=== PATIENT | male | born 1935 | race Caucasian/White ===

== ENCOUNTER → 2016-12-19 | Outpatient (CLI) | payer MEDICARE, BC ==
[2016-12-19 12:02] LABS: INR 1.1 (<1.2); Partial Thromboplastin Time 26.3 sec (22.0-30.0); Prothrombin Time 10.9 sec (9.0-12.0)
== END | disposition home or self-care (01) ==
LOC: LABWHC1 11:05
PROVIDERS: ATTEND Physical Medicine & Rehabilitation
DX: E11.40 Type 2 diabetes mellitus with diabetic neuropathy, unspecified (principal); M51.16 Intervertebral disc disorders with radiculopathy, lumbar region; M47.27 Other spondylosis with radiculopathy, lumbosacral region; M16.11 Unilateral primary osteoarthritis, right hip; Z51.81 Encounter for therapeutic drug level monitoring; Z79.01 Long term (current) use of anticoagulants
CPT/HCPCS: 36415; 85610; 85730

== ENCOUNTER → 2017-01-01 | Outpatient (CLI) | payer MEDICARE, BC ==
--- NOTE | 2017-01-01 16:36 | MR ---
EXAMINATION TYPE: MR lumbar spine wo con DATE OF EXAM: 01/01/2017 COMPARISON: NONE HISTORY: Spondylosis with myelopathy, pain in buttocks CONTRAST: 0 mL intravenous Gadavist. TECHNIQUE: Multiplanar, multisequence images of the lumbar spine were acquired. FINDINGS: Cord terminates at the L1 level L5-S1: Broad-based disc bulge has mild to moderate anterior thecal sac flattening. No AP spinal canal stenosis present. Facet hypertrophy is present greater on the right. Some increased signal is presen t within the disc space on the sagittal T2-weighted images. Small annular tear may be present. There is moderate right foraminal stenosis and minimal left foraminal stenosis. L4-L5: Broad-based disc bulge is present with moderate anterior thecal sac compression. Facet hypertr ophy is present with ligamentum flavum laxity. There is a severe spinal canal stenosis at this level. Severe right foraminal stenosis with disc bulge contacting the exiting nerve root is present. Severe left foraminal stenosis is also present. L3-L4: Subligamentous disc herniation is present with moderate anterior thecal sac compression. No AP spinal canal stenosis is present. Moderate bilateral foraminal narrowing is present. There may be so me contact with the exiting nerve root on the right. L2-L3: Mild disc bulge has anterior thecal sac contact. No AP spinal canal stenosis is present. Neura l foramen are patent. . L1-L2: Disc herniation is present with mild to moderate anterior thecal sac compression. No AP spinal canal stenosis present. No cord contact is evident. There is mild bilateral foraminal narrowing. Fac et hypertrophy is present. T12-L1: No significant disc bulge or disc herniation. No spinal canal stenosis. No foraminal stenos is. . Hemangiomas are noted within the L3 and L4 vertebral levels. IMPRESSION: 1. Severe Spinal canal stenosis L4-5 secondary to disc bulge and ligamentum flavum laxity. 2. Multilevel disc herniations with mild to moderate anterior thecal sac compression including L5-S1, subligamentous disc herniation L3-4, and disc bulging L2-3. 3. Multilevel foraminal narrowing due to facet hypertrophy with some contribution from disc bulging. Correlate for radicular symptoms.
== END | disposition home or self-care (01) ==
LOC: RADMRIMAIN 14:42
PROVIDERS: ATTEND Physical Medicine & Rehabilitation
DX: M48.061 Spinal stenosis, lumbar region without neurogenic claudication (principal); M99.73 Connective tissue and disc stenosis of intervertebral foramina of lumbar region; M51.16 Intervertebral disc disorders with radiculopathy, lumbar region; G95.29 Other cord compression; M53.86 Other specified dorsopathies, lumbar region
CPT/HCPCS: 72148

== ENCOUNTER → 2017-01-18 | Outpatient (CLI) | payer MEDICARE, BC ==
[2017-01-18 12:51] LABS: INR 1.2 (<1.2); Partial Thromboplastin Time 26.1 sec (22.0-30.0); Prothrombin Time 11.6 sec (9.0-12.0)
== END | disposition home or self-care (01) ==
LOC: LABWHC1 12:09
PROVIDERS: ATTEND Physical Medicine & Rehabilitation
DX: M16.11 Unilateral primary osteoarthritis, right hip (principal); M47.27 Other spondylosis with radiculopathy, lumbosacral region; M48.062 Spinal stenosis, lumbar region with neurogenic claudication; M51.17 Intervertebral disc disorders with radiculopathy, lumbosacral region; E11.40 Type 2 diabetes mellitus with diabetic neuropathy, unspecified; Z79.01 Long term (current) use of anticoagulants
CPT/HCPCS: 36415; 85610; 85730

== ENCOUNTER → 2017-02-27 | Outpatient (CLI) | payer MEDICARE, BC ==
[2017-02-27 15:08] LABS: INR 1.1 (<1.2); Partial Thromboplastin Time 24.7 sec (22.0-30.0); Prothrombin Time 10.8 sec (9.0-12.0)
== END | disposition home or self-care (01) ==
LOC: LABWHC1 14:26
PROVIDERS: ATTEND Physical Medicine & Rehabilitation
DX: M47.817 Spondylosis without myelopathy or radiculopathy, lumbosacral region (principal); M16.11 Unilateral primary osteoarthritis, right hip; M51.26 Other intervertebral disc displacement, lumbar region; M48.062 Spinal stenosis, lumbar region with neurogenic claudication; M51.17 Intervertebral disc disorders with radiculopathy, lumbosacral region; E11.40 Type 2 diabetes mellitus with diabetic neuropathy, unspecified; Z79.01 Long term (current) use of anticoagulants
CPT/HCPCS: 36415; 85610; 85730

== ENCOUNTER 2017-10-19 18:29 | Inpatient (IN) | payer MEDICARE, BC ==
[2017-10-19] MEDS ORDERED: SODIUM CHLORIDE 0.9% 1,000 ML IV STA (18:41)
[2017-10-19] MEDS ORDERED: SODIUM CHLORIDE 0.9% 500 ML IV STA (18:41)
--- NOTE | 2017-10-19 18:46 | ED ---
General Adult HPI - General Chief complaint: Neuro Symptoms/Deficit Stated complaint: altered mental status Time Seen by Provider: 10/19/17 18:40 Source: patient, RN notes reviewed, old records reviewed Mode of arrival: ambulatory Limitations: no limitations - History of Present Illness Initial comments: 81-year-old male presenting with chief complaint of confusion. Patient is accompanied by a friend who was with the patient throughout the day today. They took a nap at approximately 1 to 2 PM, patient woke at 4 PM, with confusion. This did not resolve over the next 12 hours and 45 minutes. Patient was brought to the emergency department at 1840. Patient denies headache. Denies focal numbness or weakness. He is confused, alert and oriented 1-2. Denies chest pain. Denies abdominal pain. Denies nausea vomiting. No history of fever. - Related Data Home Medications Medication Instructions Recorded Confirmed Losartan Potassium [Cozaar] 50 mg PO HS 10/07/14 10/19/17 Metoprolol Tartrate [Lopressor] 25 mg PO BID 10/07/14 10/19/17 Warfarin Sodium [Coumadin] 4 mg PO HS 10/07/14 10/19/17 Baclofen [Lioresal] 10 mg PO HS 10/19/17 10/19/17 Digoxin [Digitek] 125 mcg PO HS 10/19/17 10/19/17 Furosemide [Lasix] 20 mg PO DAILY 10/19/17 10/19/17 Furosemide [Lasix] 20 mg PO HS 10/19/17 10/19/17 Gabapentin [Neurontin] 300 mg PO HS 10/19/17 10/19/17 Insulin Detemir [Levemir Flextouch] 44 unit SQ HS 10/19/17 10/19/17 metFORMIN HCL 1,000 mg PO BID 10/19/17 10/19/17 Allergies Allergy/AdvReac Type Severity Reaction Status Date / Time No Known Allergies Allergy Verified 10/19/17 20:08 Review of Systems ROS Statement: Those systems with pertinent positive or pertinent negative responses have been documented in the HPI. ROS Other: All systems not noted in ROS Statement are negative. Past Medical History Past Medical History: Atrial Fibrillation, Diabetes Mellitus, Hypertension Additional Past Medical History / Comment(s): NEUROPATHY History of Any Multi-Drug Resistant Organisms: None Reported Past Surgical History: Hernia Repair, Orthopedic Surgery Additional Past Surgical History / Comment(s): teeth pulled, SARY HIP REPLACED, TURP, bilateral cataract removal and lens implants Past Anesthesia/Blood Transfusion Reactions: No Reported Reaction Past Psychological History: No Psychological Hx Reported Smoking Status: Never smoker Past Alcohol Use History: None Reported Past Drug Use History: None Reported - Past Family History Mother History Unknown: Yes Additional Family Medical History / Comment(s): Mother at age 70 from unknown cause. Father Family Medical History: Asthma Additional Family Medical History / Comment(s): Father from unknown cause but did have asthma. Sister(s) Additional Family Medical History / Comment(s): He has one sister that from an aneurysm. Patient has no brothers. He has sons with no major medical problems. General Exam Limitations: no limitations General appearance: alert, in no apparent distress Head exam: Present: atraumatic, normocephalic Eye exam: Present: normal appearance, PERRL, EOMI ENT exam: Present: mucous membranes dry Neck exam: Present: normal inspection. Absent: tenderness, meningismus Respiratory exam: Present: normal lung sounds bilaterally. Absent: respiratory distress, wheezes Cardiovascular Exam: Present: regular rate, normal rhythm GI/Abdominal exam: Present: soft. Absent: distended, tenderness Extremities exam: Present: normal inspection, normal capillary refill. Absent: pedal edema Neurological exam: Present: alert, CN II-XII intact, other (NIH is 0). Absent: oriented X3, motor sensory deficit Skin exam: Present: warm, dry, intact. Absent: cyanosis, diaphoretic Course Vital Signs 10/19/17 10/19/17 10/19/17 18:35 19:24 20:57 Temperature 98.5 F Pulse Rate 59 L 63 52 L Respiratory 18 16 17 Rate Blood Pressure 193/108 179/104 190/88 O2 Sat by Pulse 95 96 98 Oximetry 10/19/17 10/19/17 21:52 22:10 Temperature Pulse Rate 65 64 Respiratory 18 18 Rate Blood Pressure 245/105 180/64 O2 Sat by Pulse 99 96 Oximetry EKG Findings - EKG Comments: EKG Findings:: EKG: Atrial fibrillation, right bundle branch block, rate of 67, QRS duration 142, QTC 456 Medical Decision Making - Medical Decision Making 81-year-old male sitting with an episode of confusion and altered mental status. Patient has a nonfocal neurologic exam. He is confused which is new for this patient. Symptoms began approximately 5 hours prior to arrival. Significantly elevated blood pressure on initial evaluation 210/100. Otherwise well-appearing. Denies any specific complaints. Head CT is obtained is negative for intracranial hemorrhage or mass effect. CT angiography is obtained , does show a small right vertebral artery with no acute vascular pathology. CBC and CMP are unremarkable. Urinalysis is clear. INR is therapeutic. Patient will be admitted to the hospital for neurology evaluation. This episode of altered mental status is concerning for TIA versus CVA. - Lab Data Result diagrams: 10/19/17 19:00 10/19/17 19:00 Lab Results 10/19/17 10/19/17 10/19/17 Range/Units 19:00 19:00 19:00 WBC 8.5 (3.8-10.6) k/uL RBC 5.45 (4.30-5.90) m/uL Hgb 16.5 (13.0-17.5) gm/dL Hct 48.9 (39.0-53.0) % MCV 89.7 (80.0-100.0) fL MCH 30.3 (25.0-35.0) pg MCHC 33.8 (31.0-37.0) g/dL RDW 14.1 (11.5-15.5) % Plt Count 187 (150-450) k/uL Neutrophils % 65 % Lymphocytes % 22 % Monocytes % 5 % Eosinophils % 4 % Basophils % 1 % Neutrophils # 5.6 (1.3-7.7) k/uL Lymphocytes # 1.9 (1.0-4.8) k/uL Monocytes # 0.5 (0-1.0) k/uL Eosinophils # 0.3 (0-0.7) k/uL Basophils # 0.1 (0-0.2) k/uL PT (9.0-12.0) sec INR (<1.2) APTT (22.0-30.0) sec Sodium 140 (137-145) mmol/L Potassium 4.6 (3.5-5.1) mmol/L Chloride 105 (98-107) mmol/L Carbon Dioxide 26 (22-30) mmol/L Anion Gap 9 mmol/L BUN 17 (9-20) mg/dL Creatinine 0.86 (0.66-1.25) mg/dL Est GFR (CKD-EPI)AfAm >90 (>60 ml/min/1.73 sqM) Est GFR (CKD-EPI)NonAf 81 (>60 ml/min/1.73 sqM) Glucose 203 H (74-99) mg/dL Calcium 9.3 (8.4-10.2) mg/dL Total Bilirubin 0.8 (0.2-1.3) mg/dL AST 29 (17-59) U/L ALT 38 (21-72) U/L Alkaline Phosphatase 73 (38-126) U/L Total Creatine Kinase 49 L (55-170) U/L CK-MB (CK-2) 1.7 (0.0-2.4) ng/mL CK-MB (CK-2) Rel Index 3.5 Troponin I 0.012 (0.000-0.034) ng/mL Total Protein 7.3 (6.3-8.2) g/dL Albumin 4.5 (3.5-5.0) g/dL Urine Color Urine Appearance (Clear) Urine pH (5.0-8.0) Ur Specific [place] (1.001-1.035) Urine Protein (Negative) Urine Glucose (UA) (Negative) Urine Ketones (Negative) Urine Blood (Negative) Urine Nitrite (Negative) Urine Bilirubin (Negative) Urine Urobilinogen (<2.0) mg/dL Ur Leukocyte Esterase (Negative) 10/19/17 10/19/17 Range/Units 19:00 21:40 WBC (3.8-10.6) k/uL RBC (4.30-5.90) m/uL Hgb (13.0-17.5) gm/dL Hct (39.0-53.0) % MCV (80.0-100.0) fL MCH (25.0-35.0) pg MCHC (31.0-37.0) g/dL RDW (11.5-15.5) % Plt Count (150-450) k/uL Neutrophils % % Lymphocytes % % Monocytes % % Eosinophils % % Basophils % % Neutrophils # (1.3-7.7) k/uL Lymphocytes # (1.0-4.8) k/uL Monocytes # (0-1.0) k/uL Eosinophils # (0-0.7) k/uL Basophils # (0-0.2) k/uL PT 25.9 H (9.0-12.0) sec INR 2.9 H (<1.2) APTT 33.7 H (22.0-30.0) sec Sodium (137-145) mmol/L Potassium (3.5-5.1) mmol/L Chloride (98-107) mmol/L Carbon Dioxide (22-30) mmol/L Anion Gap mmol/L BUN (9-20) mg/dL Creatinine (0.66-1.25) mg/dL Est GFR (CKD-EPI)AfAm (>60 ml/min/1.73 sqM) Est GFR (CKD-EPI)NonAf (>60 ml/min/1.73 sqM) Glucose (74-99) mg/dL Calcium (8.4-10.2) mg/dL Total Bilirubin (0.2-1.3) mg/dL AST (17-59) U/L ALT (21-72) U/L Alkaline Phosphatase (38-126) U/L Total Creatine Kinase (55-170) U/L CK-MB (CK-2) (0.0-2.4) ng/mL CK-MB (CK-2) Rel Index Troponin I (0.000-0.034) ng/mL Total Protein (6.3-8.2) g/dL Albumin (3.5-5.0) g/dL Urine Color Yellow Urine Appearance Clear (Clear) Urine pH 7.0 (5.0-8.0) Ur Specific [place] 1.037 H (1.001-1.035) Urine Protein Trace H (Negative) Urine Glucose (UA) 3+ H (Negative) Urine Ketones Negative (Negative) Urine Blood Negative (Negative) Urine Nitrite Negative (Negative) Urine Bilirubin Negative (Negative) Urine Urobilinogen <2.0 (<2.0) mg/dL Ur Leukocyte Esterase Negative (Negative) Disposition Clinical Impression: Transient cerebral ischemia, Cerebrovascular accident Disposition: ADMITTED IP TO THIS [facility] Condition: Stable Is patient prescribed a controlled substance at d/c from ED?: No Referrals: Dominick Damian MD [Primary Care Provider] - 1-2 days Decision to Admit Reason: Admit from EC Decision Date: 10/19/17 Decision Time: 22:45
[2017-10-19 19:08] LABS: Basophils # (A) 0.1 k/uL (0-0.2); Basophils % (A) 1 %; Eosinophils # (A) 0.3 k/uL (0-0.7); Eosinophils % (A) 4 %; HCT 48.9 % (39.0-53.0); HGB 16.5 gm/dL (13.0-17.5); Lymphocytes # (A) 1.9 k/uL (1.0-4.8); Lymphocytes % (A) 22 %; MCH 30.3 pg (25.0-35.0); MCHC 33.8 g/dL (31.0-37.0); MCV 89.7 fL (80.0-100.0); Mean Platelet Volume 8.4; Monocytes # (A) 0.5 k/uL (0-1.0); Monocytes % (A) 5 %; Neutrophils # (A) 5.6 k/uL (1.3-7.7); Neutrophils % (A) 65 %; Platelet Count 187 k/uL (150-450); RBC 5.45 m/uL (4.30-5.90); RDW 14.1 % (11.5-15.5); WBC 8.5 k/uL (3.8-10.6)
[2017-10-19 19:18] LABS: ALT 38 U/L (21-72); AST 29 U/L (17-59); Albumin 4.5 g/dL (3.5-5.0); Alkaline Phosphatase 73 U/L (38-126); Anion Gap 9 mmol/L; Blood Urea Nitrogen 17 mg/dL (9-20); Calcium 9.3 mg/dL (8.4-10.2); Carbon Dioxide 26 mmol/L (22-30); Chloride 105 mmol/L (98-107); Glucose 203 mg/dL (74-99); Potassium 4.6 mmol/L (3.5-5.1); Sodium 140 mmol/L (137-145); Total Bilirubin 0.8 mg/dL (0.2-1.3); Total Protein 7.3 g/dL (6.3-8.2)
--- NOTE | 2017-10-19 19:21 | CT ---
EXAMINATION TYPE: CT brain wo con DATE OF EXAM: 10/19/2017 COMPARISON: 12/26/2014 HISTORY: Sudden onset confusion CT DLP: 1098.8 mGycm Automated exposure control for dose reduction was used. FINDINGS: There is cerebral cortical atrophy. There is enlargement of the ventricles. There is no mass effect n or midline shift. There is no sign of intracranial hemorrhage. Calvarium is intact. There is some muc osal thickening in the ethmoid air cells. IMPRESSION: CEREBRAL ATROPHY. NO ACUTE INTRACRANIAL ABNORMALITY. NO CHANGE.
--- NOTE | 2017-10-19 19:25 | XR ---
EXAMINATION TYPE: XR chest 2V DATE OF EXAM: 10/19/2017 COMPARISON: 12/26/2014 HISTORY: Weakness TECHNIQUE: Frontal and lateral views of the chest are obtained. FINDINGS: There is no heart failure nor confluent pneumonic infiltrate. There is some linear density at the right posterior lung base. There are chest leads. Bony thorax is intact. IMPRESSION: There is probably some atelectasis at the right posterior lung base that is new compared to old exam.
[2017-10-19 19:37] LABS: INR 2.9 (<1.2); Partial Thromboplastin Time 33.7 sec (22.0-30.0); Prothrombin Time 25.9 sec (9.0-12.0)
[2017-10-19 19:45] LABS: Creatine Kinase MB 1.7 ng/mL (0.0-2.4); Troponin I 0.012 ng/mL (0.000-0.034)
--- NOTE | 2017-10-19 21:13 | CT ---
EXAMINATION TYPE: CT angio head neck DATE OF EXAM: 10/19/2017 HISTORY: sudden onset confusion/neuro deficits COMPARISON: None CT DLP: 583.70 mGycm. Automated Exposure Control for Dose Reduction was Utilized. TECHNIQUE: CTA scan of the neck is performed with IV Contrast, patient injected with 65 mL of Isovue 370, axial images are obtained, coronal and sagittal reformatted images are reviewed. Three-D recons tructed images are created on an independent workstation and reviewed. FINDINGS: There is normal branching pattern of the great vessels on the aortic arch. There is arterial flow in both vertebral arteries. There is a very small right vertebral artery. There is arterial flow in the common internal and external carotid arteries bilaterally. The carotid artery bifurcations are widely patent. There is no evidence of carotid artery aneurysm or dissection. There is arterial flow in both internal carotid arteries at the skull base. There is arterial flow i n the anterior middle and posterior cerebral arteries. There is normal appearance of the vertebrobasi lar artery system. I see no evidence of aneurysm or neovascularity. There is no mass effect. There is no evidence of intracranial arterial stenosis. There is normal contrast opacification of the venous sinuses. IMPRESSION: There is a diminutive right vertebral artery. Otherwise negative CT angiogram of the head and neck.
[2017-10-19] MEDS ORDERED: SODIUM CHLORIDE 0.9% 1,000 ML IV SCH (21:45)
[2017-10-19] MEDS ORDERED: hydrALAZINE HCL 20 MG/ML 1 ML VIAL IVP STA ×2 (21:47→23:26)
[2017-10-19 21:56] LABS: Appearance,Urine Clear (Clear); Bilirubin,Urine Negative (Negative); Blood,Urine Negative (Negative); Color,Urine Yellow; Glucose,Urine (UA) 3+ (Negative); Ketones,Urine Negative (Negative); Leukocyte Esterase,Urine Negative (Negative); Nitrite,Urine Negative (Negative); Protein,Urine Trace (Negative); Specific Gravity,Urine 1.037 (1.001-1.035); Urobilinogen,Urine <2.0 mg/dL (<2.0)
[2017-10-19] MEDS ORDERED: ASPIRIN 325 MG TAB PO STA (22:34)
[2017-10-19] MEDS ORDERED: NALOXONE 0.4 MG/ML 1 ML VIAL IV PRN (23:02)
[2017-10-20 00:17] VITALS: RESP 18; BMI 31.1
[2017-10-20 05:52] LABS: Glucose,Whole Blood 199 mg/dL (75-99)
[2017-10-20] MEDS: INSULIN ASPART 100 UNIT/ML 1 ML 10 ML VIAL SQ SCH ×2 (06:46→12:41)
[2017-10-20 07:42] VITALS: BP 178/85; PULSE 71; TEMP 97.3
[2017-10-20] MEDS ORDERED: METOPROLOL TARTRATE 25 MG TAB PO SCH (09:00)
[2017-10-20] MEDS ORDERED: FUROSEMIDE 20 MG TAB PO SCH ×2 (09:00→21:00)
[2017-10-20] MEDS ORDERED: metFORMIN 500 MG TAB PO SCH (09:00)
--- NOTE | 2017-10-20 10:17 | P.HPIM ---
History of Present Illness H&P Date: 10/20/17 Chief Complaint: Altered mental status This is 81 years old male who was found to be confused at home and brought to the emergency department by his friend who lives with him in the same house. Patient stated that he had similar episode 6 month ago that was for short amount of time but resolved on its own. Patient stated that he's compliment with his medication and very organized taking his medication on daily basis and follows up with his primary care physician on regular basis as well. Patient currently is alert and oriented 3 without any confusion denying chest pain, shortness breath, nausea, vomiting, dumping, dizziness, lightheadedness, blurry vision, dysuria or recent upper respiratory symptoms. Patient denied any weight loss night sweats or low-grade fever. Patient was found to be confused after waking up from his nap yesterday by his friend who brought him to the emergency department that his symptoms resolved during the hospital stay and patient continued to be at baseline mental status for the last 12 hours according to the nursing staff and his physical examination revealed normal finding neurology was at bedside at the time when I examined the patient Review of Systems All 14 systems reviewed and negative except as above Past Medical History Past Medical History: Atrial Fibrillation, Diabetes Mellitus, Hypertension Additional Past Medical History / Comment(s): NEUROPATHY History of Any Multi-Drug Resistant Organisms: None Reported Past Surgical History: Hernia Repair, Orthopedic Surgery Additional Past Surgical History / Comment(s): teeth pulled, SARY HIP REPLACED, TURP, bilateral cataract removal and lens implants Past Anesthesia/Blood Transfusion Reactions: No Reported Reaction Past Psychological History: No Psychological Hx Reported Smoking Status: Never smoker Past Alcohol Use History: None Reported Additional Past Alcohol Use History / Comment(s): Patient is a lifelong nonsmoker. He denies any alcohol use. Past Drug Use History: None Reported - Past Family History Mother History Unknown: Yes Additional Family Medical History / Comment(s): Mother at age 70 from unknown cause. Father Family Medical History: Asthma Additional Family Medical History / Comment(s): Father from unknown cause but did have asthma. Sister(s) Additional Family Medical History / Comment(s): He has one sister that from an aneurysm. Patient has no brothers. He has sons with no major medical problems. Medications and Allergies Home Medications Medication Instructions Recorded Confirmed Type Losartan Potassium [Cozaar] 50 mg PO HS 10/07/14 10/19/17 History Metoprolol Tartrate [Lopressor] 25 mg PO BID 10/07/14 10/19/17 History Warfarin Sodium [Coumadin] 4 mg PO 10/07/14 10/19/17 History Baclofen [Lioresal] 10 mg PO HS 10/19/17 10/19/17 History Digoxin [Digitek] 125 mcg PO HS 10/19/17 10/19/17 History Furosemide [Lasix] 20 mg PO DAILY 10/19/17 10/19/17 History Furosemide [Lasix] 20 mg PO HS 10/19/17 10/19/17 History Gabapentin [Neurontin] 300 mg PO HS 10/19/17 10/19/17 History Insulin Detemir [Levemir Flextouch] 44 unit SQ 10/19/17 10/19/17 History metFORMIN HCL 1,000 mg PO BID 10/19/17 10/19/17 History Allergies Allergy/AdvReac Type Severity Reaction Status Date / Time No Known Allergies Allergy Verified 10/19/17 20:08 Physical Exam Vitals: Vital Signs Temp Pulse Pulse Resp BP BP Pulse Ox 10/20/17 07:41 97.3 F L 71 18 178/85 94 L 10/20/17 04:00 97.6 F 78 18 164/79 95 10/20/17 00:09 97.7 F 99 18 186/78 97 10/20/17 00:00 99 18 10/19/17 23:34 97.6 F 95 17 184/86 98 10/19/17 23:24 74 18 204/91 98 10/19/17 22:10 64 18 180/64 96 10/19/17 21:52 65 18 245/105 99 10/19/17 20:57 52 L 17 190/88 98 10/19/17 19:24 63 16 179/104 96 10/19/17 18:35 98.5 F 59 L 18 193/108 95 Intake and Output 10/19/17 10/20/17 10/20/17 22:59 06:59 14:59 Intake Total 10 Output Total 500 Balance -490 Intake: IV 10 0.9 10 Output: Urine 500 Other: Voiding Method Urinal Weight 104.326 kg 100.7 kg Gen.: in stated age, no acute distress Heart: Normal S1-S2 Lungs: Clear to auscultation bilaterally Abdomen: Soft, no tenderness, positive bowel sounds in all 4 quadrant no guarding or rebound Skin: No new rash Psych: Alert and oriented 3 Neuro: No focal deficit, alert and oriented 3 in no acute distress, strength of intact and equal in all 4 extremities, patient has flat affect Results CBC & Chem 7: 10/19/17 19:00 10/19/17 19:00 Labs: Abnormal Lab Results - Last 24 Hours (Table) 10/19/17 10/19/17 10/19/17 Range/Units 19:00 19:00 19:00 PT 25.9 H (9.0-12.0) sec INR 2.9 H (<1.2) APTT 33.7 H (22.0-30.0) sec Glucose 203 H (74-99) mg/dL POC Glucose (mg/dL) (75-99) mg/dL Total Creatine Kinase 49 L (55-170) U/L Ur Specific [place] (1.001-1.035) Urine Protein (Negative) Urine Glucose (UA) (Negative) 10/19/17 10/20/17 Range/Units 21:40 05:50 PT (9.0-12.0) sec INR (<1.2) APTT (22.0-30.0) sec Glucose (74-99) mg/dL POC Glucose (mg/dL) 199 H (75-99) mg/dL Total Creatine Kinase (55-170) U/L Ur Specific [place] 1.037 H (1.001-1.035) Urine Protein Trace H (Negative) Urine Glucose (UA) 3+ H (Negative) Thrombosis Risk Factor Assmnt - Choose All That Apply Any of the Below Risk Factors Present?: No Other Risk Factors: Yes Each Risk Factor Represents 3 Points: Age 75 years or older Other congenital or acquired thrombophilia - If yes, enter type in comment: No Thrombosis Risk Factor Assessment Total Risk Factor Score: 3 Thrombosis Risk Factor Assessment Level: Moderate Risk Assessment and Plan Assessment: 1. Altered mental status. 2. Diabetes mellitus with peripheral neuropathy. 3. Hypertension. 4. Atrial fibrillation. 5. Chronic back pain. 6. Osteoarthritis Etiology for his altered mental status is still living clear the patient currently alert and oriented 4 in no acute distress back at baseline without any change in his condition since admission I have discussed the case with neurology at the bedside and differential diagnoses includes but not limited to early dementia, global amnesia versus TIA. All the imaging and the blood work during this hospital stay turned to be part negative patient is back at baseline without any focal deficit his INR is therapeutic and felt stable from the medical standpoint for discharge and neurology would like patient to follow- up with him outpatient for further evaluation plan discussed with the patient was agreeable to the above and we will follow-up closely
--- NOTE | 2017-10-20 10:19 | P.DS ---
Providers Date of admission: 10/19/17 23:08 Attending physician: Parris Alvarez MD Consults: 10/19/17 23:03 Consult Physician Routine Consulting Provider: Maritza Shepard Consult Reason/Comments: Altered mental status, concern for CVA Do you want consulting provider notified?: Yes Primary care physician: [facility] Course: This is 81 years old male who presented to the hospital with altered mental status when he was found by his friend slightly confused after waking up from nap symptoms resolved during the hospital stay and all appropriate imaging and testing turned to be negative patient felt stable from the medical standpoint and after discussion with neurology patient can be discharged home safely to follow-up with his primary care physician within 7 days and with neurologist and 15 days for completion of the workup and possible need for MRI in the future patient was discharged in stable condition Patient Condition at Discharge: Stable Plan - Discharge Summary Discharge Rx Participant: No New Discharge Prescriptions: No Action Warfarin Sodium [Coumadin] 4 mg PO HS Metoprolol Tartrate [Lopressor] 25 mg PO BID Losartan Potassium [Cozaar] 50 mg PO HS metFORMIN HCL 1,000 mg PO BID Gabapentin [Neurontin] 300 mg PO HS Furosemide [Lasix] 20 mg PO DAILY Digoxin [Digitek] 125 mcg PO HS Insulin Detemir [Levemir Flextouch] 44 unit SQ HS Furosemide [Lasix] 20 mg PO HS Baclofen [Lioresal] 10 mg PO HS Discharge Medication List Losartan Potassium [Cozaar] 50 mg PO HS 10/07/14 [History] Metoprolol Tartrate [Lopressor] 25 mg PO BID 10/07/14 [History] Warfarin Sodium [Coumadin] 4 mg PO HS 10/07/14 [History] Baclofen [Lioresal] 10 mg PO HS 10/19/17 [History] Digoxin [Digitek] 125 mcg PO HS 10/19/17 [History] Furosemide [Lasix] 20 mg PO DAILY 10/19/17 [History] Furosemide [Lasix] 20 mg PO HS 10/19/17 [History] Gabapentin [Neurontin] 300 mg PO HS 10/19/17 [History] Insulin Detemir [Levemir Flextouch] 44 unit SQ HS 10/19/17 [History] metFORMIN HCL 1,000 mg PO BID 10/19/17 [History] Follow up Appointment(s)/Referral(s): Dominick Damian MD [Primary Care Provider] - 1-2 days
--- NOTE | 2017-10-20 10:21 | P.CNNES ---
History of Present Illness Consult date: 10/20/17 Reason for Consult: Patient admitted with TIA and acute confusion. History of Present Illness: This patient is a 81-year-old right-handed white male who was brought into the emergency room at [facility] yesterday evening for evaluation of acute alteration of mental status. Patient apparently had taken a nap yesterday afternoon at about 2 PM. When he had awakened he was found to have increased confusion and disorientation. Her episode lasted over 5 hours in duration. A friend was with him at the time and apparently noted the change in his mentation. He denied any headache or focal weakness. He was brought by EMS to the emergency room where he was further evaluated in the ER by Dr. Martinez. He was sent for a computed tomography scan of the brain which revealed cerebral atrophy with no acute intracranial abnormality. He was subsequent admitted to hospital with possible TIA and stroke like symptoms. The patient apparently showed significant improvement in his mental status soon after admission. His major concern has been long-standing history of chronic atrial fibrillation. He has been taking Coumadin on a regular basis for treatment. His INR on admission was therapeutic at 2.9. He also has history of underlying diabetes mellitus and apparently his blood sugars have been under fairly good control. Patient states he is now back to baseline. He is still not aware of what had occurred with his initial symptoms. He was sent for a CT angiogram of the head and neck which revealed a diminutive right vertebral artery. Otherwise a CT angiogram of the head and neck was reported negative. The patient is now resting comfortably at bedside. He denies any further recurrence of confusion or disorientation. His neurological examination at this time is nonfocal. Neurology is now been consulted for further evaluation and recommendations. Review of Systems Constitutional: Denies chills, Denies fever Eyes: denies blurred vision, denies pain Ears, nose, mouth and throat: Denies headache, Denies sore throat Cardiovascular: Denies chest pain, Denies shortness of breath Respiratory: Denies cough Gastrointestinal: Denies abdominal pain, Denies diarrhea, Denies nausea, Denies vomiting Musculoskeletal: Denies myalgias Integumentary: Denies pruritus, Denies rash Neurological: Reports change in mentation, Reports confusion, Denies numbness, Denies weakness Psychiatric: Denies anxiety, Denies depression Endocrine: Denies fatigue, Denies weight change Past Medical History Past Medical History: Atrial Fibrillation, Diabetes Mellitus, Hypertension Additional Past Medical History / Comment(s): NEUROPATHY History of Any Multi-Drug Resistant Organisms: None Reported Past Surgical History: Hernia Repair, Orthopedic Surgery Additional Past Surgical History / Comment(s): teeth pulled, SARY HIP REPLACED, TURP, bilateral cataract removal and lens implants Past Anesthesia/Blood Transfusion Reactions: No Reported Reaction Past Psychological History: No Psychological Hx Reported Smoking Status: Never smoker Past Alcohol Use History: None Reported Additional Past Alcohol Use History / Comment(s): Patient is a lifelong nonsmoker. He denies any alcohol use. Past Drug Use History: None Reported - Past Family History Mother History Unknown: Yes Additional Family Medical History / Comment(s): Mother at age 70 from unknown cause. Father Family Medical History: Asthma Additional Family Medical History / Comment(s): Father from unknown cause but did have asthma. Sister(s) Additional Family Medical History / Comment(s): He has one sister that from an aneurysm. Patient has no brothers. He has sons with no major medical problems. Medications and Allergies Home Medications Medication Instructions Recorded Confirmed Type Losartan Potassium [Cozaar] 50 mg PO HS 10/07/14 10/19/17 History Metoprolol Tartrate [Lopressor] 25 mg PO BID 10/07/14 10/19/17 History Warfarin Sodium [Coumadin] 4 mg PO HS 10/07/14 10/19/17 History Baclofen [Lioresal] 10 mg PO HS 10/19/17 10/19/17 History Digoxin [Digitek] 125 mcg PO HS 10/19/17 10/19/17 History Furosemide [Lasix] 20 mg PO DAILY 10/19/17 10/19/17 History Furosemide [Lasix] 20 mg PO HS 10/19/17 10/19/17 History Gabapentin [Neurontin] 300 mg PO HS 10/19/17 10/19/17 History Insulin Detemir [Levemir Flextouch] 44 unit SQ HS 10/19/17 10/19/17 History metFORMIN HCL 1,000 mg PO BID 10/19/17 10/19/17 History Allergies Allergy/AdvReac Type Severity Reaction Status Date / Time No Known Allergies Allergy Verified 10/19/17 20:08 Physical Examination - Vital Signs Vital Signs: Vital Signs Temp Pulse Pulse Resp BP BP Pulse Ox 08/11/18 07:41 97.3 F L 71 18 178/85 94 L 10/20/17 04:00 97.6 F 78 18 164/79 95 10/20/17 00:09 97.7 F 99 18 186/78 97 10/20/17 00:00 99 18 10/19/17 23:34 97.6 F 95 17 184/86 98 10/19/17 23:24 74 18 204/91 98 10/19/17 22:10 64 18 180/64 96 10/19/17 21:52 65 18 245/105 99 10/19/17 20:57 52 L 17 190/88 98 10/19/17 19:24 63 16 179/104 96 10/19/17 18:35 98.5 F 59 L 18 193/108 95 Intake and Output 10/19/17 10/20/17 10/20/17 22:59 06:59 14:59 Intake Total 10 Output Total 500 Balance -490 Intake: IV 10 0.9 10 Output: Urine 500 Other: Voiding Method Urinal Weight 104.326 kg 100.7 kg - Constitutional General appearance: average body habitus, cooperative - EENT EENT: PERRL, mucous membranes moist - Respiratory Respiratory: lungs clear, normal breath sounds - Cardiovascular Cardiovascular: regular rate, normal S1, normal S2 Extremities: no peripheral edema bilaterally - Gastrointestinal Gastrointestinal: normoactive bowel sounds - Integumentary Integumentary: normal - Neurologic Cranial nerve examination: PERRL, EOMI, VFF, V1/V2/V3 grossly intact, face symmetric, intact gag reflex, intact corneal reflex, normal palatal elevation Speech examination: intact Sensorimotor examination: intact Motor examination - right side: 4/5: biceps, triceps, wrist flexion, wrist extension, cupola operator, hip flexors, knee extensors, dorsiflexion, toe extension (EHL) , plantarflexion Motor examination - left side: 4/5: biceps, triceps, wrist flexion, wrist extension, cupola operator, hip flexors, knee extensors, dorsiflexion, toe extension (EHL) , plantarflexion Detailed sensory examination: intact Reflex and gait examination: intact Reflexes: 1+: ankle, bicep, knee, tricep - Musculoskeletal Musculoskeletal: no pain - Psychiatric Psychiatric: mood/affect appropriate, cooperative Results - Laboratory Findings CBC and BMP: 10/19/17 19:00 10/19/17 19:00 Abnormal Lab Findings: Abnormal Labs 10/19/17 10/19/17 10/19/17 19:00 19:00 19:00 PT 25.9 H INR 2.9 H APTT 33.7 H Glucose 203 H POC Glucose (mg/dL) Total Creatine Kinase 49 L Ur Specific [place] Urine Protein Urine Glucose (UA) 10/19/17 10/20/17 21:40 05:50 PT INR APTT Glucose POC Glucose (mg/dL) 199 H Total Creatine Kinase Ur Specific [place] 1.037 H Urine Protein Trace H Urine Glucose (UA) 3+ H Assessment and Plan (1) Chronic atrial fibrillation Current Visit: Yes Status: Acute Code(s): I48.2 - CHRONIC ATRIAL FIBRILLATION SNOMED Code(s): 755638139 (2) Acute metabolic encephalopathy Current Visit: Yes Status: Acute Code(s): G93.41 - METABOLIC ENCEPHALOPATHY SNOMED Code(s): 82751698 (3) Diabetes mellitus Current Visit: Yes Status: Acute Code(s): E11.9 - TYPE 2 DIABETES MELLITUS WITHOUT COMPLICATIONS SNOMED Code(s): 65038132 (4) Transient cerebral ischemia Current Visit: Yes Status: Acute Code(s): G45.9 - TRANSIENT CEREBRAL ISCHEMIC ATTACK, UNSPECIFIED SNOMED Code(s): 276119707 Plan: This patient is a 81-year-old right-handed white male who was brought into the emergency room late last night with episode of acute confusion. Patient apparently had taken a nap at 2 PM and suddenly awoke at about 4 PM with onset of confusion and disorientation. He was brought to the emergency room at [facility] for further evaluation. He was seen in the ER by Dr. Martinez. He underwent a computed tomography scan of the brain and CT angiogram of the head and neck. Results are as noted above. CAT scan of the brain failed to reveal any evidence of acute stroke. He does have history of underlying chronic atrial fibrillation and is been taking Coumadin at home. His INR in the ER was therapeutic at 2.9. He was admitted to hospital for further evaluation. His neurological examination today is nonfocal. Clinical history is suggesting possibility of acute TIA. We recommend that he be maintained on his Coumadin and to continue weekly monitoring and to keep his INR between 2-3 at all times. Case was discussed today with Dr. Mejia who is he admitting physician. Plans are to discharge him home and he may follow-up in the outpatient neurology clinic in 3-4 weeks. Patient's neurological exam findings at this time are nonfocal. Recommend tight control of his diabetes and his blood pressure as risk factors for recurrent TIA. His overall prognosis at this time remains guarded. Time with Patient: Greater than 30
[2017-10-20 12:42] LABS: Hemoglobin A1C 7.4 % (4.0-6.0)
[2017-10-20] MEDS ORDERED: WARFARIN 2 MG TAB PO SCH (18:00)
[2017-10-20] MEDS ORDERED: LOSARTAN 50 MG TAB PO SCH (21:00)
[2017-10-20] MEDS ORDERED: DIGOXIN 125 MCG TAB PO SCH (21:00)
[2017-10-20] MEDS ORDERED: GABAPENTIN 300 MG CAP PO SCH (21:00)
[2017-10-20] MEDS ORDERED: BACLOFEN 10 MG TAB PO SCH (21:00)
[2017-10-20] MEDS ORDERED: INSULIN DETEMIR 100 UNIT/ML 10 ML VIAL SQ SCH (21:00)
== END 2017-10-20 13:17 | disposition home or self-care (01) | DRG 69 ==
LOC: EC 18:29 → 6SEL 23:08
PROVIDERS: ADMIT Internal Medicine; ATTEND Internal Medicine
DX: G45.9 Transient cerebral ischemic attack, unspecified (principal); E11.42 Type 2 diabetes mellitus with diabetic polyneuropathy; G89.29 Other chronic pain; M54.9 Dorsalgia, unspecified; I48.2 Chronic atrial fibrillation; I10 Essential (primary) hypertension; M19.90 Unspecified osteoarthritis, unspecified site; R29.700 NIHSS score 0; Z96.1 Presence of intraocular lens; Z96.643 Presence of artificial hip joint, bilateral; Z79.01 Long term (current) use of anticoagulants; Z79.899 Other long term (current) drug therapy; Z79.4 Long term (current) use of insulin; Z82.5 Family history of asthma and other chronic lower respiratory diseases; Z98.42 Cataract extraction status, left eye; Z98.41 Cataract extraction status, right eye
CPT/HCPCS: 36415; 70450; 70496; 70498; 71046; 80053; 81003; 82550; 82553; 83036; 84484; 85025; 85610; 85730; 93005; 96361; 96374; 96376; 99285

== ENCOUNTER → 2018-09-10 | Outpatient (CLI) | payer MEDICARE, BC | END | disposition home or self-care (01) | LOC: LABWHC1 10:11 | PROVIDERS: ATTEND Nurse Practitioner Adult Health | DX: E78.2 Mixed hyperlipidemia (principal) | CPT/HCPCS: 36415; 80061; 82550; 84450; 84460 ==

== ENCOUNTER 2020-07-27 15:59 | Inpatient (IN) | payer MEDICARE, BC ==
--- NOTE | 2020-07-27 17:03 | ED ---
General Adult HPI - General Chief complaint: Abdominal Pain Stated complaint: stomach problems Time Seen by Provider: 07/27/20 16:00 Source: patient, RN notes reviewed, old records reviewed Mode of arrival: wheelchair Limitations: no limitations - History of Present Illness Initial comments: This is an 84-year-old male who presents to the emergency department complaining that his urine is dark and he can barely go. Patient states he eats and drinks a lot but over the last few days but feeling is always not urinating enough. Patient also believes over the last 6 months he may have lost some weight even though he is eating very well. Patient denies any fever chills. Patient states he feels quite right. Patient states he has no pain anywhere. Patient denies any vomiting or diarrhea. Patient denies any injury or trauma. Patient denies any back pain. - Related Data Home Medications Medication Instructions Recorded Confirmed Acetaminophen Tab [Tylenol Tab] 1,000 mg PO Q6HR PRN 07/27/20 07/27/20 Allergies Allergy/AdvReac Type Severity Reaction Status Date / Time No Known Allergies Allergy Verified 07/27/20 16:53 Review of Systems ROS Statement: Those systems with pertinent positive or pertinent negative responses have been documented in the HPI. ROS Other: All systems not noted in ROS Statement are negative. Past Medical History Past Medical History: Atrial Fibrillation, Diabetes Mellitus, Hypertension Additional Past Medical History / Comment(s): NEUROPATHY History of Any Multi-Drug Resistant Organisms: None Reported Past Surgical History: Hernia Repair, Orthopedic Surgery Additional Past Surgical History / Comment(s): teeth pulled, SARY HIP REPLACED, TURP, bilateral cataract removal and lens implants Past Anesthesia/Blood Transfusion Reactions: No Reported Reaction Past Psychological History: No Psychological Hx Reported Smoking Status: Never smoker Past Alcohol Use History: None Reported Past Drug Use History: None Reported - Past Family History Mother History Unknown: Yes Additional Family Medical History / Comment(s): Mother at age 70 from unknown cause. Father Family Medical History: Asthma Additional Family Medical History / Comment(s): Father from unknown cause but did have asthma. Sister(s) Additional Family Medical History / Comment(s): He has one sister that from an aneurysm. Patient has no brothers. He has sons with no major medical problems. General Exam - General Exam Comments Initial Comments: GENERAL: Patient is well-developed and well-nourished. Patient is nontoxic and well- hydrated and is in no acute distress. ENT: Neck is soft and supple. No significant lymphadenopathy is noted. Oropharynx is clear. Moist mucous membranes. Neck has full range of motion without eliciting any pain. EYES: The sclera were anicteric and conjunctiva were pink and moist. Extraocular movements were intact and pupils were equal round and reactive to light. Eyelids were unremarkable. PULMONARY: Unlabored respirations. Good breath sounds bilaterally. No audible rales rhonchi or wheezing was noted. CARDIOVASCULAR: There is a regular rate and rhythm without any murmurs gallops or rubs. ABDOMEN: Soft and nontender with normal bowel sounds. SKIN: Skin is clear with no lesions or rashes and otherwise unremarkable. NEUROLOGIC: Patient is alert and oriented x3. Cranial nerves II through XII are grossly intact. Motor and sensory are also intact. Normal speech, volume and content. Symmetrical smile. MUSCULOSKELETAL: Normal extremities with adequate strength and full range of motion. No lower extremity swelling or edema. No calf tenderness. LYMPHATICS: No significant lymphadenopathy is noted PSYCHIATRIC: Normal psychiatric evaluation. Limitations: no limitations Course Vital Signs 07/27/20 07/27/20 16:00 19:37 Temperature 98.0 F Pulse Rate 93 88 Respiratory 20 18 Rate Blood Pressure 185/90 184/97 O2 Sat by Pulse 96 98 Oximetry Medical Decision Making - Medical Decision Making Patient is not taking any of his medications and so sugars up over 400 and his blood pressures elevated. I gave the patient he will likely emergency department I also gave the patient hydralazine for blood pressure. I spoke with Dr. Damian he wants patient admitted so he can [place] with medications. Patient will be admitted and placed on a sliding scale. - Lab Data Result diagrams: 07/27/20 17:14 07/27/20 17:14 Lab Results 07/27/20 07/27/20 07/27/20 Range/Units 17:14 17:14 17:14 WBC 8.7 (3.8-10.6) k/uL RBC 4.91 (4.30-5.90) m/uL Hgb 15.4 (13.0-17.5) gm/dL Hct 45.3 (39.0-53.0) % MCV 92.2 (80.0-100.0) fL MCH 31.4 (25.0-35.0) pg MCHC 34.1 (31.0-37.0) g/dL RDW 13.2 (11.5-15.5) % Plt Count 129 L (150-450) k/uL MPV 9.4 Neutrophils % 75 % Lymphocytes % 14 % Monocytes % 5 % Eosinophils % 5 % Basophils % 1 % Neutrophils # 6.5 (1.3-7.7) k/uL Lymphocytes # 1.2 (1.0-4.8) k/uL Monocytes # 0.4 (0-1.0) k/uL Eosinophils # 0.4 (0-0.7) k/uL Basophils # 0.0 (0-0.2) k/uL Sodium 135 L (137-145) mmol/L Potassium 4.4 (3.5-5.1) mmol/L Chloride 103 (98-107) mmol/L Carbon Dioxide 24 (22-30) mmol/L Anion Gap 8 mmol/L BUN 15 (9-20) mg/dL Creatinine 0.64 L (0.66-1.25) mg/dL Est GFR (CKD-EPI)AfAm >90 (>60 ml/min/1.73 sqM) Est GFR (CKD-EPI)NonAf 89 (>60 ml/min/1.73 sqM) Glucose 407 H (74-99) mg/dL Calcium 9.1 (8.4-10.2) mg/dL Total Bilirubin 0.7 (0.2-1.3) mg/dL AST 17 (17-59) U/L ALT 13 (4-49) U/L Alkaline Phosphatase 90 (38-126) U/L Total Protein 6.6 (6.3-8.2) g/dL Albumin 3.9 (3.5-5.0) g/dL Urine Color Light Yellow Urine Appearance Clear (Clear) Urine pH 5.5 (5.0-8.0) Ur Specific [place] 1.030 (1.001-1.035) Urine Protein Negative (Negative) Urine Glucose (UA) 4+ H (Negative) Urine Ketones Negative (Negative) Urine Blood Negative (Negative) Urine Nitrite Negative (Negative) Urine Bilirubin Negative (Negative) Urine Urobilinogen <2.0 (<2.0) mg/dL Ur Leukocyte Esterase Negative (Negative) Disposition Clinical Impression: Hypertensive urgency, Hyperglycemia Disposition: ADMITTED IP TO THIS HOSP Referrals: Paul Damian MD [Primary Care Provider] - 1-2 days Time of Disposition: 20:03
[2020-07-27 17:23] LABS: Basophils % (A) 1 %; Eosinophils # (A) 0.4 k/uL (0-0.7); Eosinophils % (A) 5 %; HCT 45.3 % (39.0-53.0); HGB 15.4 gm/dL (13.0-17.5); Lymphocytes # (A) 1.2 k/uL (1.0-4.8); Lymphocytes % (A) 14 %; MCH 31.4 pg (25.0-35.0); MCHC 34.1 g/dL (31.0-37.0); MCV 92.2 fL (80.0-100.0); Mean Platelet Volume 9.4; Monocytes # (A) 0.4 k/uL (0-1.0); Monocytes % (A) 5 %; Neutrophils # (A) 6.5 k/uL (1.3-7.7); Neutrophils % (A) 75 %; Platelet Count 129 k/uL (150-450); RBC 4.91 m/uL (4.30-5.90); RDW 13.2 % (11.5-15.5); WBC 8.7 k/uL (3.8-10.6)
[2020-07-27 17:37] LABS: ALT 13 U/L (4-49); AST 17 U/L (17-59); African American GFR (CKD) >90 (>60 ml/min/1.73 sqM); Albumin 3.9 g/dL (3.5-5.0); Alkaline Phosphatase 90 U/L (38-126); Anion Gap 8 mmol/L; Blood Urea Nitrogen 15 mg/dL (9-20); Calcium 9.1 mg/dL (8.4-10.2); Carbon Dioxide 24 mmol/L (22-30); Chloride 103 mmol/L (98-107); Glucose 407 mg/dL (74-99); Non-African American GFR(CKD) 89 (>60 ml/min/1.73 sqM); Potassium 4.4 mmol/L (3.5-5.1); Sodium 135 mmol/L (137-145); Total Bilirubin 0.7 mg/dL (0.2-1.3); Total Protein 6.6 g/dL (6.3-8.2)
[2020-07-27 18:40] LABS: Appearance,Urine Clear (Clear); Bilirubin,Urine Negative (Negative); Blood,Urine Negative (Negative); Color,Urine Light Yellow; Glucose,Urine (UA) 4+ (Negative); Ketones,Urine Negative (Negative); Leukocyte Esterase,Urine Negative (Negative); Nitrite,Urine Negative (Negative); PH, Urine 5.5 (5.0-8.0); Protein,Urine Negative (Negative); Urobilinogen,Urine <2.0 mg/dL (<2.0)
[2020-07-27] MEDS ORDERED: hydrALAZINE HCL 20 MG/ML 1 ML VIAL IVP STA (19:50)
[2020-07-27] MEDS ORDERED: INSULIN ASPART (NovoLOG) 100 UNIT/ML VIAL SQ ONE (20:01)
[2020-07-27] MEDS ORDERED: SODIUM CHLORIDE 0.9% 1,000 ML IV ONE (20:06)
[2020-07-27] MEDS ORDERED: METOPROLOL TARTRATE 25 MG TAB PO STA (20:15)
[2020-07-27 21:43] LABS: Glucose,Whole Blood 264 mg/dL (75-99)
[2020-07-27] MEDS: INSULIN ASPART (NovoLOG) 100 UNIT/ML VIAL SQ SCH (21:49)
[2020-07-28] MEDS: lisinopriL 10 MG TAB PO SCH ×2 (02:51→21:50)
[2020-07-28] MEDS: metFORMIN 500 MG TAB PO SCH ×3 (02:51→18:23)
--- NOTE | 2020-07-28 03:08 | HP ---
HISTORY AND PHYSICAL HISTORY OF PRESENT ILLNESS: 84-year-old white male he says his urine is dark. He can barely go. He said he drinks a lot over the last few days. He is not urinating enough. He lost some weight. He is not eating well. He stopped all his medicines at home including blood pressure, diabetes mellitus. No fever or chills MEDICATIONS: Home medicines: Tylenol. ALLERGIES: Negative. REVIEW OF SYSTEMS: Fourteen-point review of systems otherwise negative except for memory loss. PAST MEDICAL HISTORY: Atrial fibrillation, diabetes mellitus, hypertension, neuropathy, hernia repair, orthopedic surgery, teeth pulled, hip replaced, TURP, cataract removals. SOCIAL HISTORY: Does not smoke, no alcohol. No drugs. FAMILY HISTORY: Mother at age 70, unknown causes. Father asthma. Sister aneurysm. PHYSICAL EXAMINATION: Vital signs stable. Afebrile. He is nontoxic, appears a little bit dry. Dry mucous membranes. HEENT within normal limits. Pupils equal, round, reactive. LUNGS: Clear. CARDIOVASCULAR: S1, S2. ABDOMEN: Soft. SKIN: Warm, dry, and intact. Neurologic: Cranial nerves are intact. Psych: Fair mood and affect. ASSESSMENT: 1. Uncontrolled diabetes mellitus, noncompliance. 2. Hypertension acceleration. We will place on sliding scale. Start metformin. Blood pressure medications. Prognosis guarded. Follow up next 24 to 48 hours. We will make sure he does not have a UTI. MMODL / IJN: [id number] /
[2020-07-28 06:14] LABS: Glucose,Whole Blood 143 mg/dL (75-99)
[2020-07-28 07:31] LABS: Glucose,Whole Blood 148 mg/dL (75-99)
[2020-07-28] MEDS: METOPROLOL TARTRATE 25 MG TAB PO SCH ×2 (09:12→21:02)
[2020-07-28] MEDS: INSULIN ASPART (NovoLOG) 100 UNIT/ML VIAL SQ SCH ×4 (09:13→21:02)
[2020-07-28 10:19] LABS: Chol/HDL Ratio 4.03; LDL Cholesterol,Calculated 93.4 mg/dL (0.0-131.0); VLDL Calculation 15.6 mg/dL (5.00-40.00)
[2020-07-28 10:28] LABS: PSA Annual Screen 0.7 ng/mL (0.0-4.0)
[2020-07-28 11:30] LABS: Glucose,Whole Blood 299 mg/dL (75-99)
[2020-07-28 17:16] LABS: Glucose,Whole Blood 179 mg/dL (75-99)
[2020-07-28 20:19] LABS: Glucose,Whole Blood 195 mg/dL (75-99)
--- NOTE | 2020-07-28 20:42 | XR ---
EXAMINATION TYPE: XR chest 1V portable DATE OF EXAM: 07/28/2020 COMPARISON: 10/19/2017. HISTORY: Shortness of breath. TECHNIQUE: Single frontal view of the chest is obtained. FINDINGS: There is no focal air space opacity, pleural effusion, or pneumothorax seen. The cardiac silhouette size is enlarged. The osseous structures are intact. IMPRESSION: No acute process.
--- NOTE | 2020-07-29 00:18 | PN ---
PROGRESS NOTE 84-year-old white male admitted with uncontrolled diabetes mellitus. Feels like his stomach is going to have ground dirt in it or something to that nature. His sugars A1c is 11.0. Sugars in 100s. He has been on metformin over the last 24-48 hours, appears to be improving. His blood pressure is better on his lisinopril. Possibly discharge him home tomorrow as he is greatly improved. We are going to do an EKG, chest x-ray. Cardiovascular S1, S2. Lungs clear. He looks weak and fatigued. GI soft. Hematology: Negative Homans. Chest x-ray is normal. EKG pending. PROGNOSIS: Guarded. Possible discharge home tomorrow. MMODL / IJN: [id number] /
[2020-07-29 05:11] LABS: ALT 10 U/L (4-49); AST 17 U/L (17-59); African American GFR (CKD) >90 (>60 ml/min/1.73 sqM); Albumin 3.5 g/dL (3.5-5.0); Alkaline Phosphatase 81 U/L (38-126); Anion Gap 5 mmol/L; Blood Urea Nitrogen 14 mg/dL (9-20); Calcium 9.1 mg/dL (8.4-10.2); Carbon Dioxide 29 mmol/L (22-30); Chloride 102 mmol/L (98-107); Glucose 126 mg/dL (74-99); Non-African American GFR(CKD) 82 (>60 ml/min/1.73 sqM); Potassium 3.9 mmol/L (3.5-5.1); Sodium 136 mmol/L (137-145); Total Bilirubin 1.1 mg/dL (0.2-1.3); Total Protein 6.1 g/dL (6.3-8.2)
[2020-07-29 07:11] LABS: Glucose,Whole Blood 141 mg/dL (75-99)
[2020-07-29] MEDS: METOPROLOL TARTRATE 25 MG TAB PO SCH ×2 (07:38→21:09)
[2020-07-29] MEDS: metFORMIN 500 MG TAB PO SCH ×2 (07:38→18:06)
[2020-07-29] MEDS: INSULIN ASPART (NovoLOG) 100 UNIT/ML VIAL SQ SCH ×4 (07:38→21:09)
[2020-07-29 11:25] LABS: Glucose,Whole Blood 191 mg/dL (75-99)
[2020-07-29 14:03] VITALS: BMI 21.7
--- NOTE | 2020-07-29 14:25 | CDI ---
Documentation Clarification Form Date: 07/29/2020 02:02:07 PM From: Patrizia Charles RN, CCDS Admit Date: 07/29/2020 10:39:00 AM Patient Name: Brandt Balderas Visit Number: [id number] Discharge Date: ATTENTION: The Clinical Documentation Specialists (CDI) and [facility] Coding Staff appreciate your assistance in clarifying documentation. Please respond to the clarification below the line at the bottom and electronically sign. The CDI & [facility] Coding staff will review the response and follow-up if needed. Please note: Queries are made part of the Legal Health Record. If you have any questions, please contact the author of this message via ITS. Dr. Paul Damian Uncontrolled Diabetes mellitus is documented in the H/P on 07/27/20 Additional specificity regarding the diabetes diagnosis is requested. History/Risk Factors: Atrial Fibrillation, Diabetes Mellitus Hypertension Clinical Indicators: 84-year-old male present to ED on 07/27 with complaints of abdominal pain, urine dark and barely going. His initial blood sugar was 407 with Hemoglobin A1c (07/28) 12.0 07/27 Vital signs in ED 185/90 93 20 98.0 07/27 Labs RBS 407 Treatment: Novolog Insulin SQ ACHS ALIZA Glucophage 500 MG PO BID W/Meals Monitor blood sugars ACHS Please clarify Uncontrolled Diabetes if known: [ ] Diabetes Type 2 with Hyperglycemia [ ] Other, please specify [ ] Unable to Determine (Template Last Revised: May 2020) MTDD
[2020-07-29 17:45] LABS: Glucose,Whole Blood 197 mg/dL (75-99)
[2020-07-29 20:26] LABS: Glucose,Whole Blood 249 mg/dL (75-99)
[2020-07-29] MEDS: lisinopriL 10 MG TAB PO SCH (21:09)
--- NOTE | 2020-07-30 03:58 | PN ---
PROGRESS NOTE An 84-year-old white male who appears to be extremely weak, unable ambulate. Sugars are now under control in the mid 100 to 200s. Cardiovascular S1-S2. Lungs clear. GI soft. Extremities very poor strength, unable to ambulate without a walker and minimal walking. We will get PT/OT involved. Continue to monitor him for generalized weakness and control his diabetes mellitus and hypertension, which appears to be improved. Echo is pending for his atrial fibrillation. Cardiology consult. PROGNOSIS: Guarded. MMODL / IJN: [id number] /
[2020-07-30 07:06] LABS: Glucose,Whole Blood 132 mg/dL (75-99)
[2020-07-30] MEDS: METOPROLOL TARTRATE 25 MG TAB PO SCH ×2 (07:53→21:57)
[2020-07-30] MEDS: INSULIN ASPART (NovoLOG) 100 UNIT/ML VIAL SQ SCH ×4 (07:53→21:57)
[2020-07-30] MEDS: metFORMIN 500 MG TAB PO SCH ×2 (07:53→17:16)
[2020-07-30 11:23] LABS: Glucose,Whole Blood 128 mg/dL (75-99)
--- NOTE | 2020-07-30 12:26 | P.CRDCN ---
History of Present Illness History of present illness: HISTORY OF PRESENTING ILLNESS This is a pleasant 84-year-old male past medical history significant for chronic persistent atrial fibrillation, hypertension, type 2 diabetes, dyslipidemia. Patient is a poor historian. He follows in the office with Dr. Mejia, last seen in 04/2019. We have been asked to see in consultation for atrial fibrillation. Patient presents to the hospital with complaints of dark urine, urinary retention, weakness, unable to ambulate. Patient states that he lives with a girlfriend. He has not been taking any of his medications at home. Per nursing, patient has been having many falls at home, unsteady, difficult to ambulate him with 2 assist. On admission, patient hyperglycemic Blood sugars 400s. From chart review and office records from 04/2019, patient was previously Coumadin for his atrial fibrillation, however at that time patient does not cla im to get his INRs checked. Unsure when this medication was stopped. However, patient has had increased falls at home. Patient is seen and examined at bedside, no acute distress. Alert, oriented x 2. Patient denies chest pain, palpitations, shortness of breath. He denies lightheaded or dizziness, however, patient is not ambulating in his room. EKG reveals atrial fibrillation, right bundle branch block, HR 87. Prior EKGs are similar. Patient not on telemetry, but per vital signs and exam patient appears rate controlled. Chest xray no acute cardiopulmonary process. Laboratory reviewed, sodium 136, K 3.9, sCr 0.79, BUN 14, blood sugar 126. Current home daily cardiac medications include lisino pril 10mg daily, metoprolol tartrate 25mg BID. REVIEW OF SYSTEMS At the time of my exam: CONSTITUTIONAL: Denies fever or chills. CARDIOVASCULAR: Denies chest pain, shortness of breath, orthopnea, PND or palpitations. RESPIRATORY: Denies cough. GASTROINTESTINAL: Denies abdominal pain, diarrhea, constipation, nausea or vomiting. MUSCULOSKELETAL: Denies myalgias. NEUROLOGIC: +weakness, Denies numbness, tingling, headacbe ENDOCRINE: +fatigue Denies weight change, polydipsia or polyurina. GENITOURINARY: Denies burning, hematuria or urgency with micturation. HEMATOLOGIC: Denies history of anemia or bleeding. PHYSICAL EXAMINATION BP 162/77 HR 82 afebrile, maintaining oxygen saturations 96% on room air. CONSTITUTIONAL: No apparent distress. HEENT: Head is normocephalic. Pupils are equal, round. Sclerae anicteric. Mucous membranes of the mouth are moist. No JVD. No carotid bruit. CHEST EXAMINATION: Lungs are clear to auscultation. No chest wall tenderness is noted on palpation or with deep breathing. HEART EXAMINATION: Regular rate and rhythm. S1, S2 heard. No murmurs, gallops or rub. ABDOMEN: Soft, nontender. Positive bowel sounds. EXTREMITIES: 2+ peripheral pulses, no lower extremity edema and no calf tenderness. NEUROLOGIC EXAMINATION: Patient is awake, alert and oriented x2. ASSESSMENT Chronic persistent atrial fibrillation -[id number] score 4. Not on anticoagulation at this time due to frequent falls at home. Hypertension Type 2 Diabetes Dyslipidemia PLAN 2D echocardiogram ordered, will follow up on the results. Patient was previously on coumadin, however, was not getting his INR checks. Unsure when this medication was stopped. Patient also with increased falls and unsteadiness at home, coumadin could have been stopped due to this. PT/OT to evaluate patient. Patient may be going to Rehab instead of home, however, he may refuse. If patient is going to rehab would benefit from anticoagulation. However, if patient refuses and returns home, anticoagulation most likely not indicated due to patient's recurrent falls. Case management consulted for Eliquis coverage. Eliquis is $450/month, however, patient could get a free month on discharge. Continue home metoprolol tartrate 25mg BID Will increase lisinopril to 20mg daily Further recommendations based on clinical course Nurse Practitioner note has been reviewed, I agree with a documented findings and plan of care. Patient was seen and examined. Past Medical History Past Medical History: Atrial Fibrillation, Diabetes Mellitus, Hypertension, Osteoarthritis (OA), Syncope Additional Past Medical History / Comment(s): IDDM type II, neuropathy bilateral feet, arthritis multiple joints. History of Any Multi-Drug Resistant Organisms: None Reported Past Surgical History: Hernia Repair, Orthopedic Surgery Additional Past Surgical History / Comment(s): Bilateral total hip arthroplasty, TURP, umbilical and R inguinal hernia repairs, bilateral cataract removals/lens implants, teeth extraction. Past Anesthesia/Blood Transfusion Reactions: No Reported Reaction Smoking Status: Never smoker - Past Family History Mother History Unknown: Yes Additional Family Medical History / Comment(s): Mother at age 70 from unknown cause. Father Family Medical History: Asthma Additional Family Medical History / Comment(s): Father from unknown cause but did have asthma. Sister(s) Family Medical History: Vascular Disorder Additional Family Medical History / Comment(s): He has one sister that from an aneurysm. Medications and Allergies Home Medications Medication Instructions Recorded Confirmed Type Acetaminophen Tab [Tylenol Tab] 1,000 mg PO Q6HR PRN 07/27/20 07/27/20 History Metoprolol Tartrate [Lopressor] 25 mg PO BID 30 Days #60 tab 07/29/20 Rx lisinopriL [Zestril] 10 mg PO DAILY@2100 30 Days #30 tab 07/29/20 Rx metFORMIN HCL [Glucophage] 500 mg PO BID-W/MEALS 30 Days #60 07/29/20 Rx tab Allergies Allergy/AdvReac Type Severity Reaction Status Date / Time No Known Allergies Allergy Verified 07/27/20 16:53 Physical Exam Vitals: Vital Signs Temp Pulse Pulse Resp BP Pulse Ox 07/30/20 05:00 97.6 F 82 16 162/77 96 07/29/20 20:08 98.1 F 93 16 151/95 94 L 07/29/20 11:45 97.7 F 72 16 113/71 95 Intake and Output 07/29/20 07/30/20 07/30/20 22:59 06:59 14:59 Intake Total 250 Output Total 875 Balance 250 -875 Intake: Oral 250 Output: Urine 875 Other: Voiding Method Diaper Diaper Incontinent Incontinent # Voids 1 4 # Bowel Movements 1 Results 07/27/20 17:14 07/29/20 04:37 Current Medications Generic Name Dose Route Start Last Admin Trade Name Freq PRN Reason Stop Dose Admin Insulin Aspart 0 unit 07/27/20 21:00 07/30/20 07:53 Insulin Aspart (Novolog) 100 Unit/Ml Vial SQ 1 unit ACHS ALIZA Administration Protocol Lisinopril 10 mg 07/27/20 23:45 07/29/20 21:09 Lisinopril 10 Mg Tab PO 10 mg DAILY@2100 ALIZA Administration Metformin HCl 500 mg 07/27/20 23:45 07/30/20 07:53 Metformin 500 Mg Tab PO 500 mg BID-W/MEALS ALIZA Administration Metoprolol Tartrate 25 mg 07/28/20 09:00 07/30/20 07:53 Metoprolol Tartrate 25 Mg Tab PO 25 mg BID ALIZA Administration Intake and Output 07/29/20 07/30/20 07/30/20 22:59 06:59 14:59 Intake Total 250 Output Total 875 Balance 250 -875 Intake: Oral 250 Output: Urine 875 Other: Voiding Method Diaper Diaper Incontinent Incontinent # Voids 1 4 # Bowel Movements 1 07/27/20 17:14 07/29/20 04:37
[2020-07-30 16:39] LABS: Glucose,Whole Blood 173 mg/dL (75-99)
[2020-07-30 21:44] LABS: Glucose,Whole Blood 191 mg/dL (75-99)
[2020-07-30] MEDS: lisinopriL 20 MG TAB PO SCH (21:57)
[2020-07-31 07:09] LABS: Glucose,Whole Blood 139 mg/dL (75-99)
[2020-07-31] MEDS: INSULIN ASPART (NovoLOG) 100 UNIT/ML VIAL SQ SCH ×4 (07:20→20:50)
[2020-07-31] MEDS: metFORMIN 500 MG TAB PO SCH ×2 (07:22→17:38)
[2020-07-31] MEDS: METOPROLOL TARTRATE 25 MG TAB PO SCH ×2 (07:22→20:50)
[2020-07-31 11:56] LABS: Glucose,Whole Blood 163 mg/dL (75-99)
--- NOTE | 2020-07-31 12:41 | PN ---
PROGRESS NOTE DATE OF SERVICE: 07/30/2020 84-year-old white male who is extremely weak and unable to get out of bed to move. His legs are weak. He is dizzy, lightheaded, going to get physical therapy working with him. He wants to go to [facility] on the [place] for further rehab. CARDIOVASCULAR: S1, S2. Lungs clear. GI soft. Hematology: Negative Homans. Psych: Fair mood and affect. ASSESSMENT: 1. Generalized weakness. 2. Uncontrolled diabetes mellitus. 3. Osteoarthritis. 4. Degenerative disc disease. 5. 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 PROGNOSIS: Guarded. Get physical therapy and to try to get him into rehab center at this time. Cardiology has seen him for atrial fibrillation and recommend some blood thinners if he goes to a custodial. Otherwise, stay on aspirin once a day. Prognosis guarded. MMROSEL / SUNDAYN: [id number] /
--- NOTE | 2020-07-31 14:21 | P.PN ---
Subjective Progress Note Date: 07/31/20 This is a pleasant 84-year-old gentleman with a past medical history significant for chronic persistent atrial fibrillation, hypertension, diabetes mellitus type 2, dyslipidemia. He is a poor historian. He follows in the office infrequently with Dr. Puckett. We were asked to see the patient in c onsultation for atrial fibrillation. He had presented with complaints of dark urine, urinary retention, weakness and inability to ambulate. He apparently been living with his girlfriend. He been having frequent falls at home. He was previously on Coumadin however has not been taking it and were unsure how long he has been off the Coumadin. Then decided that due to frequent falls if the patient does go home he is not a good candidate for anticoagulation. He is being evaluated for possible rehab placement. Vital signs are stable. He has been afebrile. He continues on lisinopril 20 mg by mouth daily, metformin, NovoLog and metoprolol titrate 25 mg by mouth twice a day. Objective - Vital Signs Vital signs: Vital Signs Temp 98.0 F 07/31/20 11:23 Pulse 73 07/31/20 11:23 Resp 14 07/31/20 11:23 BP 152/86 07/31/20 11:23 Pulse Ox 97 07/31/20 11:23 Intake & Output 07/30/20 07/31/20 07/31/20 18:59 06:59 18:59 Intake Total 460 Output Total 50 960 Balance -50 -500 Intake: Oral 460 Output: Urine 960 Stool 50 Other: Voiding Method Diaper Diaper Urinal Incontinent Incontinent # Voids 1 # Bowel Movements 0 - Exam PHYSICAL EXAMINATION: HEENT: Head is atraumatic, normocephalic. Pupils equal, round. Neck is supple. There is no elevated jugular venous pressure. HEART EXAMINATION: Heart sounds irregularly irregular, S1 and S2 normal. No murmur or gallop heard. CHEST EXAMINATION: Lungs reveal coarse wheezing throughout. No chest wall tenderness is noted on palpation or with deep breathing. ABDOMEN: Soft, nontender. Bowel sounds are heard. No organomegaly noted. EXTREMITIES: 2+ peripheral pulses with evidence of trace peripheral edema and no calf tenderness noted. NEUROLOGIC patient is awake, alert and oriented x2. . - Labs CBC & Chem 7: 07/27/20 17:14 07/29/20 04:37 Labs: Abnormal Lab Results - Last 24 Hours (Table) 07/30/20 07/30/20 07/31/20 Range/Units 16:38 21:41 07:07 POC Glucose (mg/dL) 173 H 191 H 139 H (75-99) mg/dL 07/31/20 Range/Units 11:55 POC Glucose (mg/dL) 163 H (75-99) mg/dL Assessment and Plan Assessment: #1 chronic persistent atrial fibrillation, chads score of at least 4, not on anticoagulation due to frequent falls #2 hypertension #3 hyperlipidemia #4 diabetes type 2 Plan: From cardiology's perspective medications were reviewed and will continue the same. We will review the echocardiogram. At this time hold off on anticoagulation. We will reassess at time of discharge depending on whether he goes home or to a rehab facility. The above dictated assessment and findings were discussed with signing physician. The impression and plan of care have been directed as dictated. Sandra Shine, Nurse Practitioner, acting as scribe for signing physician.
[2020-07-31 16:57] LABS: Glucose,Whole Blood 156 mg/dL (75-99)
[2020-07-31 20:34] LABS: Glucose,Whole Blood 204 mg/dL (75-99)
[2020-07-31] MEDS: lisinopriL 20 MG TAB PO SCH (20:50)
[2020-08-01 07:10] LABS: Glucose,Whole Blood 124 mg/dL (75-99)
[2020-08-01] MEDS: INSULIN ASPART (NovoLOG) 100 UNIT/ML VIAL SQ SCH ×4 (07:45→21:57)
--- NOTE | 2020-08-01 07:49 | PN ---
PROGRESS NOTE An 84-year-old white male who presents with severe hyperglycemia, hypertension, osteoarthritis, generalized weakness. PT OT and long-term placement at [facility] on Sunday. Cardiovascular S1-S2. Lungs clear. GI soft. Hematology negative Homans. Psych fair mood and affect. ASSESSMENT: 1. Uncontrolled diabetes mellitus. 2. Hypertension. Prognosis is guarded. Follow up in the next 24 to 48 hours with rehab placement at [facility] on the [place] on Sunday. MMODL / IJN: [id number] /
[2020-08-01] MEDS: METOPROLOL TARTRATE 25 MG TAB PO SCH ×2 (08:20→21:57)
[2020-08-01] MEDS: metFORMIN 500 MG TAB PO SCH ×2 (08:20→18:04)
--- NOTE | 2020-08-01 12:05 | CONS ---
ESSENCE Carlton is an 84-year-old gentleman who is admitted to hospital with chronic persistent atrial fibrillation. He has had recurrent falls and thought not to be a candidate for Coumadin both because he was noncompliant with INR and recurrent falls. If he is to be transferred to an extended care facility we can start him on Eliquis 2.5 b.i.d. This morning patient is doing well and is free of symptoms. EXAM: Afebrile, heart rate is 76 beats per minute, blood pressure is 148/79, respiratory rate is 18, O2 saturation is 95% on room air. There is no jugular venous distention. Carotid upstroke is normal. There is no bruit. Chest exam reveals good air entry bilaterally. Heart exam reveals first and second heart sounds, irregular rhythm and a systolic murmur at the apex. Abdomen is soft. Exam of extremities did not reveal any edema. Peripheral pulses are felt. ASSESSMENT: Chronic permanent atrial fibrillation. PLAN: Heart rate is well controlled. Continue current medications. Started on Eliquis 2.5 b.i.d. if he is admitted to an extended care facility. If not, he is not a candidate for anticoagulation and will continue with rate control MMODL / IJN: [id number] /
[2020-08-01 12:14] LABS: Glucose,Whole Blood 166 mg/dL (75-99)
[2020-08-01 12:54] VITALS: RESP 16
[2020-08-01 17:19] LABS: Glucose,Whole Blood 157 mg/dL (75-99)
--- NOTE | 2020-08-01 21:04 | P.PN ---
Progress Note - Text Progress Note Date: 08/01/20 presenting complaint: Atrial fibrillation History of presenting complaint: This is a patient with history of chronic persistent atrial fibrillation, hypertension, diabetes, hyperlipidemia. Not a good historian. Does follow with Dr. Puckett. Presented with dark urine urinary retention weakness inability to ambulate. Had been living with his girlfriend. Having falls at home. He has taken himself off Coumadin. Patient also not felt to be a good candidate for anticoagulation Today: Nose informed me that patient coughs with food and liquids. Patient states that he eats very quickly and sometimes chokes on food. Review of systems: Was done for constitutional, cardiovascular, GI, pulmonary. relevant finding as above Active Medications Insulin Aspart (Insulin Aspart (Novolog) 100 Unit/Ml Vial) 0 unit SQ [facility]; Protocol Last Admin: 08/01/20 18:04 Dose: 1 unit Documented by: Lisinopril (Lisinopril 20 Mg Tab) 20 mg PO DAILY@2100 [facility] Last Admin: 07/31/20 20:50 Dose: 20 mg Documented by: Metformin HCl (Metformin 500 Mg Tab) 500 mg PO BID-W/MEALS [facility] Last Admin: 08/01/20 18:04 Dose: 500 mg Documented by: Metoprolol Tartrate (Metoprolol Tartrate 25 Mg Tab) 25 mg PO BID [facility] Last Admin: 08/01/20 08:20 Dose: 25 mg Documented by: On examination: VITAL SIGNS: [97.5, 74, 16, 142/76, 95% room air] GENERAL APPEARANCE: laying in bed, awake EYES: Pupils equal. Conjunctiva normal. NECK: JVD not raised. Mass not palpable. RESPIRATORY: Respiratory effort normal. decreased breath sounds CARDIOVASCULAR: heart sounds irregular. No edema. ABDOMEN: Soft. Liver and spleen not palpable. No tenderness. No mass palpable. PSYCHIATRY: able to answer simple questions . .investigations: Today Accu-Cheks 124, 166, 157 Assessment and plan: -chronic persistent atrial fibrillation. Rate controlled. Not a candidate for anticoagulant because of falls -Essential hypertension On Zestril, Lopressor -Hyperlipidemia Diet controlled -Diabetes mellitus type 2, on oral hypoglycemic Follow Accu-Cheks -Chronic medical debility PT OT on the case. -gait dysfunction Uses a walker -questionable aspiration with solids liquids. speechtherapy consulted. We'll order MBS. Ordered MBS. Other medications to continue.
[2020-08-01 21:30] LABS: Glucose,Whole Blood 205 mg/dL (75-99)
[2020-08-01] MEDS: lisinopriL 20 MG TAB PO SCH (21:57)
[2020-08-02 07:28] LABS: Glucose,Whole Blood 100 mg/dL (75-99)
[2020-08-02] MEDS: INSULIN ASPART (NovoLOG) 100 UNIT/ML VIAL SQ SCH ×2 (08:50→12:27)
--- NOTE | 2020-08-02 10:30 | ECHOF ---
Referral Reason:afib MEASUREMENTS -------- HEIGHT: 182.9 cm WEIGHT: 72.6 kg BP: 113/71 RVIDd: 3.9 cm (< 3.3) IVSd: 1.4 cm (0.6 - 1.1) LVIDd: 4.2 cm (3.9 - 5.3) LVPWd: 1.4 cm (0.6 - 1.1) IVSs: 2.4 cm LVIDs: 2.7 cm LVPWs: 1.8 cm LA Diam: 4.2 cm (2.7 - 3.8) Ao Diam: 3.5 cm (2.0 - 3.7) AV Cusp: 1.8 cm (1.5 - 2.6) MV EXCURSION: 22.486 mm (> 18.000) MV EF SLOPE: 123 mm/s (70 - 150) EPSS: 0.5 cm RAP: 5.00 mmHg RVSP: 32.20 mmHg FINDINGS -------- Atrial fibrillation. This was a technically adequate study. The left ventricular size is normal. There is moderate concentric left ventricular hypertrophy. O verall left ventricular systolic function is normal with, an EF between 60 - 65 %. The right ventricle is moderately enlarged. The left atrium is mildly dilated. The right atrium is normal in size. Interatrial and interventricular septum intact. There is mild aortic valve sclerosis. Mild mitral regurgitation is present. Mild tricuspid regurgitation present. Right ventricular systolic pressure is normal at < 35 mmHg. The pulmonic valve was not well visualized. The aortic root size is normal. Normal inferior vena cava with normal inspiratory collapse consistent with estimated right atrial pre ssure of 5 mmHg. There is no pericardial effusion. CONCLUSIONS -------- 1. The left ventricular size is normal. 2. There is moderate concentric left ventricular hypertrophy. 3. Overall left ventricular systolic function is normal with, an EF between 60 - 65 %. 4. The right ventricle is moderately enlarged. 5. The left atrium is mildly dilated. 6. There is mild aortic valve sclerosis. 7. Mild mitral regurgitation is present. 8. Mild tricuspid regurgitation present. 9. There is no pericardial effusion. LOCKSTITCH WAISTBAND SETTER: JUNE Helm
[2020-08-02] MEDS: metFORMIN 500 MG TAB PO SCH ×2 (11:19→12:27)
[2020-08-02] MEDS: METOPROLOL TARTRATE 25 MG TAB PO SCH (11:38)
--- NOTE | 2020-08-02 11:50 | FL ---
EXAMINATION TYPE: FL barium swallow w video DATE OF EXAM: 08/02/2020 MODIFIED SWALLOW / DEGLUTITION STUDY CLINICAL HISTORY: Dysphagia. Coughing with eating and drinking. TECHNIQUE: Deglutition study is performed utilizing thin liquid barium, honey and nectar thick liqui d barium, barium thick applesauce, and barium coated cracker. 2 minutes 55 seconds of fluoro time an d 0 images saved to PACS. COMPARISON: None. FINDINGS: The oral and pharyngeal phases show satisfactory initiation and propagation with all modali ties tested. Satisfactory mastication is seen with solid modalities tested. There is penetration whi ch does not initiate a cough reflex with thin liquid barium and nectar thick liquid barium. Patient a ble to cough up penetrated contrast. No aspiration with other modalities. Severe pharyngeal residue w as appreciated. IMPRESSION: Silent penetration with less viscous modalities. Severe pharyngeal residuals. Please refer to speech therapist notes for further details if necessary.
[2020-08-02 12:02] LABS: Glucose,Whole Blood 191 mg/dL (75-99)
[2020-08-02 12:24] VITALS: BP 138/71; PULSE 94; TEMP 97.9
--- NOTE | 2020-08-02 12:39 | DS ---
DISCHARGE SUMMARY DISCHARGE MEDICATIONS: 1. Metformin 500 b.i.d. 2. Lopressor 25 b.i.d. 3. Zestril 10 mg daily. DISCHARGE DIAGNOSES: 1. Uncontrolled diabetes mellitus. 2. Hypertensive urgency. 3. Noncompliance with medications outpatient. 4. Acute metabolic encephalopathy. 5. History of a stroke. 6. History of osteoarthritis. 7. Degenerative disc disease. The patient was admitted. Sugars were under better control. He had atrial fibrillation for which Cardiology did not recommend blood thinners at this point due to falls at home. If he goes to senior living, they said he could take some Eliquis. Will have to see if he agrees to go the senior living. At this point if he does will start him on Eliquis low-dose 2.5 b.i.d., otherwise aspirin 81 mg a day at home. Due to poor ambulation, he will need physical therapy at the senior living that was recommended at this point if he agrees to go. DIET: Regular. AMBULATE: As tolerated. MMROSEL / IJN: [id number] /
== END 2020-08-02 16:10 | DRG 637 ==
LOC: EC 15:59 → 1SOBS 20:06 → 5NMEDONC 07-28 18:05 → OBSVTOIN 07-29 10:39
PROVIDERS: ADMIT Family Medicine; ATTEND Family Medicine
DX: E11.65 Type 2 diabetes mellitus with hyperglycemia (principal); G93.41 Metabolic encephalopathy; I48.21 Permanent atrial fibrillation; I16.0 Hypertensive urgency; E11.40 Type 2 diabetes mellitus with diabetic neuropathy, unspecified; Z20.822 Contact with and (suspected) exposure to COVID-19; I10 Essential (primary) hypertension; T44.7X6A Underdosing of beta-adrenoreceptor antagonists, initial encounter; T46.4X6A Underdosing of angiotensin-converting-enzyme inhibitors, initial encounter; T38.3X6A Underdosing of insulin and oral hypoglycemic [antidiabetic] drugs, initial encounter; Z91.128 Patient's intentional underdosing of medication regimen for other reason; E78.5 Hyperlipidemia, unspecified; R33.9 Retention of urine, unspecified; R29.6 Repeated falls; R32 Unspecified urinary incontinence; I45.10 Unspecified right bundle-branch block; R26.9 Unspecified abnormalities of gait and mobility; M19.90 Unspecified osteoarthritis, unspecified site; Z79.84 Long term (current) use of oral hypoglycemic drugs; Z79.899 Other long term (current) drug therapy; Z87.19 Personal history of other diseases of the digestive system; Z96.643 Presence of artificial hip joint, bilateral; Z98.42 Cataract extraction status, left eye; Z98.41 Cataract extraction status, right eye; Z96.1 Presence of intraocular lens; Z90.79 Acquired absence of other genital organ(s); Z98.818 Other dental procedure status; Z86.73 Personal history of transient ischemic attack (TIA), and cerebral infarction without residual deficits; Z98.890 Other specified postprocedural states; Z82.5 Family history of asthma and other chronic lower respiratory diseases; Z82.49 Family history of ischemic heart disease and other diseases of the circulatory system; Z91.19 Patient's noncompliance with other medical treatment and regimen
CPT/HCPCS: 36415; 51798; 71045; 74230; 80053; 80061; 81003; 83036; 83690; 84443; 85025; 87635; 93005; 93306; 96374; 99285

== ENCOUNTER 2021-01-02 17:57 | Emergency (ER) | payer MEDICARE, BC ==
[2021-01-02 18:13] VITALS: PULSE 98; RESP 16; TEMP 97.7
--- NOTE | 2021-01-02 18:13 | ED ---
General Adult HPI - General Chief complaint: Fall Stated complaint: fall Time Seen by Provider: 01/02/21 17:57 Source: EMS Mode of arrival: EMS Limitations: altered mental status - History of Present Illness Initial comments: 85-year-old male who resides at [facility] presents to the emergency department after he hit his head. Patient was sitting in his wheelchair when he actually fell forward and hit the left side of his head. Staff did help the patient. They recommended a CT of his brain as he is on anticoagulation for A. fib. Patient denies any headaches or visual changes. Denies any other injuries. No other alleviating, precipitating or modifying factors - Related Data Previous Rx's Medication Instructions Recorded Metoprolol Tartrate [Lopressor] 25 mg PO BID 30 Days #60 tab 07/29/20 lisinopriL [Zestril] 10 mg PO DAILY@2100 30 Days #30 tab 07/29/20 metFORMIN HCL [Glucophage] 500 mg PO BID-W/MEALS 30 Days #60 07/29/20 tab Allergies Allergy/AdvReac Type Severity Reaction Status Date / Time No Known Allergies Allergy Verified 07/27/20 16:53 Review of Systems ROS Statement: Those systems with pertinent positive or pertinent negative responses have been documented in the HPI. ROS Other: All systems not noted in ROS Statement are negative. Past Medical History Past Medical History: Atrial Fibrillation, Diabetes Mellitus, Hypertension, Osteoarthritis (OA), Syncope Additional Past Medical History / Comment(s): IDDM type II, neuropathy bilateral feet, arthritis multiple joints. History of Any Multi-Drug Resistant Organisms: None Reported Past Surgical History: Hernia Repair, Orthopedic Surgery Additional Past Surgical History / Comment(s): Bilateral total hip arthroplasty, TURP, umbilical and R inguinal hernia repairs, bilateral cataract removals/lens implants, teeth extraction. Past Anesthesia/Blood Transfusion Reactions: No Reported Reaction Past Psychological History: No Psychological Hx Reported Smoking Status: Never smoker Past Alcohol Use History: None Reported Past Drug Use History: None Reported - Past Family History Mother History Unknown: Yes Additional Family Medical History / Comment(s): Mother at age 70 from unknown cause. Father Family Medical History: Asthma Additional Family Medical History / Comment(s): Father from unknown cause but did have asthma. Sister(s) Family Medical History: Vascular Disorder Additional Family Medical History / Comment(s): He has one sister that from an aneurysm. General Exam Limitations: altered mental status General appearance: alert, in no apparent distress Head exam: Present: other (ecchymosis left forehead) Eye exam: Present: normal appearance, PERRL, EOMI. Absent: scleral icterus, conjunctival injection, periorbital swelling ENT exam: Present: normal exam, mucous membranes moist Neck exam: Present: normal inspection. Absent: tenderness, meningismus, lymphadenopathy Respiratory exam: Present: normal lung sounds bilaterally. Absent: respiratory distress, wheezes, rales, rhonchi, stridor Cardiovascular Exam: Present: regular rate, normal rhythm, normal heart sounds. Absent: systolic murmur, diastolic murmur, rubs, gallop, clicks GI/Abdominal exam: Present: soft, normal bowel sounds. Absent: distended, tenderness, guarding, rebound, rigid Psychiatric exam: Present: normal affect, normal mood Skin exam: Present: warm Course Vital Signs 01/02/21 18:08 Temperature 97.7 F Pulse Rate 98 Respiratory 16 Rate EKG Findings - EKG Comments: EKG Findings:: EKG demonstrates atrial fibrillation with a rate of 96. QRS 146. QTC of 507. No acute ST segment elevations or depressions Medical Decision Making - Medical Decision Making Upon arrival patient is placed into room 23. Thorough history and physical exam is performed. Patient sent over for a CT of his head which demonstrates no acute intracranial process. Patient will be discharged back to his facility at this time. Patient transported by EMS Disposition Clinical Impression: Chronic atrial fibrillation, Concussion, Fall Disposition: HOME SELF-CARE Condition: Stable Instructions (If sedation given, give patient instructions): Fall Prevention for Older Adults (ED) Additional Instructions: Please follow-up with your primary care doctor in 2-4 days. Return to the emergency room for any worsening symptoms Is patient prescribed a controlled substance at d/c from ED?: No Referrals: Paul Damian MD [Primary Care Provider] - 1-2 days Time of Disposition: 19:46
--- NOTE | 2021-01-02 19:29 | CT ---
EXAMINATION TYPE: CT brain refugio ol[facility] con DATE OF EXAM: 01/02/2021 COMPARISON: CT brain 10/19/2017 HISTORY: Fall with Left frontal injury CT DLP: 1578.6 mGycm Automated exposure control for dose reduction was used. Images of the brain obtained without contrast. There is cerebral atrophy. There is no mass effect nor midline shift. There is no sign of intracranial hemorrhage. There is enlargement of the ventricles. Cervical vertebra have normal alignment. Posterior elements are intact. Facet joints are intact. Prev ertebral soft tissues are intact. There is degenerative spur formation in the mid and lower cervical spine. IMPRESSION: Cerebral atrophy and hydrocephalus. No acute intracranial abnormality. No change. Spondylotic changes in the cervical spine. No fracture.
== END 2021-01-02 22:17 | disposition home or self-care (01) ==
LOC: EC 17:57
DX: S06.0X0A Concussion without loss of consciousness, initial encounter (principal); I48.20 Chronic atrial fibrillation, unspecified; E11.9 Type 2 diabetes mellitus without complications; I10 Essential (primary) hypertension; W05.0XXA Fall from non-moving wheelchair, initial encounter; Y92.009 Unspecified place in unspecified non-institutional (private) residence as the place of occurrence of the external cause
CPT/HCPCS: 70450; 72125; 93005; 99284

== ENCOUNTER 2021-01-26 15:10 | Inpatient (IN) | payer MEDICARE, BC ==
[2021-01-26] MEDS ORDERED: PIPERACILLIN-TAZOBACTAM 3.375 GM in SODIUM CHLORIDE 0.9% 100 ML IVPB STA (16:05)
[2021-01-26] MEDS ORDERED: VANCOMYCIN IV PER PHARMACY 1 EACH MISC MISCELLANE PRN (16:05)
[2021-01-26] MEDS ORDERED: VANCOMYCIN 1,500 MG in SODIUM CHLORIDE 0.9% 250 ML IVPB STA (16:10)
[2021-01-26 16:42] LABS: Basophils % (A) 0 %; Eosinophils # (A) 0.4 k/uL (0-0.7); Eosinophils % (A) 4 %; HCT 44.3 % (39.0-53.0); HGB 14.3 gm/dL (13.0-17.5); Lymphocytes # (A) 1.5 k/uL (1.0-4.8); Lymphocytes % (A) 15 %; MCH 29.5 pg (25.0-35.0); MCHC 32.2 g/dL (31.0-37.0); MCV 91.6 fL (80.0-100.0); Mean Platelet Volume 8.3; Monocytes # (A) 0.6 k/uL (0-1.0); Monocytes % (A) 6 %; Neutrophils # (A) 7.4 k/uL (1.3-7.7); Neutrophils % (A) 72 %; Platelet Count 226 k/uL (150-450); RBC 4.84 m/uL (4.30-5.90); RDW 13.9 % (11.5-15.5); WBC 10.2 k/uL (3.8-10.6)
--- NOTE | 2021-01-26 16:43 | ED ---
General Adult HPI - General Chief complaint: Skin/Abscess/Foreign Body Stated complaint: wound infection Time Seen by Provider: 01/26/21 15:17 Source: patient, EMS, RN notes reviewed Mode of arrival: EMS Limitations: no limitations - History of Present Illness Initial comments: 85-year-old male presents emergency Department with chief complaint of wound to his right foot. Patient's unsure how long this is been he states his been getting worse she was referred emergency from for [facility] for worsening symptoms. They noticed increasing size, older and redness. Patient is known diabetic. Patient is unsure present current antibiotics. - Related Data Previous Rx's Medication Instructions Recorded Metoprolol Tartrate [Lopressor] 25 mg PO BID 30 Days #60 tab 07/29/20 lisinopriL [Zestril] 10 mg PO DAILY@2100 30 Days #30 tab 07/29/20 metFORMIN HCL [Glucophage] 500 mg PO BID-W/MEALS 30 Days #60 07/29/20 tab Allergies Allergy/AdvReac Type Severity Reaction Status Date / Time No Known Allergies Allergy Verified 07/27/20 16:53 Review of Systems ROS Statement: Those systems with pertinent positive or pertinent negative responses have been documented in the HPI. ROS Other: All systems not noted in ROS Statement are negative. Past Medical History Past Medical History: Atrial Fibrillation, Diabetes Mellitus, Hypertension, Osteoarthritis (OA), Syncope Additional Past Medical History / Comment(s): IDDM type II, neuropathy bilateral feet, arthritis multiple joints. History of Any Multi-Drug Resistant Organisms: None Reported Past Surgical History: Hernia Repair, Orthopedic Surgery Additional Past Surgical History / Comment(s): Bilateral total hip arthroplasty, TURP, umbilical and R inguinal hernia repairs, bilateral cataract removals/lens implants, teeth extraction. Past Anesthesia/Blood Transfusion Reactions: No Reported Reaction Past Psychological History: No Psychological Hx Reported Smoking Status: Never smoker Past Alcohol Use History: None Reported Past Drug Use History: None Reported - Past Family History Mother History Unknown: Yes Additional Family Medical History / Comment(s): Mother at age 70 from unknown cause. Father Family Medical History: Asthma Additional Family Medical History / Comment(s): Father from unknown cause but did have asthma. Sister(s) Family Medical History: Vascular Disorder Additional Family Medical History / Comment(s): He has one sister that from an aneurysm. General Exam Limitations: no limitations General appearance: alert, in no apparent distress Head exam: Present: atraumatic, normocephalic, normal inspection Eye exam: Present: normal appearance, PERRL, EOMI. Absent: scleral icterus, conjunctival injection, periorbital swelling Respiratory exam: Present: normal lung sounds bilaterally. Absent: respiratory distress, wheezes, rales, rhonchi, stridor Cardiovascular Exam: Present: regular rate, normal rhythm, normal heart sounds. Absent: systolic murmur, diastolic murmur, rubs, gallop, clicks Extremities exam: Present: other (Right foot the portion of the heel there is a large diabetic ulcer noted with follow-up on her, surrounding erythema, swelling noted, there is no crepitus of the leg swelling of the calf region.) Course Vital Signs 01/26/21 15:15 Temperature 97.6 F Pulse Rate 96 Respiratory 18 Rate Blood Pressure 144/82 O2 Sat by Pulse 96 Oximetry Medical Decision Making - Medical Decision Making Patient's x-ray shows evidence of osteomyelitis. I did discuss case with Dr. Damian who accepts admission with consult to Dr. Linares. - Lab Data Result diagrams: 01/26/21 16:37 01/26/21 16:37 Lab Results 01/26/21 01/26/21 01/26/21 Range/Units 16:37 16:37 16:37 WBC 10.2 (3.8-10.6) k/uL RBC 4.84 (4.30-5.90) m/uL Hgb 14.3 (13.0-17.5) gm/dL Hct 44.3 (39.0-53.0) % MCV 91.6 (80.0-100.0) fL MCH 29.5 (25.0-35.0) pg MCHC 32.2 (31.0-37.0) g/dL RDW 13.9 (11.5-15.5) % Plt Count 226 (150-450) k/uL MPV 8.3 Neutrophils % 72 % Lymphocytes % 15 % Monocytes % 6 % Eosinophils % 4 % Basophils % 0 % Neutrophils # 7.4 (1.3-7.7) k/uL Lymphocytes # 1.5 (1.0-4.8) k/uL Monocytes # 0.6 (0-1.0) k/uL Eosinophils # 0.4 (0-0.7) k/uL Basophils # 0.0 (0-0.2) k/uL Sodium 139 (137-145) mmol/L Potassium 4.2 (3.5-5.1) mmol/L Chloride 107 (98-107) mmol/L Carbon Dioxide 22 (22-30) mmol/L Anion Gap 10 mmol/L BUN 15 (9-20) mg/dL Creatinine 0.58 L (0.66-1.25) mg/dL Est GFR (CKD-EPI)AfAm >90 (>60 ml/min/1.73 sqM) Est GFR (CKD-EPI)NonAf >90 (>60 ml/min/1.73 sqM) Glucose 104 H (74-99) mg/dL Plasma Lactic Acid Justino 1.1 (0.7-2.0) mmol/L Calcium 9.0 (8.4-10.2) mg/dL Total Bilirubin 0.6 (0.2-1.3) mg/dL AST 20 (17-59) U/L ALT 16 (4-49) U/L Alkaline Phosphatase 78 (38-126) U/L C-Reactive Protein 5.8 H (<1.0) mg/dL Total Protein 7.1 (6.3-8.2) g/dL Albumin 3.6 (3.5-5.0) g/dL Disposition Clinical Impression: Foot osteomyelitis, right, Diabetic foot ulcer Disposition: ADMITTED IP TO THIS [facility] Condition: Stable Referrals: Ramos Suero MD [STAFF PHYSICIAN] - 1-2 days
--- NOTE | 2021-01-26 17:03 | XR ---
EXAMINATION TYPE: XR foot complete RT DATE OF EXAM: 01/26/2021 CLINICAL HISTORY: heel infection. TECHNIQUE: Frontal, lateral and oblique images of the right foot are obtained. COMPARISON: None FINDINGS: There is no acute fracture or dislocation. There is significant soft tissue ulceration of t he heel, likely near to or at the level of the bone. There is irregular periosteal reaction at the ca lcaneus. There is marked dorsal soft tissue swelling. Flexion deformities of the toes. Degenerative c hanges of the midfoot and hindfoot. Calcified vascular atherosclerotic disease. IMPRESSION: 1. Marked soft tissue ulceration of the heel. There is associated irregular periosteal reaction of th e calcaneus which may represent osteomyelitis. 2. Marked dorsal soft tissue swelling of the forefoot.
[2021-01-26 17:21] LABS: ALT 16 U/L (4-49); AST 20 U/L (17-59); African American GFR (CKD) >90 (>60 ml/min/1.73 sqM); Albumin 3.6 g/dL (3.5-5.0); Alkaline Phosphatase 78 U/L (38-126); Anion Gap 10 mmol/L; Blood Urea Nitrogen 15 mg/dL (9-20); C Reactive Protein 5.8 mg/dL (<1.0); Carbon Dioxide 22 mmol/L (22-30); Chloride 107 mmol/L (98-107); Glucose 104 mg/dL (74-99); Non-African American GFR(CKD) >90 (>60 ml/min/1.73 sqM); Potassium 4.2 mmol/L (3.5-5.1); Sodium 139 mmol/L (137-145); Total Bilirubin 0.6 mg/dL (0.2-1.3); Total Protein 7.1 g/dL (6.3-8.2)
[2021-01-26] MEDS ORDERED: ACETAMINOPHEN TAB 325 MG TAB PO STA (17:53)
[2021-01-26] MEDS ORDERED: NALOXONE 0.4 MG/ML 1 ML VIAL IV PRN (17:55)
[2021-01-26] MEDS: SODIUM CHLORIDE 0.9% 1,000 ML IV SCH (21:49)
[2021-01-27] MEDS: PIPERACILLIN-TAZOBACTAM 3.375 GM in SODIUM CHLORIDE 0.9% 100 ML IVPB SCH ×3 (01:02→17:44)
[2021-01-27] MEDS: VANCOMYCIN 1,500 MG in SODIUM CHLORIDE 0.9% 250 ML IVPB SCH ×2 (05:33→18:03)
[2021-01-27 06:56] LABS: Glucose,Whole Blood 76 mg/dL (75-99)
[2021-01-27] MEDS ORDERED: MAGNESIUM HYDROXIDE 2,400 MG/10 ML CUP PO PRN (10:45)
[2021-01-27 11:43] LABS: Glucose,Whole Blood 117 mg/dL (75-99)
[2021-01-27] MEDS: INSULIN ASPART (NovoLOG) 100 UNIT/ML VIAL SQ SCH ×3 (11:47→20:22)
[2021-01-27 14:33] VITALS: BMI 27.1
[2021-01-27 16:25] LABS: Glucose,Whole Blood 181 mg/dL (75-99)
[2021-01-27] MEDS ORDERED: NON FORMULARY DRUG (Liquacel 30 ML) PO SCH (17:00)
--- NOTE | 2021-01-27 17:21 | HP ---
HISTORY AND PHYSICAL This is an 85-year-old white male who came in, was admitted to the hospital for severe osteomyelitis of the right foot, unsure of how long it has been. It has been getting worse. He was sent here from [facility] due to osteomyelitis for workup. History of hypertension, recent COVID pneumonia, some memory loss. Home medicines are metoprolol 25 b.i.d., Zestril 10 daily, metformin 500 b.i.d. ALLERGIES: NEGATIVE. REVIEW OF SYMPTOMS: Fourteen-point review of systems otherwise negative. PAST MEDICAL HISTORY: Atrial fibrillation, diabetes mellitus, hypertension, osteoarthritis, syncope. FAMILY HISTORY: Mother unknown. Father asthma. Sister vascular disorder. PHYSICAL EXAMINATION: Temperature 97.5, pulse 80 to 95, respiratory rate 16 to 18, blood pressure 140s over 80s. O2 96. CARDIOVASCULAR: S1, S2. LUNGS: Clear. GI soft. NEUROLOGIC: Alert and oriented x2. He has 4/5 strength in his 4 extremities. EXTREMITIES: Right foot portion of the heel has a large decubitus ulcer, surrounding erythema. I ordered cultures drawn, IV antibiotics started. Blood cultures drawn. Treat for osteomyelitis and the right diabetic foot ulcer. Continue current treatment. Prognosis guarded. MMODL / IJN: [id number] /
[2021-01-27] MEDS: metFORMIN 500 MG TAB PO SCH (17:38)
[2021-01-27] MEDS: APIXABAN 2.5 MG TABLET PO SCH (17:38)
[2021-01-27] MEDS: METOPROLOL TARTRATE 25 MG TAB PO SCH (17:38)
--- NOTE | 2021-01-27 18:18 | P.GSCN ---
History of Present Illness History of present illness: 85-year-old gentleman patient has been transferred from [facility] with a diagnosis of osteo-mellitus of the right heel patient has a scab on his right heel with some fluctuation noted drainage noted. Patient is a poor historian duration of the wound is not known x-ray of the right foot shows there is a soft tissue ulceration and possible osteo-of the right calcaneus Neck examination neck is supple no bruit appreciated Chest is clear first and second sound normal patient has history of A. fib Abdomen soft nontender Vascular femorals are 1+ bilateral right heel has a eschar formation noted with some fluctuation x-ray shows possible osteo-of the right calcaneus Plan is wound debridement and Culture from the calcaneus bone patient is under care of infectious disease with IV antibiotic we will arrange for surgery risk and complication discussed Past Medical History Past Medical History: Atrial Fibrillation, Diabetes Mellitus, Hypertension, Osteoarthritis (OA), Syncope Additional Past Medical History / Comment(s): IDDM type II, neuropathy bilateral feet, arthritis multiple joints. History of Any Multi-Drug Resistant Organisms: None Reported Past Surgical History: Hernia Repair, Orthopedic Surgery Additional Past Surgical History / Comment(s): Bilateral total hip arthroplasty, TURP, umbilical and R inguinal hernia repairs, bilateral cataract removals/lens implants, teeth extraction. Past Anesthesia/Blood Transfusion Reactions: No Reported Reaction Past Psychological History: No Psychological Hx Reported Additional Psychological History / Comment(s): Pt resides at [facility] Smoking Status: Never smoker Past Alcohol Use History: None Reported Additional Past Alcohol Use History / Comment(s): Patient is a lifelong nonsmoker- states he smoked cigars for a short time. He denies any alcohol use. Past Drug Use History: None Reported - Past Family History Mother History Unknown: Yes Additional Family Medical History / Comment(s): Mother at age 70 from u nknown cause. Father Family Medical History: Asthma Additional Family Medical History / Comment(s): Father from unknown cause but did have asthma. Sister(s) Family Medical History: Vascular Disorder Additional Family Medical History / Comment(s): He has one sister that from an aneurysm. Medications and Allergies Home Medications Medication Instructions Recorded Confirmed Type Acetaminophen [Tylenol] 650 mg PO Q4H PRN 01/26/21 01/26/21 History Apixaban [Eliquis] 2.5 mg PO BID@0800,1700 01/26/21 01/26/21 History Budesonide/Formoterol Fumarate 2 puff INHALATION RT-BID 01/26/21 01/26/21 History [Symbicort 160-4.5 Mcg Inhaler] Collagenase [Santyl] 1 applic TOPICAL DAILY 01/26/21 01/26/21 History Dakins Solution 0.25% 1 applic TOPICAL DAILY 01/26/21 01/26/21 History Empagliflozin [Jardiance] 25 mg PO DAILY@0800 01/26/21 01/26/21 History HYDROcodone/APAP 5-325MG [[place] 1 tab PO Q12H PRN 01/26/21 01/26/21 History 5-325] INSULIN ASPART (NovoLOG) [NovoLOG See Protocol SQ ACHS 01/26/21 01/26/21 History (formulary)] Ipratropium-Albuterol Nebulize 3 ml INHALATION RT-Q6H PRN 01/26/21 01/26/21 History [Duoneb 0.5 mg-3 mg/3 ml Soln] Lidocaine 5% Cream 1 mm TOPICAL DAILY PRN 01/26/21 01/26/21 History Liquacel 30 ml PO BID@0800,1700 01/26/21 01/26/21 History Magnesium Hydroxide [Milk of 7,200 mg PO DAILY PRN 01/26/21 01/26/21 History Magnesia Concentrate] Metoprolol Tartrate [Lopressor] 25 mg PO BID@0800,1700 01/26/21 01/26/21 History Na Phos,M-B/Na Phos,Di-Ba [Fleet 133 ml RECTAL DAILY PRN 01/26/21 01/26/21 History Adult] bisacodyL 10 mg RECTAL DAILY PRN 01/26/21 01/26/21 History guaiFENesin [Mucinex] 600 mg PO BID@0800,2100 01/26/21 01/26/21 History lisinopriL [Zestril] 10 mg PO HS@2100 01/26/21 01/26/21 History metFORMIN HCL [Glucophage] 500 mg PO BID@0800,1700 01/26/21 01/26/21 History Allergies Allergy/AdvReac Type Severity Reaction Status Date / Time No Known Allergies Allergy Verified 01/26/21 18:21 Surgical - Exam Vital Signs Temp Pulse Resp BP Pulse Ox 97.6 F 96 18 144/82 96 01/26/21 15:15 01/26/21 15:15 01/26/21 15:15 01/26/21 15:15 01/26/21 15:15 Results - Labs 01/26/21 16:37 01/26/21 16:37 Abnormal Lab Results - Last 24 Hours (Table) 01/27/21 01/27/21 Range/Units 11:42 16:24 POC Glucose (mg/dL) 117 H 181 H (75-99) mg/dL
[2021-01-27] MEDS: SYMBICORT 160-4.5 MCG INHALER INHALATION SCH (19:37)
[2021-01-27] MEDS: IPRATROPIUM-ALBUTEROL 3 ML NEB INHALATION PRN (19:37)
[2021-01-27 20:10] LABS: Glucose,Whole Blood 157 mg/dL (75-99)
[2021-01-27] MEDS: guaiFENesin 600 MG TABLET.ER PO SCH (20:17)
[2021-01-27] MEDS: lisinopriL 10 MG TAB PO SCH (20:17)
[2021-01-27] MEDS: SODIUM CHLORIDE 0.9% 1,000 ML IV SCH ×2 (20:18→20:19)
[2021-01-28] MEDS: PIPERACILLIN-TAZOBACTAM 3.375 GM in SODIUM CHLORIDE 0.9% 100 ML IVPB SCH ×2 (00:39→07:23)
[2021-01-28] MEDS ORDERED: VANCOMYCIN TROUGH DUE 1 EACH MISC MISCELLANE ONE (05:00)
[2021-01-28 05:09] LABS: African American GFR (CKD) >90 (>60 ml/min/1.73 sqM); Non-African American GFR(CKD) >90 (>60 ml/min/1.73 sqM)
[2021-01-28] MEDS: VANCOMYCIN 1,500 MG in SODIUM CHLORIDE 0.9% 250 ML IVPB SCH (05:39)
[2021-01-28 06:58] LABS: Glucose,Whole Blood 93 mg/dL (75-99)
[2021-01-28] MEDS: APIXABAN 2.5 MG TABLET PO SCH ×2 (07:23→16:53)
[2021-01-28] MEDS: guaiFENesin 600 MG TABLET.ER PO SCH ×2 (07:23→21:22)
[2021-01-28] MEDS: METOPROLOL TARTRATE 25 MG TAB PO SCH ×2 (07:23→17:19)
[2021-01-28] MEDS: metFORMIN 500 MG TAB PO SCH ×2 (07:23→17:19)
[2021-01-28] MEDS: INSULIN ASPART (NovoLOG) 100 UNIT/ML VIAL SQ SCH ×4 (07:37→21:22)
[2021-01-28] MEDS: SYMBICORT 160-4.5 MCG INHALER INHALATION SCH ×2 (07:52→19:29)
--- NOTE | 2021-01-28 08:48 | P.CONS ---
History of Present Illness - Reason for Consult Consult date: 01/27/21 right heel pressure ulcer Requesting physician: aPul Damian - Chief Complaint right heel ulcer x weeks - History of Present Illness istory of present illness : Patient is 85-year-old male was brought into the ER yesterday afternoon for evaluation of a wound to the right heel patient apparently is a resident of a local assisted and did have worsening of his wound evaluated for hormone as the patient elevated good historian patient on presentation to the hospital was afebrile and no fever has been recorded subsequently patient did have a normal white count creatinine was normal hanks PCR was negative blood culture has been obtained which are currently pending patient did have x-rays of the right foot which shows marked soft tissue ulceration of the heel assisted irregular periosteal reaction of the calcaneus which may represent osteomyelitis patient was admitted to the hospital patient was started on Zosyn and received a dose of vancomycin infectious disease was consulted for further management of antibiotic therapy most information has been obtained from review the chart and the patient himself was unable to provide any history Review of system: Positive point has been mentioned in HPI complete review could not be obtained because of underlying mental status Past medical history : Reviewed, documented below Past surgical history : Reviewed, documented below Social history: Reviewed, documented below Medications: Reviewed, as documented below EXAMINATION: Vital sigans= Reviewed and documented below GENERAL DESCRIPTION elderly male lying in bed, no distress. No tachypnea or accessory muscle of respiration use. HEENT: Shows Pallor , no scleral icterus. Oral mucous membrane is dry. NECK: Trachea central, no thyromegaly. LUNGS: Unlabored breathing. Clear to auscultation anteriorly. No wheeze or crackle. HEART: S1, S2, regular rate and rhythm. ABDOMEN: Soft, no tenderness , guarding or rigidity EXTREMITIES: Right heel with unstageable pressure ulcer with necrotic base with surrounding erythema. SKIN: No rash, no masses palpable. NEUROLOGICAL: The patient is awake, however pleasantly confused and orientation could not be determined LABS AND RADIOLOGY: Reviewed results see below Assessment : Patient with unstageable right heel pressure ulcer in the session with evidence of osteomyelitis on the x-ray with a chronic wound and a assisted resident will need to cover for the polymicrobial dawn usually associated with this infection Plan: 1-vascular surgeon evaluation for debridement of the wound and deep c ulture that will guide further antibiotic therapy 2-patient to continue with Zosyn 3.375 g every 8 hours 3-heel protector We will follow on clinical condition and cultures to further adjust medication if needed Thank you for this consultation we will follow the patient along with you Past Medical History Past Medical History: Atrial Fibrillation, Diabetes Mellitus, Hypertension, Osteoarthritis (OA), Syncope Additional Past Medical History / Comment(s): IDDM type II, neuropathy bilateral feet, arthritis multiple joints. History of Any Multi-Drug Resistant Organisms: None Reported Past Surgical History: Hernia Repair, Orthopedic Surgery Additional Past Surgical History / Comment(s): Bilateral total hip arthroplasty, TURP, umbilical and R inguinal hernia repairs, bilateral cataract removals/lens implants, teeth extraction. Past Anesthesia/Blood Transfusion Reactions: No Reported Reaction Past Psychological History: No Psychological Hx Reported Additional Psychological History / Comment(s): Pt resides at [facility] Smoking Status: Never smoker Past Alcohol Use History: None Reported Additional Past Alcohol Use History / Comment(s): Patient is a lifelong nonsmoker- states he smoked cigars for a short time. He denies any alcohol use. Past Drug Use History: None Reported - Past Family History Mother History Unknown: Yes Additional Family Medical History / Comment(s): Mother at age 70 from unknown cause. Father Family Medical History: Asthma Additional Family Medical History / Comment(s): Father from unknown cause but did have asthma. Sister(s) Family Medical History: Vascular Disorder Additional Family Medical History / Comment(s): He has one sister that from an aneurysm. Medications and Allergies Home Medications Medication Instructions Recorded Confirmed Type Acetaminophen [Tylenol] 650 mg PO Q4H PRN 01/26/21 01/26/21 History Apixaban [Eliquis] 2.5 mg PO BID@0800,1700 01/26/21 01/26/21 History Budesonide/Formoterol Fumarate 2 puff INHALATION RT-BID 01/26/21 01/26/21 History [Symbicort 160-4.5 Mcg Inhaler] Collagenase [Santyl] 1 applic TOPICAL DAILY 01/26/21 01/26/21 History Dakins Solution 0.25% 1 applic TOPICAL DAILY 01/26/21 01/26/21 History Empagliflozin [Jardiance] 25 mg PO DAILY@0800 01/26/21 01/26/21 History HYDROcodone/APAP 5-325MG [[place] 1 tab PO Q12H PRN 01/26/21 01/26/21 History 5-325] INSULIN ASPART (NovoLOG) [NovoLOG See Protocol SQ ACHS 01/26/21 01/26/21 History (formulary)] Ipratropium-Albuterol Nebulize 3 ml INHALATION RT-Q6H PRN 01/26/21 01/26/21 History [Duoneb 0.5 mg-3 mg/3 ml Soln] Lidocaine 5% Cream 1 mm TOPICAL DAILY PRN 01/26/21 01/26/21 History Liquacel 30 ml PO BID@0800,1700 01/26/21 01/26/21 History Magnesium Hydroxide [Milk of 7,200 mg PO DAILY PRN 01/26/21 01/26/21 History Magnesia Concentrate] Metoprolol Tartrate [Lopressor] 25 mg PO BID@0800,1700 01/26/21 01/26/21 History Na Phos,M-B/Na Phos,Di-Ba [Fleet 133 ml RECTAL DAILY PRN 01/26/21 01/26/21 History Adult] bisacodyL 10 mg RECTAL DAILY PRN 01/26/21 01/26/21 History guaiFENesin [Mucinex] 600 mg PO BID@0800,2100 01/26/21 01/26/21 History lisinopriL [Zestril] 10 mg PO HS@2100 01/26/21 01/26/21 History metFORMIN HCL [Glucophage] 500 mg PO BID@0800,1700 01/26/21 01/26/21 History Allergies Allergy/AdvReac Type Severity Reaction Status Date / Time No Known Allergies Allergy Verified 01/26/21 18:21 Physical Exam Vitals: Vital Signs Temp Pulse Pulse Resp BP BP Pulse Ox 01/27/21 08:00 97.6 F 98 16 160/85 99 01/27/21 07:45 98 01/27/21 00:47 77 18 01/27/21 00:14 97.9 F 77 18 166/95 98 01/26/21 18:21 98 F 80 18 134/76 98 01/26/21 15:15 97.6 F 96 18 144/82 96 Intake and Output 01/26/21 01/27/21 01/27/21 22:59 06:59 14:59 Intake Total 236 Output Total 540 Balance -540 236 Intake: Oral 236 Output: Urine 540 Other: Voiding Method Urinal Urinal # Voids 1 # Bowel Movements 0 Weight 90.718 kg 90.718 kg Results CBC & Chem 7: 01/26/21 16:37 01/28/21 04:44 Labs: Abnormal Lab Results - Last 24 Hours (Table) 01/26/21 Range/Units 16:37 Creatinine 0.58 L (0.66-1.25) mg/dL Glucose 104 H (74-99) mg/dL C-Reactive Protein 5.8 H (<1.0) mg/dL
[2021-01-28] MEDS: NON FORMULARY DRUG (Empagliflozin [Jardiance] 25 MG Tablet) PO SCH (10:09)
[2021-01-28 11:10] LABS: Glucose,Whole Blood 110 mg/dL (75-99)
[2021-01-28 16:20] LABS: Glucose,Whole Blood 257 mg/dL (75-99)
[2021-01-28] MEDS: SODIUM CHLORIDE 0.9% 1,000 ML IV SCH (16:59)
[2021-01-28] MEDS: VANCOMYCIN 1,750 MG in SODIUM CHLORIDE 0.9% 500 ML 500 ML IVPB SCH (17:29)
--- NOTE | 2021-01-28 17:55 | PN ---
PROGRESS NOTE DATE OF SERVICE: 01/28/2021 REASON FOR FOLLOWUP: Right heel infected pressure ulcer, unstageable. INTERVAL HISTORY: The patient is afebrile. The patient is currently breathing comfortably on room air. He is hemodynamically stable. Not a very good historian. No vomiting, diarrhea or any other changes reported by the nursing staff. PHYSICAL EXAMINATION: Blood pressure is 129/72 with a pulse of 81, temperature 97.8. He is 98% on room air. General description is an elderly male lying in bed in no distress. Respiratory system: Unlabored breathing, clear to auscultation anteriorly. Heart S1, S2. Regular rate and rhythm. Abdomen soft, no tenderness. Right heel with necrotic changes and surrounding redness. Minimal drainage. LABS: Blood culture has been negative. Creatinine is 0.62. Vancomycin trough was 12.2. DIAGNOSTIC IMPRESSION AND PLAN: Patient with right heel infected pressure ulcer, waiting for surgical debridement. Zosyn was switched over to Unasyn to decrease the risk of nephrotoxicity with vancomycin use. Waiting for surgical debridement and deep cultures. Continue supportive care. MMODL / IJN: [id number] /
--- NOTE | 2021-01-28 18:25 | PN ---
PROGRESS NOTE 85-year-old white male came in from [facility] due to osteomyelitis of the right heel. He has a huge black eschar on the bottom of the foot. He has recently went there after getting worsening dementia and confusion after COVID. Chest is clear. Cardiovascular S1, S2. Abdomen is soft. Integument: Large black calcaneal eschar about 2 inches x 2 inches. PLAN: Broad-spectrum antibiotics, wound debridement by vascular surgery, wait for current treatment broad-spectrum antibiotics. Check for atrial fibrillation rapid ventricular response. MMODL / IJN: [id number] /
[2021-01-28] MEDS: AMPICILLIN-SULBACTAM 3 GM in SODIUM CHLORIDE 0.9% 100 ML IVPB SCH ×2 (19:12→23:25)
[2021-01-28 21:03] LABS: Glucose,Whole Blood 175 mg/dL (75-99)
[2021-01-28] MEDS: lisinopriL 10 MG TAB PO SCH (21:22)
[2021-01-29] MEDS: SODIUM CHLORIDE 0.9% 1,000 ML IV SCH ×2 (01:57→16:55)
[2021-01-29] MEDS: VANCOMYCIN 1,750 MG in SODIUM CHLORIDE 0.9% 500 ML 500 ML IVPB SCH ×2 (05:26→17:15)
[2021-01-29] MEDS: AMPICILLIN-SULBACTAM 3 GM in SODIUM CHLORIDE 0.9% 100 ML IVPB SCH ×3 (05:27→17:17)
[2021-01-29 07:11] LABS: Glucose,Whole Blood 198 mg/dL (75-99)
[2021-01-29] MEDS: SYMBICORT 160-4.5 MCG INHALER INHALATION SCH ×2 (08:23→19:45)
[2021-01-29 08:39] LABS: African American GFR (CKD) >90 (>60 ml/min/1.73 sqM); Non-African American GFR(CKD) 89 (>60 ml/min/1.73 sqM)
[2021-01-29] MEDS: METOPROLOL TARTRATE 25 MG TAB PO SCH ×2 (09:45→17:15)
[2021-01-29] MEDS: APIXABAN 2.5 MG TABLET PO SCH ×2 (09:45→17:15)
[2021-01-29] MEDS: INSULIN ASPART (NovoLOG) 100 UNIT/ML VIAL SQ SCH ×4 (09:45→21:02)
[2021-01-29] MEDS: NON FORMULARY DRUG (Empagliflozin [Jardiance] 25 MG Tablet) PO SCH (10:12)
[2021-01-29] MEDS: guaiFENesin 600 MG TABLET.ER PO SCH ×2 (10:13→21:02)
[2021-01-29] MEDS: metFORMIN 500 MG TAB PO SCH ×2 (10:13→17:15)
[2021-01-29 11:29] LABS: Glucose,Whole Blood 106 mg/dL (75-99)
[2021-01-29] MEDS ORDERED: PROPOFOL 10 MG/ML 20 ML VIAL IV ONE (13:20)
[2021-01-29] MEDS ORDERED: .fentaNYL (PF) 50 MCG/ML AMP ONE (13:20)
[2021-01-29] MEDS ORDERED: IV FLUID CONTINUATION 1,000 ML IV ONE (13:25)
[2021-01-29] MEDS ORDERED: LIDOCAINE 1% INJ 10MG/ML (20 ML MDV) SQ ONE ×2 (13:40)
--- NOTE | 2021-01-29 15:10 | OP ---
OPERATIVE REPORT PREOPERATIVE DIAGNOSIS: Infected chronic wound with possible osteomyelitis, right heel. Measurement is 8 x 9 cm. POSTOPERATIVE DIAGNOSIS: Infected chronic wound with possible osteomyelitis, right heel. Measurement is 8 x 9 x 1 cm. This patient has a right heel wound which was infected and there was an eschar formation noted on the wound site. Patient was brought to the operating room. Right foot was prepped and draped in the usual sterile manner under IV sedation and local anesthesia using 1% lidocaine. Using a knife, we excised the eschar along with down to subcutaneous tissue and fat and all the devitalized tissue was excised down to the calcaneus bone which was exposed. We took some punch biopsy from the calcaneus bone which was sent for culture and devitalize tissues was also sent for culture. Bleeding points were controlled and the wound was irrigated with saline and Medihoney gel was applied to the wound. Dressing applied. Patient transferred to the recovery room in satisfactory condition. Prognosis is guarded. MMODL / IJN: [id number] /
[2021-01-29 16:20] LABS: Glucose,Whole Blood 93 mg/dL (75-99)
--- NOTE | 2021-01-29 19:35 | PN ---
PROGRESS NOTE DATE OF SERVICE: 01/29/2021 REASON FOR FOLLOWUP: Right heel infected pressure ulcer with underlying osteomyelitis. INTERVAL HISTORY: Patient is afebrile. The patient is currently breathing comfortably. The patient is status post debridement of the right heel wound and deep cultures are currently pending. Patient hemodynamically stable, tolerated the procedure. No abdominal pain or diarrhea. PHYSICAL EXAMINATION: Blood pressure 140/81 with a pulse of 84, temperature 98.1. He is 96% on room air. General description is an elderly male lying in bed in no distress. Respiratory system: Unlabored breathing, clear to auscultation anteriorly. Heart S1, S2. Regular rate and rhythm. Abdomen soft, no tenderness. The right heel is currently dressed. No obvious drainage on the dressing. LABS: Creatinine 0.63. Cultures are currently pending. DIAGNOSTIC IMPRESSION AND PLAN: Patient with right heel infected pressure ulcer status post debridement concerning for acute osteomyelitis. Cultures are currently pending. Patient is covered with Unasyn and vancomycin with antibiotic adjusted further based on culture report. Family at the bedside. They had multiple questions. Those were answered in layman's terms. MMODL / IJN: [id number] /
[2021-01-29 19:59] LABS: Glucose,Whole Blood 137 mg/dL (75-99)
[2021-01-29] MEDS: lisinopriL 10 MG TAB PO SCH (21:02)
--- NOTE | 2021-01-29 22:37 | PN ---
PROGRESS NOTE Patient went and had decubitus ulcer debrided today. Waiting for cultures. Continue on broad-spectrum antibiotics. CARDIOVASCULAR: S1, S2. LUNGS: Clear. GI: Soft. HEMATOLOGY: Negative Homans. Heel on the right foot is debrided. Right heel infected pressure ulcer, status post debridement. Osteomyelitis of the foot. Continue with Unasyn and vancomycin. Family at the bedside. Multiple questions. Prognosis guarded. Will need a boot for long-term care to prevent pressure on the heel. MMODL / IJN: [id number] /
[2021-01-30] MEDS: AMPICILLIN-SULBACTAM 3 GM in SODIUM CHLORIDE 0.9% 100 ML IVPB SCH ×4 (00:58→17:07)
[2021-01-30] MEDS: SODIUM CHLORIDE 0.9% 1,000 ML IV SCH ×2 (03:23→17:07)
[2021-01-30] MEDS ORDERED: VANCOMYCIN TROUGH DUE 1 EACH MISC MISCELLANE ONE ×2 (04:00→16:00)
[2021-01-30] MEDS: VANCOMYCIN 1,750 MG in SODIUM CHLORIDE 0.9% 500 ML 500 ML IVPB SCH ×2 (05:02→17:10)
[2021-01-30 05:11] LABS: African American GFR (CKD) >90 (>60 ml/min/1.73 sqM); Non-African American GFR(CKD) >90 (>60 ml/min/1.73 sqM)
[2021-01-30 06:51] LABS: Glucose,Whole Blood 91 mg/dL (75-99)
[2021-01-30] MEDS: INSULIN ASPART (NovoLOG) 100 UNIT/ML VIAL SQ SCH ×4 (07:15→20:43)
[2021-01-30] MEDS: SYMBICORT 160-4.5 MCG INHALER INHALATION SCH ×2 (07:28→21:05)
[2021-01-30] MEDS: guaiFENesin 600 MG TABLET.ER PO SCH ×2 (07:34→20:43)
[2021-01-30] MEDS: APIXABAN 2.5 MG TABLET PO SCH ×2 (07:34→16:56)
[2021-01-30] MEDS: METOPROLOL TARTRATE 25 MG TAB PO SCH ×2 (07:34→16:56)
[2021-01-30] MEDS: metFORMIN 500 MG TAB PO SCH ×2 (07:34→16:56)
[2021-01-30] MEDS: NON FORMULARY DRUG (Empagliflozin [Jardiance] 25 MG Tablet) PO SCH (07:35)
[2021-01-30 11:37] LABS: Glucose,Whole Blood 136 mg/dL (75-99)
[2021-01-30] MEDS: ACETAMINOPHEN TAB 325 MG TAB PO PRN (11:45)
[2021-01-30 16:29] LABS: Glucose,Whole Blood 168 mg/dL (75-99)
--- NOTE | 2021-01-30 16:54 | PN ---
PROGRESS NOTE DATE OF SERVICE: 01/30/2021 REASON FOR FOLLOWUP: Right heel pressure ulcer with underlying osteomyelitis. INTERVAL HISTORY: Patient is afebrile. The patient is currently breathing comfortably on room air. No chest pain or cough. No abdominal pain. No worsening pain to the right heel. PHYSICAL EXAMINATION: Blood pressure 120/71 with a pulse of 76, temperature 97.8. He is 96% on room air. General description is an elderly male lying in bed in no distress. Respiratory system: Unlabored breathing, decreased breath sounds in the base. No wheeze. Heart S1, S2. Regular rate and rhythm. Abdomen soft, no tenderness. Right heel is currently dressed. No obvious drainage on the dressing. LABS: Creatinine 0.53. DIAGNOSTIC IMPRESSION AND PLAN: Patient with infected right heel pressure ulcer status post debridement. Deep cultures are currently pending. Patient is covered with vancomycin, Unasyn. Discharge antibiotic on the basis of culture report. Continue supportive care. MMODL / IJN: [id number] /
[2021-01-30] MEDS: HYDROcodone/APAP 5-325MG 1 EACH TAB PO PRN ×2 (18:17→21:01)
[2021-01-30 20:38] LABS: Glucose,Whole Blood 138 mg/dL (75-99)
[2021-01-30] MEDS: lisinopriL 10 MG TAB PO SCH (20:43)
--- NOTE | 2021-01-30 21:45 | PN ---
PROGRESS NOTE Admitted with right heel pressure ulcer with underlying osteomyelitis. The eschar was removed. He is comfortable on room air. He is eating food. He is having no chest pain or shortness of breath. Blood pressure 120s over 70s, pulse 70s, temp 97.8, 96% on room air. Lungs are clear. Cardiovascular S1, S2. Right heel is currently dressed. No obvious drainage. Creatinine 0.53. ASSESSMENT: Right heel pressure ulcer, status post debridement, deep cultures pending. Continue vancomycin, Unasyn until further discharge antibiotics can be done. Supportive care. Discussed wearing a boot to keep pressure off the wound with family. MMODL / IJN: [id number] /
[2021-01-31] MEDS: AMPICILLIN-SULBACTAM 3 GM in SODIUM CHLORIDE 0.9% 100 ML IVPB SCH ×5 (00:44→23:39)
[2021-01-31] MEDS: VANCOMYCIN 1,750 MG in SODIUM CHLORIDE 0.9% 500 ML 500 ML IVPB SCH ×2 (05:07→16:04)
[2021-01-31 06:50] LABS: African American GFR (CKD) >90 (>60 ml/min/1.73 sqM); Non-African American GFR(CKD) >90 (>60 ml/min/1.73 sqM)
[2021-01-31 07:06] LABS: Glucose,Whole Blood 98 mg/dL (75-99)
[2021-01-31] MEDS: INSULIN ASPART (NovoLOG) 100 UNIT/ML VIAL SQ SCH ×4 (07:43→20:21)
[2021-01-31] MEDS: NON FORMULARY DRUG (Empagliflozin [Jardiance] 25 MG Tablet) PO SCH (07:44)
[2021-01-31] MEDS: guaiFENesin 600 MG TABLET.ER PO SCH ×2 (07:55→20:19)
[2021-01-31] MEDS: SODIUM CHLORIDE 0.9% 1,000 ML IV SCH ×2 (07:55→16:04)
[2021-01-31] MEDS: METOPROLOL TARTRATE 25 MG TAB PO SCH ×2 (07:55→16:49)
[2021-01-31] MEDS: APIXABAN 2.5 MG TABLET PO SCH ×2 (07:55→16:49)
[2021-01-31] MEDS: metFORMIN 500 MG TAB PO SCH ×2 (07:55→16:49)
[2021-01-31] MEDS: SYMBICORT 160-4.5 MCG INHALER INHALATION SCH ×2 (07:57→21:16)
[2021-01-31 08:50] LABS: Basophils # (A) 0.03 X 10*3/uL (0.00-0.10); Basophils % (A) 0.3 %; Eosinophils # (A) 0.59 X 10*3/uL (0.04-0.35); Eosinophils % (A) 6.2 %; HCT 39.7 % (39.6-50.0); HGB 12.4 g/dL (13.0-17.0); Lymphocytes # (A) 1.33 X 10*3/uL (0.90-5.00); MCH 28.1 pg (27.0-32.0); MCHC 31.2 g/dL (32.0-37.0); MCV 89.8 fL (80.0-97.0); Mean Platelet Volume 11.4 fL (9.5-12.2); Monocytes # (A) 0.78 X 10*3/uL (0.20-1.00); Monocytes % (A) 8.2 %; Neutrophils # (A) 6.72 X 10*3/uL (1.80-7.70); Platelet Count 243 X 10*3/uL (140-440); RBC 4.42 X 10*6/uL (4.40-5.60); WBC 9.48 X 10*3/uL (4.50-10.00)
[2021-01-31 10:06] LABS: Albumin 3.1 g/dL (3.8-4.9); Albumin/Globulin Ratio 1.35 (1.60-3.17); Anion Gap 11.7 mmol/L (4.00-12.00); BUN/Creat Ratio 12.86 Ratio (12.00-20.00); Calcium 8.1 mg/dL (8.7-10.3); Carbon Dioxide 21.3 mmol/L (21.6-31.8); Globulin 2.3 g/dL (1.6-3.3); Non-African American GFR(CKD) 85.5 (60.0-200.0); Potassium 3.9 mmol/L (3.5-5.5); Total Bilirubin 0.4 mg/dL (0.30-1.20); Total Protein 5.4 g/dL (6.2-8.2)
[2021-01-31] MEDS: IPRATROPIUM-ALBUTEROL 3 ML NEB INHALATION PRN (11:23)
[2021-01-31 11:46] LABS: Glucose,Whole Blood 159 mg/dL (75-99)
[2021-01-31] MEDS: HYDROcodone/APAP 5-325MG 1 EACH TAB PO PRN (11:55)
--- NOTE | 2021-01-31 16:30 | PN ---
PROGRESS NOTE This 85 -year-old gentleman who had a right foot infected callus. Patient had extensive debridement and culture from the calcaneus. Culture report is pending. Patient is under care of Infectious Disease. PLAN: Continue with Renae olson. The patient is on IV antibiotics under care of Infectious Disease. MMODL / IJN: [id number] /
[2021-01-31 16:38] LABS: Glucose,Whole Blood 174 mg/dL (75-99)
[2021-01-31 20:06] LABS: Glucose,Whole Blood 124 mg/dL (75-99)
[2021-01-31] MEDS: ACETAMINOPHEN TAB 325 MG TAB PO PRN (20:19)
[2021-01-31] MEDS: lisinopriL 10 MG TAB PO SCH (20:19)
--- NOTE | 2021-01-31 22:26 | PN ---
PROGRESS NOTE DATE OF SERVICE: 01/31/2021 REASON FOR FOLLOWUP: Right heel infected pressure ulcer. INTERVAL HISTORY: The patient is afebrile. He is currently breathing comfortably. No chest pain, shortness of breath or cough. No abdominal pain or worried pain to the right heel area. PHYSICAL EXAMINATION: Blood pressure 153/79 with a pulse of 63, temperature 98.3. He is 99% on room air. General description is an elderly male lying in bed in no distress. Respiratory system: Unlabored breathing, decreased intensity of breath sounds. No wheeze. Heart S1, S2. Regular rate and rhythm. Abdomen soft, no tenderness. LABS: Hemoglobin is 12.4, white count 9.48, creatinine 0.59. Culture is showing presumptive MRSA, enterococcus and a Gram-negative. DIAGNOSTIC IMPRESSION AND PLAN: Patient with right heel infected pressure ulcer, stage IV, with acute osteomyelitis, status post debridement. Culture with MRSA, Gram-negative, enterococcus. Patient is covered with vancomycin and Unasyn with discharge antibiotic based on the culture report. Continue supportive care. MMODL / IJN: [id number] /
[2021-02-01] MEDS: AMPICILLIN-SULBACTAM 3 GM in SODIUM CHLORIDE 0.9% 100 ML IVPB SCH ×4 (05:06→23:26)
[2021-02-01] MEDS: VANCOMYCIN 1,750 MG in SODIUM CHLORIDE 0.9% 500 ML 500 ML IVPB SCH ×2 (05:08→17:30)
[2021-02-01] MEDS: NON FORMULARY DRUG (Empagliflozin [Jardiance] 25 MG Tablet) PO SCH (06:50)
[2021-02-01 06:54] LABS: Glucose,Whole Blood 104 mg/dL (75-99)
[2021-02-01] MEDS: INSULIN ASPART (NovoLOG) 100 UNIT/ML VIAL SQ SCH ×4 (07:04→20:45)
[2021-02-01] MEDS: SODIUM CHLORIDE 0.9% 1,000 ML IV SCH ×2 (07:15→20:45)
[2021-02-01] MEDS: metFORMIN 500 MG TAB PO SCH ×2 (07:19→17:30)
[2021-02-01] MEDS: guaiFENesin 600 MG TABLET.ER PO SCH ×2 (07:19→20:45)
[2021-02-01] MEDS: METOPROLOL TARTRATE 25 MG TAB PO SCH ×2 (07:19→17:30)
[2021-02-01] MEDS: APIXABAN 2.5 MG TABLET PO SCH ×2 (07:19→17:30)
--- NOTE | 2021-02-01 11:01 | PN ---
PROGRESS NOTE This 85-year-old white male has diabetic wound ulcer on the right heel, status post debridement. Waiting for deep cultures prior to IV antibiotics being given. Dr. Linares talked to the family. I talked to the family about chronic care for right heel infected pressure ulcer. Temperature 98.3, pulse 63, blood pressure 150s over 70s. He is 99% on room air. Cardiovascular: S1, S2. Lungs: Rales at the base. Hematology: Negative Homans. Integument: Right heel ulcer. Hemoglobin is 12.4, white count 9.4, creatinine 0.59. Culture showed presumptive MRSA, enterococcus, Gram-negative. Covered with vancomycin and Unasyn. Discharge antibiotics awaiting further culture. Please see further orders. MMODL / IJN: [id number] /
[2021-02-01] MEDS: IPRATROPIUM-ALBUTEROL 3 ML NEB INHALATION PRN ×2 (11:05→19:22)
[2021-02-01] MEDS: SYMBICORT 160-4.5 MCG INHALER INHALATION SCH ×2 (11:05→19:22)
[2021-02-01 11:28] LABS: Glucose,Whole Blood 138 mg/dL (75-99)
[2021-02-01 16:32] LABS: Glucose,Whole Blood 117 mg/dL (75-99)
[2021-02-01] MEDS ORDERED: diphenhydrAMINE 50 MG CAP PO STA (18:27)
--- NOTE | 2021-02-01 20:08 | CDI ---
Documentation Clarification Form Date: 02/01/2021 07:44:53 PM From: Juana Mcintosh RN CCDS Admit Date: 01/26/2021 06:02:00 PM Patient Name: Brandt Balderas Visit Number: [id number] Discharge Date: ATTENTION: The Clinical Documentation Specialists (CDI) and [facility] Coding Staff appreciate your assistance in clarifying documentation. Please respond to the clarification below the line at the bottom and electronically sign. The CDI & [facility] Coding staff will review the response and follow-up if needed. Please note: Queries are made part of the Legal Health Record. If you have any questions, please contact the author of this message via ITS. Dr. Paul Damian The Registered Dietitian assessment on 02/01 indicates this patient has increased nutrient needs protein, vitamin C and zinc. Based on this information and the findings below, is there an additional diagnosis that is clinically appropriate for this patient? History/Risk Factors: 85-year-old male presents to the ED from [facility] with severe osteomyelitis of the right foot and is becoming worse. Medical history: Type 2 DM, Neuropathy bilateral feet, arthritis of multiple joints. Recent COVID pneumonia and HTN. Clinical Indicators: 02/[address] Consult Assessment: Patient admitted for right heel osteomyelitis, right foot DM ulcer. Current BMI: 27.1kg/m Nutrition Intake: Good percent consumed 75-100%. Additional comments: Consistent carb, ground diet, 80% meals. Appetite good, Related Meds Insulin, Lab Cr 0.59, POCG 104-174. Body mass Index: Normal, Calculated Golva body weight 80.9kg. Estimated Nutritional Needs Kcals: Golva body weight used to estimate needs. Energy formula for est. nutritional needs 25-30 Kcals/kg, Energy needs 2426. KCAL CHO: 278grams. Estimated Protein Needs: Golva body weight estimated protein 2.0 grams/kg, estimated protein needs grams /day 161, Estimated fluid needs: fluid formula 1ml/Kcal Estimated fluid needs mls/day Nutrition Diagnosis: Increased nutrient needs Protein, Vit C, Zinc. Related to wound healing, as evidenced by Unstageable pressure injury on the right heel. Outcome status Met; Outcome comment: Patient is consuming 80% of the meals and 100% of the Glucernas. RD encouraged PO intake. Treatment: Dietary Consult: See above Supplements: Glucerna daily Kcal/serving 220 Kcal, Protein 10grams Is there an additional diagnosis that is clinically appropriate for this patient? [ ] Mild Protein-Calorie Malnutrition [ ] Moderate Protein-Calorie Malnutrition [ ] Severe Protein-Calorie Malnutrition [ ] Other condition, please specify [ ] Unable to Determine (Template Last Revised: May 2020) MTDD
[2021-02-01 20:36] LABS: Glucose,Whole Blood 139 mg/dL (75-99)
[2021-02-01] MEDS: lisinopriL 10 MG TAB PO SCH (20:45)
[2021-02-01] MEDS: ACETAMINOPHEN TAB 325 MG TAB PO PRN (20:54)
--- NOTE | 2021-02-01 23:18 | PN ---
PROGRESS NOTE DATE OF SERVICE: 02/01/2021 REASON FOR FOLLOWUP: Right heel infected pressure ulcer with underlying osteomyelitis, acute, secondary to MRSA. INTERVAL HISTORY: The patient is afebrile. The patient is currently breathing comfortably. Denies having any chest pain or shortness of breath or cough. No abdominal pain or diarrhea. PHYSICAL EXAMINATION: Blood pressure 156/86, pulse of 94, temperature of 97.5. He is 98% on room air. General description is an elderly male lying in bed in no distress. Respiratory system: Unlabored breathing, clear to auscultation anteriorly. Heart S1, S2. Regular rate and rhythm. Abdomen soft, no tenderness. LABS: Cultures have been positive for multiple pathogens, including MRSA, Enterococcus faecalis, anaerobes and Proteus. DIAGNOSTIC IMPRESSION AND PLAN: Patient with a right heel infected pressure ulcer with underlying osteomyelitis, status post culture with multiple pathogens, including MRSA, Enterococcus and Proteus along with anaerobes. Patient to continue with Unasyn and vancomycin. Plan is for a total of 6 weeks of therapy. Local wound care to continue per Vascular Surgery and keep the area off pressure. MMODL / IJN: [id number] /
[2021-02-01] MEDS: HYDROcodone/APAP 5-325MG 1 EACH TAB PO PRN (23:25)
[2021-02-02] MEDS: AMPICILLIN-SULBACTAM 3 GM in SODIUM CHLORIDE 0.9% 100 ML IVPB SCH ×3 (05:11→22:08)
[2021-02-02] MEDS: VANCOMYCIN 1,750 MG in SODIUM CHLORIDE 0.9% 500 ML 500 ML IVPB SCH ×3 (05:47→23:21)
[2021-02-02 06:58] LABS: Glucose,Whole Blood 104 mg/dL (75-99)
[2021-02-02] MEDS: SYMBICORT 160-4.5 MCG INHALER INHALATION SCH ×2 (07:55→21:06)
[2021-02-02] MEDS: INSULIN ASPART (NovoLOG) 100 UNIT/ML VIAL SQ SCH ×4 (08:14→21:24)
[2021-02-02] MEDS: NON FORMULARY DRUG (Empagliflozin [Jardiance] 25 MG Tablet) PO SCH (08:15)
[2021-02-02] MEDS: APIXABAN 2.5 MG TABLET PO SCH ×2 (08:15→16:27)
[2021-02-02] MEDS: guaiFENesin 600 MG TABLET.ER PO SCH ×2 (08:37→21:24)
[2021-02-02] MEDS: metFORMIN 500 MG TAB PO SCH ×2 (08:37→16:31)
[2021-02-02] MEDS: METOPROLOL TARTRATE 25 MG TAB PO SCH ×2 (08:37→16:31)
[2021-02-02] MEDS: ACETAMINOPHEN TAB 325 MG TAB PO PRN ×2 (08:44→16:36)
--- NOTE | 2021-02-02 09:05 | PN ---
PROGRESS NOTE This 85-year-old white male presents with osteomyelitis of the right heel, status post wound debridement. He remains on Zosyn and vancomycin. Waits for final cultures prior to go to a senior care. hypertensive diabetic medications and breathing treatments. He is sitting up in bed eating comfortably. He has a padded brace on his right foot. He has MRSA infection in the wound, including MRSA, Enterococcus faecalis, anaerobes and Proteus. He will continue with Unasyn and vancomycin, 6 weeks of IV therapy with a PICC line. Continue with vascular surgery and keep off the pressure. Prognosis guarded. Possibly boot will be needed. MMODL / IJN: [id number] /
[2021-02-02 09:29] LABS: Basophils # (A) 0.02 X 10*3/uL (0.00-0.10); Basophils % (A) 0.3 %; Eosinophils # (A) 0.68 X 10*3/uL (0.04-0.35); Eosinophils % (A) 8.6 %; HCT 43.1 % (39.6-50.0); HGB 13.4 g/dL (13.0-17.0); Lymphocytes # (A) 0.99 X 10*3/uL (0.90-5.00); Lymphocytes % (A) 12.5 %; MCH 28.6 pg (27.0-32.0); MCHC 31.1 g/dL (32.0-37.0); MCV 91.9 fL (80.0-97.0); Mean Platelet Volume 11.2 fL (9.5-12.2); Monocytes # (A) 0.73 X 10*3/uL (0.20-1.00); Monocytes % (A) 9.3 %; Neutrophils # (A) 5.44 X 10*3/uL (1.80-7.70); Neutrophils % (A) 68.9 %; Platelet Count 267 X 10*3/uL (140-440); RBC 4.69 X 10*6/uL (4.40-5.60); RDW 14.3 % (11.5-14.5); WBC 7.89 X 10*3/uL (4.50-10.00)
[2021-02-02 09:56] LABS: African American GFR (CKD) 93.7 (60.0-200.0); Albumin 3.2 g/dL (3.8-4.9); Albumin/Globulin Ratio 1.33 (1.60-3.17); Anion Gap 9.6 mmol/L (10.00-18.00); BUN/Creat Ratio 10.25 Ratio (12.00-20.00); Blood Urea Nitrogen 8.2 mg/dL (9.0-27.0); Calcium 8.3 mg/dL (8.7-10.3); Carbon Dioxide 25.4 mmol/L (20.0-27.5); Globulin 2.4 g/dL (1.6-3.3); Non-African American GFR(CKD) 80.9 (60.0-200.0); Potassium 4.1 mmol/L (3.5-5.5); Total Bilirubin 0.3 mg/dL (0.30-1.20); Total Protein 5.6 g/dL (6.2-8.2)
[2021-02-02 11:35] LABS: INR 1.04 (0.90-1.11); Prothrombin Time 11.4 sec (9.9-11.9)
[2021-02-02 11:56] LABS: Glucose,Whole Blood 203 mg/dL (75-99)
--- NOTE | 2021-02-02 15:47 | DS ---
DISCHARGE SUMMARY This 85-year-old male came to the hospital with osteomyelitis of the right foot, had a surgical debridement with Dr. Carpenter. Dr. Linares saw him on infectious disease consult. Multiple cultures were done that showed MRSA, Enterococcus faecalis, Proteus mirabilis on the right heel. Currently they are treating with Santyl, dressing changes every day. Pressure boot so he has no pressure on the foot and he is going to need IV antibiotics for [address] Carpenter's recommendation at the group home. Otherwise medically he was stable while in the hospital. DISCHARGE MEDICINES: 1. Unasyn 3 grams IV piggyback q.6 hours. 2. Vancomycin 1750 mg IV piggyback q.12. 3. [place] 5/325 every 12 hours p.r.n. for pain. 4. DuoNeb updraft q.i.d. 5. Mucinex 600 b.i.d. 6. Metformin 500 b.i.d. 7. Lopressor 25 b.i.d. 8. LiquaCel 30 mL b.i.d. 9. Santyl topical application daily. 10.Eliquis 2.5 b.i.d. 11.Zestril 10 mg daily. 12.Lidocaine topically 5% topical cream daily. 13.Tylenol 650 q.4 to 6 p.r.n. for pain. 14.NovoLog before meals and at bedtime. 15.Symbicort 160/4.5 two puffs b.i.d. 16.Jardiance 25 mg daily. 17.Dakin solution topically daily. 18.Milk of magnesia for constipation p.r.n. CONDITION: Stable. PROGNOSIS: Guarded, Ambulate as tolerated. Diet as tolerated, regular. 1. Diabetic foot ulcer. 2. Osteomyelitis of the right foot. 3. Metabolic encephalopathy. 4. History of cerebrovascular accident. 5. Diabetes. 6. Hypertension. Prognosis guarded. Follow up Dr. Paul Damian at the group home. MMODL / IJN: [id number] /
[2021-02-02] MEDS: SODIUM CHLORIDE 0.9% 1,000 ML IV SCH (15:48)
[2021-02-02 16:20] LABS: Glucose,Whole Blood 117 mg/dL (75-99)
[2021-02-02 20:54] LABS: Glucose,Whole Blood 109 mg/dL (75-99)
[2021-02-02] MEDS: IPRATROPIUM-ALBUTEROL 3 ML NEB INHALATION PRN (21:06)
[2021-02-02] MEDS: lisinopriL 10 MG TAB PO SCH (21:24)
--- NOTE | 2021-02-02 22:29 | PN ---
PROGRESS NOTE DATE OF SERVICE: 02/02/2021 REASON FOR FOLLOWUP: Right heel infected pressure ulcer. Underlying osteomyelitis, acute. INTERVAL HISTORY: Patient is afebrile. The patient is currently breathing comfortably. He was seen on rounds this morning. Overall doing well and the patient supposed to be discharged. However, the patient did pull out his PICC line before discharge. No vomiting, diarrhea or any other changes reported by nursing staff. PHYSICAL EXAMINATION: Blood pressure is 161/87 with a pulse of 90. Temperature is 97.6. He is 96% on room air. General description is an elderly male up in the bed in no distress. Respiratory system: Unlabored breathing, decreased breath sounds at the bases. No wheeze. Heart S1, S2. Regular rate and rhythm. Abdomen soft, no tenderness. LABS: No new labs have been obtained today. DIAGNOSTIC IMPRESSION AND PLAN: Patient with right heel infected pressure ulcer, multiple pathogen including MRSA, Enterococcus, Proteus mirabilis and anaerobes. Patient is covered with Unasyn and vancomycin which can be continued or we will transition to vancomycin, Rocephin, Flagyl for ease of administration. Local care to continue per surgery. Continue supportive care. MMODL / IJN: [id number] /
[2021-02-03] MEDS: AMPICILLIN-SULBACTAM 3 GM in SODIUM CHLORIDE 0.9% 100 ML IVPB SCH ×5 (00:28→21:15)
[2021-02-03] MEDS: SODIUM CHLORIDE 0.9% 1,000 ML IV SCH ×2 (03:28→15:30)
[2021-02-03 06:34] LABS: African American GFR (CKD) >90 (>60 ml/min/1.73 sqM); Anion Gap 8 mmol/L; Blood Urea Nitrogen 7 mg/dL (9-20); Calcium 8.4 mg/dL (8.4-10.2); Carbon Dioxide 25 mmol/L (22-30); Chloride 105 mmol/L (98-107); Glucose 107 mg/dL (74-99); Non-African American GFR(CKD) >90 (>60 ml/min/1.73 sqM); Potassium 3.7 mmol/L (3.5-5.1); Sodium 138 mmol/L (137-145)
[2021-02-03 06:54] LABS: Glucose,Whole Blood 104 mg/dL (75-99)
[2021-02-03] MEDS: INSULIN ASPART (NovoLOG) 100 UNIT/ML VIAL SQ SCH ×4 (07:09→21:12)
[2021-02-03] MEDS: IPRATROPIUM-ALBUTEROL 3 ML NEB INHALATION PRN (07:22)
[2021-02-03] MEDS: SYMBICORT 160-4.5 MCG INHALER INHALATION SCH ×2 (07:22→20:13)
[2021-02-03] MEDS: metFORMIN 500 MG TAB PO SCH ×2 (07:52→16:57)
[2021-02-03] MEDS: guaiFENesin 600 MG TABLET.ER PO SCH ×2 (07:52→21:12)
[2021-02-03] MEDS: APIXABAN 2.5 MG TABLET PO SCH ×2 (07:52→16:57)
[2021-02-03] MEDS: METOPROLOL TARTRATE 25 MG TAB PO SCH ×2 (07:52→16:57)
[2021-02-03] MEDS: NON FORMULARY DRUG (Empagliflozin [Jardiance] 25 MG Tablet) PO SCH (07:53)
[2021-02-03 11:16] LABS: Glucose,Whole Blood 116 mg/dL (75-99)
[2021-02-03] MEDS: VANCOMYCIN 1,750 MG in SODIUM CHLORIDE 0.9% 500 ML 500 ML IVPB SCH ×2 (12:02→23:35)
[2021-02-03 16:39] LABS: Glucose,Whole Blood 150 mg/dL (75-99)
--- NOTE | 2021-02-03 18:27 | P.PN ---
Progress Note - Text Progress Note Date: 02/03/21 Presenting complaint: Right heel infected pressure ulcer Hospital course: Patient presented with right heel infected pressure ulcer/acute osteomyelitis. He had a surgical debridement carried out by Dr. Carpenter. Wound cultures were positive for multiple orgasms. Patient has a pressure boot. Patient had a PICC line placed. He pointed out yesterday hence could not be discharged to [facility]. February 03: Laying in bed. Comfortable. Dressing in both to the right foot. Eating about 75%. IV Unasyn. IV vancomycin. Tired Review of systems: Was done for constitutional, cardiovascular, GI, pulmonary. relevant finding as above Active Medications Acetaminophen (Acetaminophen Tab 325 Mg Tab) 650 mg PO Q6HR PRN PRN Reason: Fever and/ or Pain Last Admin: 02/02/21 16:36 Dose: 650 mg Documented by: Hydrocodone Bitart/Acetaminophen (Hydrocodone/Apap 5-325mg 1 Each Tab) 1 each PO Q12H PRN PRN Reason: Pain Last Admin: 02/01/21 23:25 Dose: 1 each Documented by: Albuterol/Ipratropium (Ipratropium-Albuterol 3 Ml Neb) 3 ml INHALATION RT-Q6H PRN PRN Reason: Shortness Of Breath Last Admin: 02/03/21 07:22 Dose: 3 ml Documented by: Apixaban (Apixaban 2.5 Mg Tablet) 2.5 mg PO BID@0800,1700 [facility]; Protocol Last Admin: 02/03/21 16:57 Dose: 2.5 mg Documented by: Budesonide/Formoterol Fumarate (Symbicort 160-4.5 Mcg Inhaler) 2 puff INHALATION RT-BID [facility] Last Admin: 02/03/21 07:22 Dose: 2 puff Documented by: Guaifenesin (Guaifenesin 600 Mg Tablet.Er) 600 mg PO BID@0800,2100 [facility] Last Admin: 02/03/21 07:52 Dose: 600 mg Documented by: Sodium Chloride (Saline 0.9%) 1,000 mls @ 75 mls/hr IV .[id number] [facility] Last Admin: 02/03/21 15:30 Dose: Not Given Documented by: Ampicillin Sodium/Sulbactam (Sodium 3 gm/ Sodium Chloride) 100 mls @ 200 mls/hr IVPB Q6H [facility] Last Admin: 02/03/21 16:57 Dose: 200 mls/hr Documented by: Vancomycin HCl 1,750 mg/ (Sodium Chloride) 500 mls @ 167 mls/hr IVPB Q12H [facility] Last Admin: 02/03/21 12:02 Dose: 167 mls/hr Documented by: Insulin Aspart (Insulin Aspart (Novolog) 100 Unit/Ml Vial) 0 unit SQ ACHS [facility]; Protocol Last Admin: 02/03/21 16:57 Dose: 1 unit Documented by: Lisinopril (Lisinopril 10 Mg Tab) 10 mg PO HS@2100 [facility] Last Admin: 02/02/21 21:24 Dose: 10 mg Documented by: Magnesium Hydroxide (Magnesium Hydroxide 2,400 Mg/10 Ml Cup) 7,200 mg PO DAILY PRN PRN Reason: Constipation Metformin HCl (Metformin 500 Mg Tab) 500 mg PO BID@0800,1700 [facility] Last Admin: 02/03/21 16:57 Dose: 500 mg Documented by: Metoprolol Tartrate (Metoprolol Tartrate 25 Mg Tab) 25 mg PO BID@0800,1700 [facility] Last Admin: 02/03/21 16:57 Dose: 25 mg Documented by: Naloxone HCl (Naloxone 0.4 Mg/Ml 1 Ml Vial) 0.2 mg IV Q2M PRN PRN Reason: Opioid Reversal Non-Formulary Medication (Empagliflozin [Jardiance]) 25 mg PO DAILY@0800 [facility] Last Admin: 02/03/21 07:53 Dose: Not Given Documented by: On examination: VITAL SIGNS: 98.3, 97, 18, 129/71, 96% GENERAL APPEARANCE: Laying in bed, comfortable, tired HEENT: Normal external appearance of nose and ear. Oral cavity normal EYES: Pupils equal. Conjunctiva normal. NECK: JVD not raised. Mass not palpable. RESPIRATORY: Respiratory effort normal. Lungs decreased breath sound CARDIOVASCULAR: First and second sounds normal. No edema. ABDOMEN: Soft. Liver and spleen not palpable. No tenderness. No mass palpable. PSYCHIATRY: Answering simple questions EXTREMITIES: Right foot in dressing with the supportive both INVESTIGATIONS, reviewed in the clinical context: Sodium 138 potassium 3.7 BUN 7 creatinine 0.56 Wound culture: MRSA, Enterococcus faecalis, Proteus mirabilis Foot x-ray: Associated irregular periosteal reaction of the calcaneus possible osteomyelitis Assessment and plan: -Acute osteomyelitis of the right calcaneum. Wound culture positive for multiple orgasms IV antibiotics per ID -Persistent atrial fibrillation, rate controlled Lopressor 25 mg twice a day. Eliquis. -Diabetes mellitus type 2, on oral hypoglycemic Metformin 500 mg twice a day. Follow Accu-Chek -Essential hypertension Zestril 10 mg daily at bedtime, Lopressor 25 mg twice a day -Primary osteoarthritis Pain medications as needed -COPD in a nonsmoker DuoNeb when necessary. 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 Has discharge cannot be done. IV vancomycin and IV Unasyn. Should be able to discharged to ECF tomorrow.
[2021-02-03 20:37] LABS: Glucose,Whole Blood 127 mg/dL (75-99)
[2021-02-03] MEDS: lisinopriL 10 MG TAB PO SCH (21:12)
[2021-02-03] MEDS: HYDROcodone/APAP 5-325MG 1 EACH TAB PO PRN (21:12)
[2021-02-04] MEDS: AMPICILLIN-SULBACTAM 3 GM in SODIUM CHLORIDE 0.9% 100 ML IVPB SCH ×3 (04:06→16:20)
[2021-02-04] MEDS: SODIUM CHLORIDE 0.9% 1,000 ML IV SCH (04:06)
[2021-02-04 07:02] LABS: Glucose,Whole Blood 113 mg/dL (75-99)
[2021-02-04] MEDS: INSULIN ASPART (NovoLOG) 100 UNIT/ML VIAL SQ SCH ×2 (07:19→11:53)
[2021-02-04] MEDS: metFORMIN 500 MG TAB PO SCH ×2 (07:29→16:20)
[2021-02-04] MEDS: guaiFENesin 600 MG TABLET.ER PO SCH (07:29)
[2021-02-04] MEDS: APIXABAN 2.5 MG TABLET PO SCH ×2 (07:29→16:21)
[2021-02-04] MEDS: METOPROLOL TARTRATE 25 MG TAB PO SCH ×2 (07:29→16:20)
[2021-02-04] MEDS: NON FORMULARY DRUG (Empagliflozin [Jardiance] 25 MG Tablet) PO SCH (07:30)
[2021-02-04] MEDS: SYMBICORT 160-4.5 MCG INHALER INHALATION SCH (09:03)
--- NOTE | 2021-02-04 09:53 | PN ---
PROGRESS NOTE DATE OF SERVICE: 02/03/2021 REASON FOR FOLLOWUP: Right heel infected pressure ulcer. INTERVAL HISTORY: Patient is afebrile, currently breathing comfortably. Denies having any chest pain, shortness of breath or cough. No abdominal pain. No worsening pain to the right heel area. PHYSICAL EXAMINATION: Blood pressure 129/71, pulse of 97, temperature 98.3. He is 96% on room air. General description is an elderly male lying in bed in no distress. Respiratory system: Unlabored breathing, clear to auscultation anteriorly. Heart S1, S2. Regular rate and rhythm. Abdomen soft, no tenderness. Right heel is currently dressed up. LABS: Creatinine 0.56. DIAGNOSTIC IMPRESSION AND PLAN: Patient with right heel infected pressure ulcer culture with multiple pathogen including MRSA . Patient is covered with Unasyn and vancomycin to continue planning for a PICC line placement tomorrow and plan for a total of 6 week course of therapy. Continue supportive care. MMODL / IJN: [id number] /
[2021-02-04 11:13] LABS: African American GFR (CKD) >90 (>60 ml/min/1.73 sqM); Anion Gap 5 mmol/L; Blood Urea Nitrogen 7 mg/dL (9-20); Calcium 8.1 mg/dL (8.4-10.2); Carbon Dioxide 27 mmol/L (22-30); Chloride 106 mmol/L (98-107); Glucose 111 mg/dL (74-99); Non-African American GFR(CKD) 87 (>60 ml/min/1.73 sqM); Potassium 3.2 mmol/L (3.5-5.1); Sodium 138 mmol/L (137-145)
[2021-02-04 11:48] LABS: Glucose,Whole Blood 111 mg/dL (75-99)
[2021-02-04] MEDS: VANCOMYCIN 1,750 MG in SODIUM CHLORIDE 0.9% 500 ML 500 ML IVPB SCH (12:00)
[2021-02-04] MEDS ORDERED: LIDOCAINE 1% INJ 10MG/ML (20 ML MDV) SQ ONE (13:03)
[2021-02-04] MEDS ORDERED: POTASSIUM CHLORIDE ER 20 MEQ TAB.ER PO STA (14:51)
--- NOTE | 2021-02-04 14:52 | P.DS ---
Providers Date of admission: 01/26/21 18:02 Expected date of discharge: 02/04/21 Attending physician: Paul Damian Consults: 01/26/21 17:56 Consult Physician Urgent Consulting Provider: Cheri Curry Consult Reason/Comments: Osteomyelitis Do you want consulting provider notified?: Yes 01/27/21 16:31 Consult Physician Urgent Consulting Provider: Ildefonso Carpenter Consult Reason/Comments: wound on right heel Do you want consulting provider notified?: Yes Primary care physician: [facility] Course: Presenting complaint: Right heel infected pressure ulcer Hospital course: Patient presented with right heel infected pressure ulcer/acute osteomyelitis. He had a surgical debridement carried out by Dr. Carpenter. Wound cultures were positive for multiple orgasms. Patient has a pressure boot. Patient had a PICC line placed. He pointed out yesterday hence could not be discharged to ECF. February 03: Laying in bed. Comfortable. Dressing in both to the right foot. Eating about 75%. IV Unasyn. IV vancomycin. Tired February 04: Comfortable. Eating well. PICC line in place. Discussed with social science research assistant. Discharge to ECF today. Consultation: Dr. Curry from ID Dr. Carpenter from vascular On examination: VITAL SIGNS: 97.4, 107, 16, 152/81, 97% room air GENERAL APPEARANCE: Laying in bed, comfortable, tired HEENT: Normal external appearance of nose and ear. Oral cavity normal EYES: Pupils equal. Conjunctiva normal. NECK: JVD not raised. Mass not palpable. RESPIRATORY: Respiratory effort normal. Lungs decreased breath sound CARDIOVASCULAR: First and second sounds normal. No edema. ABDOMEN: Soft. Liver and spleen not palpable. No tenderness. No mass palpable. PSYCHIATRY: Answering simple questions EXTREMITIES: Right foot in dressing with the supportive both INVESTIGATIONS, reviewed in the clinical context: Sodium 138 potassium 3.7 BUN 7 creatinine 0.56 Wound culture: MRSA, Enterococcus faecalis, Proteus mirabilis Foot x-ray: Associated irregular periosteal reaction of the calcaneus possible osteomyelitis Assessment and plan: -Acute osteomyelitis of the right calcaneum. Wound culture positive for multiple orgasms IV Unasyn 3 g IV piggyback every 6/vancomycin 750 mg IVP every 12 hours -Persistent atrial fibrillation, rate controlled Lopressor 25 mg twice a day. Eliquis. -Diabetes mellitus type 2, on oral hypoglycemic Metformin 500 mg twice a day. Follow Accu-Chek -Essential hypertension Zestril 10 mg daily at bedtime, Lopressor 25 mg twice a day -Primary osteoarthritis Pain medications as needed -COPD in a nonsmoker DuoNeb when necessary. 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 Disposition: ECF/[place] Labs: CBC/BMP: 2 days Patient Condition at Discharge: Stable Plan - Discharge Summary Discharge Rx Participant: No New Discharge Prescriptions: New Ampicillin-Sulbactam [Unasyn] 3 gm IVPB Q6HR each Vancomycin 1,750 mg IVPB Q12H each Continue HYDROcodone/APAP 5-325MG [[place] 5-325] 1 tab PO Q12H PRN PRN Reason: Pain Ipratropium-Albuterol Nebulize [Duoneb 0.5 mg-3 mg/3 ml Soln] 3 ml INHALATION RT-Q6H PRN PRN Reason: Shortness Of Breath guaiFENesin [Mucinex] 600 mg PO BID@0800,2100 metFORMIN HCL [Glucophage] 500 mg PO BID@0800,1700 Metoprolol Tartrate [Lopressor] 25 mg PO BID@0800,1700 Liquacel 30 ml PO BID@0800,1700 Collagenase [Santyl] 1 applic TOPICAL DAILY Apixaban [Eliquis] 2.5 mg PO BID@0800,1700 lisinopriL [Zestril] 10 mg PO HS@2100 Lidocaine 5% Cream 1 mm TOPICAL DAILY PRN PRN Reason: WOUND PRIOR TO PROCEDURE Acetaminophen [Tylenol] 650 mg PO Q4H PRN PRN Reason: Pain Or Fever > 100.5 INSULIN ASPART (NovoLOG) [NovoLOG (formulary)] See Protocol SQ ACHS Budesonide/Formoterol Fumarate [Symbicort 160-4.5 Mcg Inhaler] 2 puff INHALATION RT-BID Empagliflozin [Jardiance] 25 mg PO DAILY@0800 Dakins Solution 0.25% 1 applic TOPICAL DAILY Magnesium Hydroxide [Milk of Magnesia Concentrate] 7,200 mg PO DAILY PRN PRN Reason: Constipation Discontinued Na Phos,M-B/Na Phos,Di-Ba [Fleet Adult] 133 ml RECTAL DAILY PRN PRN Reason: Constipation bisacodyL 10 mg RECTAL DAILY PRN PRN Reason: Constipation Discharge Medication List Acetaminophen [Tylenol] 650 mg PO Q4H PRN 01/26/21 [History] Apixaban [Eliquis] 2.5 mg PO BID@0800,1700 01/26/21 [History] Budesonide/Formoterol Fumarate [Symbicort 160-4.5 Mcg Inhaler] 2 puff INHALATION RT-BID 01/26/21 [History] Collagenase [Santyl] 1 applic TOPICAL DAILY 01/26/21 [History] Dakins Solution 0.25% 1 applic TOPICAL DAILY 01/26/21 [History] Empagliflozin [Jardiance] 25 mg PO DAILY@0800 01/26/21 [History] HYDROcodone/APAP 5-325MG [[place] 5-325] 1 tab PO Q12H PRN 01/26/21 [History] INSULIN ASPART (NovoLOG) [NovoLOG (formulary)] See Protocol SQ ACHS 01/26/21 [History] Ipratropium-Albuterol Nebulize [Duoneb 0.5 mg-3 mg/3 ml Soln] 3 ml INHALATION RT-Q6H PRN 01/26/21 [History] Lidocaine 5% Cream 1 mm TOPICAL DAILY PRN 01/26/21 [History] Liquacel 30 ml PO BID@0800,1700 01/26/21 [History] Magnesium Hydroxide [Milk of Magnesia Concentrate] 7,200 mg PO DAILY PRN 01/26/21 [History] Metoprolol Tartrate [Lopressor] 25 mg PO BID@0800,1700 01/26/21 [History] guaiFENesin [Mucinex] 600 mg PO BID@0800,209901/26/21 [History] lisinopriL [Zestril] 10 mg PO HS@209901/26/21 [History] metFORMIN HCL [Glucophage] 500 mg PO BID@0800,1700 01/26/21 [History] Ampicillin-Sulbactam [Unasyn] 3 gm IVPB Q6HR each 02/02/21 [Rx] Vancomycin 1,750 mg IVPB Q12H each 02/02/21 [Rx] Activity/Diet/Wound Care/Special Instructions: follow up with Dr curry at [facility] wound care in 1 week post discharge call [phone] to make an appointment [place] with noadherent, kerlex, and zander daily to right heel. NWB to right heel.
[2021-02-04 16:20] VITALS: BP 136/74; PULSE 86; RESP 18; TEMP 97.6
--- NOTE | 2021-02-04 17:38 | PN ---
PROGRESS NOTE DATE OF SERVICE: 02/04/2021 REASON FOR FOLLOWUP: Right heel osteomyelitis, acute, with MRSA. INTERVAL HISTORY: The patient is afebrile. The patient is currently breathing comfortably. No chest pain, shortness of breath or cough. No abdominal pain or diarrhea. PHYSICAL EXAMINATION: Blood pressure 136/74, pulse of 86, temperature 97.6. He is 97% on room air. General description is an elderly male lying in bed in no distress. Respiratory system: Unlabored breathing, clear to auscultation anteriorly. Heart S1, S2. Regular rate and rhythm. Abdomen soft, no tenderness. Right heel is currently dressed. No obvious drainage on the dressing. LABS: Creatinine 0.67. DIAGNOSTIC IMPRESSION AND PLAN: Patient with right heel osteomyelitis. Culture has been positive for multiple pathogens, including MRSA, streptococcus, anaerobes. Patient is doing well on Unasyn and vancomycin; to continue for 6 weeks. [facility]. Continue supportive care. MMODL / IJN: [id number] /
[2021-02-05] MEDS ORDERED: VANCOMYCIN TROUGH DUE 1 EACH MISC MISCELLANE ONE (04:00)
--- NOTE | 2021-02-11 22:59 | PN ---
PROGRESS NOTE ADDENDUM: Moderate protein-calorie malnutrition. MMODL / IJN: [id number] /
--- NOTE | 2021-02-12 13:26 | IR ---
INDICATION: Patient age:Male; 85 years old; Reason for study: Low O2 saturation. COMPARISON: Chest radiograph most recent 12/18/2017. TECHNIQUE: Frontal and lateral views of the chest. FINDINGS: Lungs/Pleura: Airspace opacities are seen throughout the lungs. No evidence for pneumothorax or large pleural effusion. Pulmonary vascularity: Unremarkable. Heart/mediastinum: Cardiomediastinal silhouette is unremarkable. Musculoskeletal: No acute osseous pathology. Surgical changes of lower cervical spine are noted. IMPRESSION: Multifocal airspace opacities which are new from 2018 concerning for atypical pneumonia.
== END 2021-02-04 16:55 | DRG 628 ==
LOC: SUPCPDRO 15:10 → EC 15:10 → 4SSUR 18:02
PROVIDERS: ADMIT Family Medicine; ATTEND Family Medicine
PROC: 0QBL0ZX Excision of Right Tarsal, Open Approach, Diagnostic (ICD-10-PCS; principal; 2021-01-29 11:00)
PROC: 02HV33Z Insertion of Infusion Device into Superior Vena Cava, Percutaneous Approach (ICD-10-PCS; 2021-02-04)
DX: E11.69 Type 2 diabetes mellitus with other specified complication (principal); L89.614 Pressure ulcer of right heel, stage 4; G93.41 Metabolic encephalopathy; I48.19 Other persistent atrial fibrillation; M86.171 Other acute osteomyelitis, right ankle and foot; E44.0 Moderate protein-calorie malnutrition; E11.621 Type 2 diabetes mellitus with foot ulcer; B95.62 Methicillin resistant Staphylococcus aureus infection as the cause of diseases classified elsewhere; E11.42 Type 2 diabetes mellitus with diabetic polyneuropathy; F03.90 Unspecified dementia, unspecified severity, without behavioral disturbance, psychotic disturbance, mood disturbance, and anxiety; I10 Essential (primary) hypertension; J44.9 Chronic obstructive pulmonary disease, unspecified; L97.519 Non-pressure chronic ulcer of other part of right foot with unspecified severity; M19.91 Primary osteoarthritis, unspecified site; Z20.822 Contact with and (suspected) exposure to COVID-19; Z79.01 Long term (current) use of anticoagulants; Z79.4 Long term (current) use of insulin; Z79.51 Long term (current) use of inhaled steroids; Z79.84 Long term (current) use of oral hypoglycemic drugs; Z79.899 Other long term (current) drug therapy; Z82.5 Family history of asthma and other chronic lower respiratory diseases; Z86.16 Personal history of COVID-19; Z87.01 Personal history of pneumonia (recurrent); Z96.1 Presence of intraocular lens; Z96.643 Presence of artificial hip joint, bilateral; Z86.73 Personal history of transient ischemic attack (TIA), and cerebral infarction without residual deficits; Z68.27 Body mass index [BMI] 27.0-27.9, adult
CPT/HCPCS: 36415; 36573; 80048; 80053; 80202; 82565; 83036; 83605; 85025; 85610; 86140; 87040; 87070; 87075; 87077; 87186; 87205; 87635; 88305; 94640; 96365; 96366; 96367; 99284

== ENCOUNTER 2021-05-10 13:08 | Inpatient (IN) | payer MEDICARE, BC ==
[2021-05-10] MEDS ORDERED: IPRATROPIUM-ALBUTEROL 3 ML NEB INHALATION STA (13:22)
--- NOTE | 2021-05-10 13:48 | ED ---
SOB HPI - General Chief Complaint: Shortness of Breath Stated Complaint: MARIA C Time Seen by Provider: 05/10/21 13:08 Source: EMS, old records reviewed Mode of arrival: EMS Limitations: no limitations - History of Present Illness Initial Comments: 85-year-old male from care home by ambulance with complaints of shortness of breath originally EMS was called because the patient could not clear his secretions upon arrival he was found to be hypoxemic dyspneic with gurgling sounds in his lungs bilaterally. He was 86% and room air he went up to 89% on oxygen and CPAP went up to 91%. No reports of fevers chills sweats nausea vomiting patient currently is only awake and alert and oriented times one did instruct is are for hospitalization but no CPR or advanced life support. No current information available MD Complaint: shortness of breath - Related Data Home Medications Medication Instructions Recorded Confirmed Acetaminophen [Tylenol] 650 mg PO Q4H PRN 01/26/21 05/10/21 Apixaban [Eliquis] 2.5 mg PO BID@0800,1700 01/26/21 05/10/21 Budesonide/Formoterol Fumarate 2 puff INHALATION RT-BID 01/26/21 05/10/21 [Symbicort 160-4.5 Mcg Inhaler] Empagliflozin [Jardiance] 25 mg PO DAILY@0800 01/26/21 05/10/21 HYDROcodone/APAP 5-325MG [[place] 1 tab PO Q6H PRN 01/26/21 05/10/21 5-325] INSULIN ASPART (NovoLOG) [NovoLOG See Protocol SQ TID@0700,1100,1630 01/26/21 05/10/21 (formulary)] Ipratropium-Albuterol Nebulize 3 ml INHALATION RT-Q6H 01/26/21 05/10/21 [Duoneb 0.5 mg-3 mg/3 ml Soln] Liquacel 30 ml PO BID@0800,1700 01/26/21 05/10/21 Magnesium Hydroxide [Milk of 7,200 mg PO DAILY PRN 01/26/21 05/10/21 Magnesia Concentrate] Metoprolol Tartrate [Lopressor] 25 mg PO BID@0800,1700 01/26/21 05/10/21 guaiFENesin [Mucinex] 600 mg PO BID@0800,2100 01/26/21 05/10/21 lisinopriL [Zestril] 10 mg PO HS@2100 01/26/21 05/10/21 metFORMIN HCL [Glucophage] 500 mg PO BID@0800,1700 01/26/21 05/10/21 Dexamethasone [Decadron] 4 mg PO DAILY@1200 05/10/21 05/10/21 Furosemide [Lasix] 20 mg PO DAILY@0800 05/10/21 05/10/21 Glucerna Shake 237 ml PO TID@0800,1200,1700 05/10/21 05/10/21 Brian Packet 1 packet PO BID@1000,1500 05/10/21 05/10/21 Levofloxacin [Levaquin] 500 mg PO DAILY@1200 05/10/21 05/10/21 Magic Butt Paste 1 applic TOPICAL BID 05/10/21 05/10/21 Na Phos,M-B/Na Phos,Di-Ba [Fleet 133 ml RECTAL DAILY PRN 05/10/21 05/10/21 Adult] Sennosides/Docusate Sodium [Senna 1 cap PO HS 05/10/21 05/10/21 Plus 8.6-50 mg Softgel] Tamsulosin HCl [Flomax] 0.4 mg PO DAILY@0800 05/10/21 05/10/21 bisacodyL [Dulcolax] 10 mg RECTAL DAILY PRN 05/10/21 05/10/21 Allergies Allergy/AdvReac Type Severity Reaction Status Date / Time No Known Allergies Allergy Verified 05/10/21 13:17 Review of Systems ROS Statement: Those systems with pertinent positive or pertinent negative responses have been documented in the HPI. ROS Other: All systems not noted in ROS Statement are negative. 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 Date of last positivie culture/infection: 01/29/21 MDRO Source:: Right Heel Wound Past Surgical History: Hernia Repair, Orthopedic Surgery Additional Past Surgical History / Comment(s): Bilateral total hip arthroplasty, TURP, umbilical and R inguinal hernia repairs, bilateral cataract removals/lens implants, teeth extraction, right above the knee amputation Past Anesthesia/Blood Transfusion Reactions: No Reported Reaction Past Psychological History: No Psychological Hx Reported Smoking Status: Never smoker Past Alcohol Use History: None Reported Past Drug Use History: None Reported - Past Family History Mother History Unknown: Yes Additional Family Medical History / Comment(s): Mother at age 70 from unknown cause. Father Family Medical History: Asthma Additional Family Medical History / Comment(s): Father from unknown cause but did have asthma. Sister(s) Family Medical History: Vascular Disorder Additional Family Medical History / Comment(s): He has one sister that from an aneurysm. General Exam - General Exam Comments Initial Comments: This a well-developed well-nourished awake alert male Limitations: no limitations General appearance: alert, lethargic Head exam: Present: atraumatic, normocephalic, normal inspection Eye exam: Present: normal appearance, PERRL, EOMI. Absent: scleral icterus, conjunctival injection, periorbital swelling ENT exam: Present: mucous membranes dry Neck exam: Present: normal inspection, full ROM, other (No stridor JVD or bruits). Absent: tenderness, meningismus, lymphadenopathy Respiratory exam: Present: rhonchi, accessory muscle use, decreased breath sounds Cardiovascular Exam: Present: tachycardia, irregular rhythm GI/Abdominal exam: Present: soft. Absent: distended, tenderness, bruit, pulsat ile mass Rectal exam: Present: deferred exam: Present: normal inspection Neurological exam: Present: alert, altered, CN II-XII intact Psychiatric exam: Present: flat affect Course Vital Signs 05/10/21 05/10/21 05/10/21 13:22 13:30 13:45 Pulse Rate 109 H 105 H 105 H Respiratory 32 H Rate Blood Pressure 106/63 O2 Sat by Pulse 91 L Oximetry 05/10/21 05/10/21 13:47 15:13 Pulse Rate 115 H 104 H Respiratory 28 H 24 Rate Blood Pressure 106/70 105/68 O2 Sat by Pulse 95 98 Oximetry - Reevaluation(s) Reevaluation #1: 05/10/21 14:16 Reevaluation patient reveals increased aeration improvement in lung sounds. Clinical evidence of dehydration as well as laboratory Reevaluation #2: 05/10/21 16:14 Dictation continues to improve with fluids the patient sought to have possible aspiration will be placed on antibiotics. Medical Decision Making - Medical Decision Making I did discuss the findings with the patient and Dr. Phelps patient will be admitted place an IV antibiotics and fluids. Lactic acid was elevated this is thought to be more in the basis of IM depletion intravascularly then secondary to infection. - Lab Data Result diagrams: 05/10/21 13:32 05/10/21 13:32 Lab Results 05/10/21 05/10/21 05/10/21 Range/Units 13:32 13:32 13:32 WBC 9.7 (3.8-10.6) k/uL RBC 4.95 (4.30-5.90) m/uL Hgb 14.4 (13.0-17.5) gm/dL Hct 45.3 (39.0-53.0) % MCV 91.6 (80.0-100.0) fL MCH 29.1 (25.0-35.0) pg MCHC 31.7 (31.0-37.0) g/dL RDW 15.4 (11.5-15.5) % Plt Count 243 (150-450) k/uL MPV 9.8 Neutrophils % 85 % Lymphocytes % 8 % Monocytes % 4 % Eosinophils % 2 % Basophils % 0 % Neutrophils # 8.2 H (1.3-7.7) k/uL Lymphocytes # 0.7 L (1.0-4.8) k/uL Monocytes # 0.4 (0-1.0) k/uL Eosinophils # 0.2 (0-0.7) k/uL Basophils # 0.0 (0-0.2) k/uL Hypochromasia Slight PT 11.2 (9.0-12.0) sec INR 1.0 (<1.2) APTT 27.5 (22.0-30.0) sec D-Dimer 1.07 H (<0.60) mg/L FEU Sodium 148 H (137-145) mmol/L Potassium 3.9 (3.5-5.1) mmol/L Chloride 113 H (98-107) mmol/L Carbon Dioxide 21 L (22-30) mmol/L Anion Gap 14 mmol/L BUN 58 H (9-20) mg/dL Creatinine 1.11 (0.66-1.25) mg/dL Est GFR (CKD-EPI)AfAm 69 (>60 ml/min/1.73 sqM) Est GFR (CKD-EPI)NonAf 60 (>60 ml/min/1.73 sqM) Glucose 173 H (74-99) mg/dL Lactic Ac Sepsis Rflx Plasma Lactic Acid Justino (0.7-2.0) mmol/L Calcium 9.4 (8.4-10.2) mg/dL Magnesium 2.3 (1.6-2.3) mg/dL Total Bilirubin 0.6 (0.2-1.3) mg/dL AST 18 (17-59) U/L ALT 21 (4-49) U/L Alkaline Phosphatase 84 (38-126) U/L Troponin I (0.000-0.034) ng/mL NT-Pro-B Natriuret Pep pg/mL Total Protein 6.8 (6.3-8.2) g/dL Albumin 3.5 (3.5-5.0) g/dL Coronavirus (PCR) (Not Detectd) Influenza Type A RNA (Not Detectd) Influenza Type B (PCR) (Not Detectd) 05/10/21 05/10/21 05/10/21 Range/Units 13:32 13:32 13:32 WBC (3.8-10.6) k/uL RBC (4.30-5.90) m/uL Hgb (13.0-17.5) gm/dL Hct (39.0-53.0) % MCV (80.0-100.0) fL MCH (25.0-35.0) pg MCHC (31.0-37.0) g/dL RDW (11.5-15.5) % Plt Count (150-450) k/uL MPV Neutrophils % % Lymphocytes % % Monocytes % % Eosinophils % % Basophils % % Neutrophils # (1.3-7.7) k/uL Lymphocytes # (1.0-4.8) k/uL Monocytes # (0-1.0) k/uL Eosinophils # (0-0.7) k/uL Basophils # (0-0.2) k/uL Hypochromasia PT (9.0-12.0) sec INR (<1.2) APTT (22.0-30.0) sec D-Dimer (<0.60) mg/L FEU Sodium (137-145) mmol/L Potassium (3.5-5.1) mmol/L Chloride (98-107) mmol/L Carbon Dioxide (22-30) mmol/L Anion Gap mmol/L BUN (9-20) mg/dL Creatinine (0.66-1.25) mg/dL Est GFR (CKD-EPI)AfAm (>60 ml/min/1.73 sqM) Est GFR (CKD-EPI)NonAf (>60 ml/min/1.73 sqM) Glucose (74-99) mg/dL Lactic Ac Sepsis Rflx Plasma Lactic Acid Justino 4.3 H* (0.7-2.0) mmol/L Calcium (8.4-10.2) mg/dL Magnesium (1.6-2.3) mg/dL Total Bilirubin (0.2-1.3) mg/dL AST (17-59) U/L ALT (4-49) U/L Alkaline Phosphatase (38-126) U/L Troponin I <0.012 (0.000-0.034) ng/mL NT-Pro-B Natriuret Pep 3100 pg/mL Total Protein (6.3-8.2) g/dL Albumin (3.5-5.0) g/dL Coronavirus (PCR) (Not Detectd) Influenza Type A RNA (Not Detectd) Influenza Type B (PCR) (Not Detectd) 05/10/21 05/10/21 05/10/21 Range/Units 13:32 13:32 14:03 WBC (3.8-10.6) k/uL RBC (4.30-5.90) m/uL Hgb (13.0-17.5) gm/dL Hct (39.0-53.0) % MCV (80.0-100.0) fL MCH (25.0-35.0) pg MCHC (31.0-37.0) g/dL RDW (11.5-15.5) % Plt Count (150-450) k/uL MPV Neutrophils % % Lymphocytes % % Monocytes % % Eosinophils % % Basophils % % Neutrophils # (1.3-7.7) k/uL Lymphocytes # (1.0-4.8) k/uL Monocytes # (0-1.0) k/uL Eosinophils # (0-0.7) k/uL Basophils # (0-0.2) k/uL Hypochromasia PT (9.0-12.0) sec INR (<1.2) APTT (22.0-30.0) sec D-Dimer (<0.60) mg/L FEU Sodium (137-145) mmol/L Potassium (3.5-5.1) mmol/L Chloride (98-107) mmol/L Carbon Dioxide (22-30) mmol/L Anion Gap mmol/L BUN (9-20) mg/dL Creatinine (0.66-1.25) mg/dL Est GFR (CKD-EPI)AfAm (>60 ml/min/1.73 sqM) Est GFR (CKD-EPI)NonAf (>60 ml/min/1.73 sqM) Glucose (74-99) mg/dL Lactic Ac Sepsis Rflx Y Plasma Lactic Acid Justino (0.7-2.0) mmol/L Calcium (8.4-10.2) mg/dL Magnesium (1.6-2.3) mg/dL Total Bilirubin (0.2-1.3) mg/dL AST (17-59) U/L ALT (4-49) U/L Alkaline Phosphatase (38-126) U/L Troponin I (0.000-0.034) ng/mL NT-Pro-B Natriuret Pep pg/mL Total Protein (6.3-8.2) g/dL Albumin (3.5-5.0) g/dL Coronavirus (PCR) Not Detected (Not Detectd) Influenza Type A RNA Not Detected (Not Detectd) Influenza Type B (PCR) Not Detected (Not Detectd) - EKG Data -: EKG Interpreted by Me EKG Comments: Atrial fibrillation 7 heart rate QRS 142 QT/QTC 350/378 red bundle-branch block pattern - Radiology Data Radiology results: report reviewed (Imaging reviewed evidence of bilateral infiltrate no PE seen), image reviewed Critical Care Time Critical Care Time: Yes Total Critical Care Time: 37 Critical Care Time: Critical care time includes initial presentation with history physical labs x- rays multiple reevaluation the patient discussed with paramedics upon arrival old chart review and discussion with the admitting physician admission orders neck mentation the above Disposition Clinical Impression: Bilateral pneumonia, Dehydration, Elevated lactic acid level, Bronchospasm, acute, Hypoxemia, Hypotensive episode Disposition: ADMITTED IP TO THIS HOSP Condition: Fair Referrals: Paul Damian MD [Primary Care Provider] - 1-2 days
[2021-05-10 14:03] LABS: Albumin 3.5 g/dL (3.5-5.0); Calcium 9.4 mg/dL (8.4-10.2); Magnesium 2.3 mg/dL (1.6-2.3); Potassium 3.9 mmol/L (3.5-5.1); Total Bilirubin 0.6 mg/dL (0.2-1.3); Total Protein 6.8 g/dL (6.3-8.2)
[2021-05-10] MEDS ORDERED: SODIUM CHLORIDE 0.9% 1,000 ML IV STA ×2 (14:16)
[2021-05-10 14:17] LABS: Partial Thromboplastin Time 27.5 sec (22.0-30.0); Prothrombin Time 11.2 sec (9.0-12.0)
[2021-05-10 14:20] LABS: Basophils % (A) 0 %; Eosinophils # (A) 0.2 k/uL (0-0.7); Eosinophils % (A) 2 %; HCT 45.3 % (39.0-53.0); HGB 14.4 gm/dL (13.0-17.5); Hypochromasia Slight; Lymphocytes # (A) 0.7 k/uL (1.0-4.8); Lymphocytes % (A) 8 %; MCH 29.1 pg (25.0-35.0); MCHC 31.7 g/dL (31.0-37.0); MCV 91.6 fL (80.0-100.0); Mean Platelet Volume 9.8; Monocytes # (A) 0.4 k/uL (0-1.0); Monocytes % (A) 4 %; Neutrophils # (A) 8.2 k/uL (1.3-7.7); Neutrophils % (A) 85 %; Platelet Count 243 k/uL (150-450); RBC 4.95 m/uL (4.30-5.90); RDW 15.4 % (11.5-15.5); WBC 9.7 k/uL (3.8-10.6)
--- NOTE | 2021-05-10 14:20 | XR ---
EXAMINATION TYPE: XR chest 1V portable DATE OF EXAM: 05/10/2021 COMPARISON: Chest x-ray dated 07/28/2020 HISTORY: Difficulty breathing TECHNIQUE: frontal view of the chest is obtained on 2 images. FINDINGS: Patchy densities present at the lung bases. Patient is rotated. No evident pneumothorax or pleural effusion. Cardiac mediastinal silhouette is stable. There is thoracic spondylosis. IMPRESSION: Correlate for basilar pneumonia. Follow-up is recommended.
[2021-05-10] MEDS ORDERED: PIPERACILLIN-TAZOBACTAM 3.375 GM in SODIUM CHLORIDE 0.9% 100 ML IVPB STA (15:03)
--- NOTE | 2021-05-10 15:25 | CT ---
EXAMINATION TYPE: CT angio chest DATE OF EXAM: 05/10/2021 COMPARISON: NONE HISTORY: Elevated d-dimer CT DLP: 619.1 mGycm. Automated Exposure Control for Dose Reduction was Utilized. CONTRAST: CTA scan of the thorax is performed with IV Contrast, patient injected with 80 mL of Isovue 370, pulm onary embolism protocol. MIP Images are created on CT scanner and reviewed. FINDINGS: LUNGS: Suboptimal as patient unable to hold breath. Multifocal areas of groundglass opacity bilateral ly greatest in the lower lungs. No pleural effusion or pneumothorax seen bilaterally. MEDIASTINUM: There is suboptimal study with most dense contrast within the SVC. Some contrast opacifi cation of the thoracic aorta without aneurysm or dissection. No central pulmonary embolism. Some hete rogeneity and poor opacification of peripheral vessels makes evaluation suboptimal for segment on sub segmental PE. There are no prominent left hilar lymph nodes. No cardiomegaly is seen. Tiny pericard ial effusion anterior inferior aspect. Moderate biatrial dilatation. Mild calcification at level of t he aortic valve. OTHER: Subcentimeter low dense lesion axial image 116. Simple appearing 2.2 cm thin-walled cyst media lly right kidney axial image 136. Scoliotic curvature with moderate to severe multilevel spurring in the thoracic spine. IMPRESSION: 1. Suboptimal study without central pulmonary embolism. Cannot entirely exclude segmental and subsegm ental pulmonary emboli on this exam. 2. Bilateral multifocal groundglass opacities in the mid to lower lungs consistent with acute infecti ous process, correlate to exclude covid-19 infection.
[2021-05-10] MEDS ORDERED: SODIUM CHLORIDE 0.9% 500 ML 500 ML IV STA (15:39)
[2021-05-10] MEDS ORDERED: IPRATROPIUM-ALBUTEROL 3 ML NEB INHALATION PRN (16:17)
[2021-05-10] MEDS ORDERED: PNEUMONIA PROTOCOL UTILIZED 1 EACH MISC PO PRN (16:17)
[2021-05-10] MEDS ORDERED: NA PHOS,M-B/NA PHOS,DI-BA 133 ML ENEMA RECTAL PRN (16:24)
[2021-05-10] MEDS ORDERED: bisacodyL 10 MG SUPP RECTAL PRN (16:24)
[2021-05-10] MEDS ORDERED: HYDROcodone/APAP 5-325MG 1 EACH TAB PO PRN (16:24)
[2021-05-10] MEDS ORDERED: MAGNESIUM HYDROXIDE 2,400 MG/10 ML CUP PO PRN (16:24)
[2021-05-10] MEDS ORDERED: NON FORMULARY DRUG (Liquacel 30 ML) PO SCH (17:00)
[2021-05-10] MEDS ORDERED: NON FORMULARY DRUG (Glucerna Shake 1 CAN Ml) PO SCH (17:00)
--- NOTE | 2021-05-10 18:03 | HP ---
HISTORY AND PHYSICAL This is an 85-year-old white male admitted for increasing hypoxemic respiratory failure and shortness of breath. He is saturating 86 on room air. He went up to 98 on CPAP. He possibly aspirated at the skilled nursing. He was sent here for aspiration pneumonia and worsening and declining status. He is NO CPR OR ADVANCED LIFE SUPPORT. He is currently on high doses of oxygen for aspiration pneumonia. He was given Zosyn, azithromycin and Levaquin. Home medicines reviewed. Past medical history reviewed. Review of systems reviewed. PHYSICAL EXAMINATION: He looks weak, cachectic. Dry skin turgor. Dry mucous membranes. He is alert and oriented, giving appropriate answers. Cardiovascular S1-S2. Lungs reveal scattered rhonchi and wheeze. GI soft. Cranial nerves are intact. Psych flat mood and affect. He is status post amputation of the right leg. Pulse is 105 to 109, blood pressure 100 over 60s, 91 on room air. ASSESSMENT: 1. Aspiration pneumonia. 2. Recent COVID pneumonia which still persists on CT scan with some possible pulmonary fibrosis. Broad-spectrum antibiotics are given. He is dehydrated with lactic acidosis. We are going to give him fluids and infection antibiotics. Prognosis guarded. Get Dr. Linares and Dr. Mccloud involved. MMODL / IJN: [id number] /
[2021-05-10] MEDS: metFORMIN 500 MG TAB PO SCH ×2 (19:05→19:06)
[2021-05-10] MEDS: APIXABAN 2.5 MG TABLET PO SCH (19:05)
[2021-05-10] MEDS: METOPROLOL TARTRATE 25 MG TAB PO SCH (19:06)
[2021-05-10] MEDS: methylPREDNISolone SOD SUCCI 40 MG/ML 1 ML VIAL IV SCH (19:21)
[2021-05-10] MEDS: SYMBICORT 160-4.5 MCG INHALER INHALATION SCH (19:26)
[2021-05-10] MEDS: AZITHROMYCIN 500 MG in SODIUM CHLORIDE 0.9% 250 ML IVPB SCH (22:00)
[2021-05-10 22:30] LABS: Glucose,Whole Blood 189 mg/dL (75-99)
[2021-05-10] MEDS: INSULIN ASPART (NovoLOG) 100 UNIT/ML VIAL SQ SCH ×2 (23:41→23:52)
[2021-05-10] MEDS: guaiFENesin 600 MG TABLET.ER PO SCH (23:51)
[2021-05-10] MEDS: MENTHOL-ZINC OXIDE OINT 113 GM TUBE TOPICAL SCH (23:53)
[2021-05-10] MEDS: lisinopriL 10 MG TAB PO SCH (23:53)
[2021-05-10] MEDS: SENNOSIDES-DOCUSATE SODIUM 1 EACH TAB PO SCH (23:53)
[2021-05-11] MEDS: PIPERACILLIN-TAZOBACTAM 3.375 GM in SODIUM CHLORIDE 0.9% 100 ML IVPB SCH ×4 (00:55→23:37)
[2021-05-11] MEDS: methylPREDNISolone SOD SUCCI 40 MG/ML 1 ML VIAL IV SCH ×3 (03:00→16:40)
[2021-05-11 06:12] LABS: Glucose,Whole Blood 164 mg/dL (75-99)
[2021-05-11] MEDS: INSULIN ASPART (NovoLOG) 100 UNIT/ML VIAL SQ SCH ×4 (06:15→20:21)
[2021-05-11] MEDS: SYMBICORT 160-4.5 MCG INHALER INHALATION SCH ×2 (07:47→21:06)
[2021-05-11] MEDS: guaiFENesin 600 MG TABLET.ER PO SCH ×2 (08:00→19:33)
[2021-05-11] MEDS: FUROSEMIDE 20 MG TAB PO SCH (08:00)
[2021-05-11] MEDS: APIXABAN 2.5 MG TABLET PO SCH ×2 (08:00→15:20)
[2021-05-11] MEDS: METOPROLOL TARTRATE 25 MG TAB PO SCH ×2 (08:00→15:20)
[2021-05-11] MEDS: TAMSULOSIN 0.4 MG CAP.ER.24H PO SCH (08:00)
--- NOTE | 2021-05-11 08:17 | XR ---
EXAMINATION TYPE: XR chest 2V DATE OF EXAM: 05/11/2021 COMPARISON: Chest x-ray 05/10/2021 HISTORY: Pneumonia TECHNIQUE: Frontal and lateral views of the chest are obtained. FINDINGS: There are overlying leads. No evident pneumothorax or pleural effusion. Patient is rotated . Cardiac mediastinal silhouette is stable. Airspace disease present bilaterally shows a similar appe arance. IMPRESSION: Correlate for pneumonia.
[2021-05-11] MEDS ORDERED: NON FORMULARY DRUG (Juven Packet 1 PACKET Packet) PO SCH (10:00)
[2021-05-11] MEDS: metFORMIN 500 MG TAB PO SCH ×2 (10:35→15:20)
[2021-05-11] MEDS: NON FORMULARY DRUG (Empagliflozin [Jardiance] 25 MG Tablet) PO SCH (10:36)
[2021-05-11] MEDS: dexAMETHasone 4 MG TAB PO SCH (11:45)
[2021-05-11] MEDS ORDERED: LEVOFLOXACIN 500 MG TAB PO SCH (12:00)
--- NOTE | 2021-05-11 12:14 | P.CNPUL ---
History of Present Illness Consult date: 05/11/21 Reason for consult: dyspnea, cough, hypoxemia Chief complaint: Shortness of breath History of present illness: Patient is a 85-year-old male came into the hospital for evaluation of shortness of breath along with cough and hypoxia in the remaining sensation in the throat on arrival his saturation was is just 86% at room air, with supplemental oxygen improved to 89% however require CPAP went up to 91%. Patient is a care home resident thought to having aspiration as written as by the staff sent for evaluation. Patient cannot give a detailed history he is alert oriented 1 only he is no cord by advanced directive. His CBC is within normal limit, d-dimer is 1.07, slightly hypernatremic with sodium 148, BUN/creatinine 58/1.11, glucose 173, influenza A and B are negative, COVID-19 is negative. Patient's chest x- ray on arrival by basilar infiltrate are present suggestive of aspiration pneumonia, patient has been started on IV Zosyn, computed tomography scan of the chest negative for pulmonary embolism, bilateral multifocal groundglass infiltrate are seen. Follow-up chest x-ray done earlier this morning not much significantly change patient currently undergoing swallowing evaluation and probably will require alternative means. 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 Date of last positivie culture/infection: 01/29/21 MDRO Source:: Right Heel Wound Past Surgical History: Hernia Repair, Orthopedic Surgery Additional Past Surgical History / Comment(s): Bilateral total hip arthroplasty, TURP, umbilical and R inguinal hernia repairs, bilateral cataract removals/lens implants, teeth extraction, right above the knee amputation Past Anesthesia/Blood Transfusion Reactions: No Reported Reaction Past Psychological History: No Psychological Hx Reported Additional Psychological History / Comment(s): Pt resides at [facility] Smoking Status: Former smoker Past Alcohol Use History: None Reported Additional Past Alcohol Use History / Comment(s): Patient is a lifelong nonsmoker- states he smoked cigars for a short time. He denies any alcohol use. Past Drug Use History: None Reported - Past Family History Mother History Unknown: Yes Additional Family Medical History / Comment(s): Mother at age 70 from unknown cause. Father Family Medical History: Asthma Additional Family Medical History / Comment(s): Father from unknown cause but did have asthma. Sister(s) Family Medical History: Vascular Disorder Additional Family Medical History / Comment(s): He has one sister that from an aneurysm. Medications and Allergies Home Medications Medication Instructions Recorded Confirmed Type Acetaminophen [Tylenol] 650 mg PO Q4H PRN 01/26/21 05/10/21 History Apixaban [Eliquis] 2.5 mg PO BID@0800,1700 01/26/21 05/10/21 History Budesonide/Formoterol Fumarate 2 puff INHALATION RT-BID 01/26/21 05/10/21 History [Symbicort 160-4.5 Mcg Inhaler] Empagliflozin [Jardiance] 25 mg PO DAILY@0800 01/26/21 05/10/21 History HYDROcodone/APAP 5-325MG [[place] 1 tab PO Q6H PRN 01/26/21 05/10/21 History 5-325] INSULIN ASPART (NovoLOG) [NovoLOG See Protocol SQ TID@0700,1100,1630 01/26/21 05/10/21 History (formulary)] Ipratropium-Albuterol Nebulize 3 ml INHALATION RT-Q6H 01/26/21 05/10/21 History [Duoneb 0.5 mg-3 mg/3 ml Soln] Liquacel 30 ml PO BID@0800,1700 01/26/21 05/10/21 History Magnesium Hydroxide [Milk of 7,200 mg PO DAILY PRN 01/26/21 05/10/21 History Magnesia Concentrate] Metoprolol Tartrate [Lopressor] 25 mg PO BID@0800,1700 01/26/21 05/10/21 History guaiFENesin [Mucinex] 600 mg PO BID@0800,2100 01/26/21 05/10/21 History lisinopriL [Zestril] 10 mg PO HS@209901/26/21 05/10/21 History metFORMIN HCL [Glucophage] 500 mg PO BID@0800,1700 01/26/21 05/10/21 History Dexamethasone [Decadron] 4 mg PO DAILY@1200 05/10/21 05/10/21 History Furosemide [Lasix] 20 mg PO DAILY@0800 05/10/21 05/10/21 History Glucerna Shake 237 ml PO TID@0800,1200,1700 05/10/21 05/10/21 History Brian Packet 1 packet PO BID@1000,1500 05/10/21 05/10/21 History Levofloxacin [Levaquin] 500 mg PO DAILY@1200 05/10/21 05/10/21 History Magic Butt Paste 1 applic TOPICAL BID 05/10/21 05/10/21 History Na Phos,M-B/Na Phos,Di-Ba [Fleet 133 ml RECTAL DAILY PRN 05/10/21 05/10/21 History Adult] Sennosides/Docusate Sodium [Senna 1 cap PO HS 05/10/21 05/10/21 History Plus 8.6-50 mg Softgel] Tamsulosin HCl [Flomax] 0.4 mg PO DAILY@0800 05/10/21 05/10/21 History bisacodyL [Dulcolax] 10 mg RECTAL DAILY PRN 05/10/21 05/10/21 History Allergies Allergy/AdvReac Type Severity Reaction Status Date / Time No Known Allergies Allergy Verified 05/10/21 13:17 Physical Exam Vitals: Vital Signs Temp Pulse Pulse Resp BP BP Pulse Ox 05/11/21 08:00 98.4 F 107 H 17 106/58 90 L 05/11/21 07:48 94 L 05/11/21 04:00 98.1 F 101 H 17 111/62 95 05/11/21 02:00 106 H 17 05/11/21 00:00 97.9 F 106 H 17 126/65 96 05/10/21 22:25 104 H 22 112/84 94 L 05/10/21 19:12 98.1 F 99 18 102/60 94 L 05/10/21 16:46 97.5 F L 101 H 18 102/66 95 05/10/21 15:13 104 H 24 105/68 98 05/10/21 13:47 115 H 28 H 106/70 95 05/10/21 13:45 105 H 05/10/21 13:30 105 H 05/10/21 13:22 109 H 32 H 106/63 91 L Intake and Output 05/10/21 05/11/21 05/11/21 22:59 06:59 14:59 Intake Total 0 Balance 0 Intake: Oral 0 Other: Voiding Method Diaper Diaper # Voids 4 2 Weight 76.204 kg - Constitutional General appearance: cooperative, disheveled - EENT Eyes: EOMI, PERRLA Ears: bilateral: normal - Neck Neck: normal ROM Carotids: bilateral: upstroke normal Thyroid: bilateral: normal size - Respiratory Respiratory: bilateral: diminished, rales - Cardiovascular Rhythm: irregularly irregular Heart sounds: normal: S1, S2 - Gastrointestinal General gastrointestinal: normal bowel sounds - Integumentary Integumentary: decreased turgor - Musculoskeletal Musculoskeletal: generalized weakness Results - Laboratory Findings CBC and BMP: 05/10/21 13:32 05/10/21 13:32 PT/INR, D-dimer PT 11.2 sec (9.0-12.0) 05/10/21 13:32 INR 1.0 (<1.2) 05/10/21 13:32 D-Dimer 1.07 mg/L FEU (<0.60) H 05/10/21 13:32 Abnormal lab findings: Abnormal Labs 05/10/21 05/10/21 05/10/21 13:32 13:32 13:32 Neutrophils # 8.2 H Lymphocytes # 0.7 L D-Dimer 1.07 H Sodium 148 H Chloride 113 H Carbon Dioxide 21 L BUN 58 H Glucose 173 H POC Glucose (mg/dL) Plasma Lactic Acid Justino 05/10/21 05/10/21 05/10/21 13:32 16:41 19:46 Neutrophils # Lymphocytes # D-Dimer Sodium Chloride Carbon Dioxide BUN Glucose POC Glucose (mg/dL) Plasma Lactic Acid Justino 4.3 H* 3.4 H* 2.2 H* 05/10/21 05/11/21 22:29 06:11 Neutrophils # Lymphocytes # D-Dimer Sodium Chloride Carbon Dioxide BUN Glucose POC Glucose (mg/dL) 189 H 164 H Plasma Lactic Acid Justino - Diagnostic Findings Chest x-ray: report reviewed, image reviewed CT scan - chest: report reviewed, image reviewed (Finding as noted above) Assessment and Plan Assessment: Acute hypoxic respiratory failure Bilateral aspiration pneumonia High risk of recurrent aspiration Chronic atrial fibrillation on Ditropan her anticoagulant History of multiple strokes in the past Type 2 diabetes mellitus Hypertension hypertensive cardiovascular disease COPD Plan: Continue broad-spectrum antibiotics with Zosyn Supplemental oxygen with BiPAP each night and when necessary during day Aspiration precautions Swallow evaluation may need PEG tube Continue steroids bronchodilators DVT and peptic ulcer disease prophylaxis Further plan of care as per clinical response Time with Patient: Greater than 30
[2021-05-11 12:27] LABS: Glucose,Whole Blood 184 mg/dL (75-99)
--- NOTE | 2021-05-11 12:54 | FL ---
Modified barium swallow. HISTORY: Dysphagia. Modified barium swallow was performed with the department of speech pathology. The patient was prese nted with various consistencies of barium. There is evidence for aspiration with nectar thick barium. Full report is to follow from the departme nt of speech pathology. Impression: Aspiration
[2021-05-11] MEDS: MENTHOL-ZINC OXIDE OINT 113 GM TUBE TOPICAL SCH ×2 (12:59→20:22)
[2021-05-11 14:06] VITALS: BMI 24.0
[2021-05-11] MEDS: AZITHROMYCIN 500 MG in SODIUM CHLORIDE 0.9% 250 ML IVPB SCH (15:00)
[2021-05-11] MEDS: LEVOFLOXACIN 500MG-D5W PMX 500 MG in DEXTROSE/WATER 1 100ML.BAG IVPB SCH (16:00)
[2021-05-11 16:31] LABS: Glucose,Whole Blood 174 mg/dL (75-99)
[2021-05-11] MEDS: SENNOSIDES-DOCUSATE SODIUM 1 EACH TAB PO SCH (19:33)
[2021-05-11] MEDS: lisinopriL 10 MG TAB PO SCH (19:33)
[2021-05-11 20:19] LABS: Glucose,Whole Blood 161 mg/dL (75-99)
--- NOTE | 2021-05-11 23:25 | P.CONS ---
History of Present Illness - Reason for Consult Consult date: 05/11/21 Aspiration pneumonia Requesting physician: Paul Damian - Chief Complaint Shortness of breath x one day - History of Present Illness Patient is 85-year-old male presenting to the ER yesterday afternoon for evaluation of increasing shortness of breath and this patient EMS was called and the patient was not able to clear his secretion arrival of the EMS the roman ent was noticed to be dyspneic and did have gurgling sounds in the lungs bilaterally which was also hypoxic patient was subsequently brought into the ER on arrival to the ER patient was afebrile mildly hypoxic and is currently on 2 L nasal cannula patient did have a normal white count creatinine was normal hanks PCR was negative blood cultures which are currently pending patient did have a chest x-ray correlate for basilar pneumonia CT angiogram of the chest suboptimal studies bilateral multifocal groundglass opacities patient was started on Zosyn Zithromax subsequent Levaquin was added infectious disease was consulted for further management of antibiotic therapy patient at time evaluation was slightly lethargic though arousable but not with good historian so most information has been obtained from review the chart Review of Systems Positive points has been mentioned in HPI complete review could not be obtained because of his underlying mental status 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 MDRO Source:: Right Heel Wound Past Surgical History: Hernia Repair, Orthopedic Surgery Additional Past Surgical History / Comment(s): Bilateral total hip arthroplasty, TURP, umbilical and R inguinal hernia repairs, bilateral cataract removals/lens implants, teeth extraction, right above the knee amputation Past Anesthesia/Blood Transfusion Reactions: No Reported Reaction Past Psychological History: No Psychological Hx Reported Additional Psychological History / Comment(s): Pt resides at [facility] Smoking Status: Former smoker Past Alcohol Use History: None Reported Additional Past Alcohol Use History / Comment(s): Patient is a lifelong nonsmoker- states he smoked cigars for a short time. He denies any alcohol use. Past Drug Use History: None Reported - Past Family History Mother History Unknown: Yes Additional Family Medical History / Comment(s): Mother at age 70 from unknown cause. Father Family Medical History: Asthma Additional Family Medical History / Comment(s): Father from unknown cause but did have asthma. Sister(s) Family Medical History: Vascular Disorder Additional Family Medical History / Comment(s): He has one sister that from an aneurysm. Medications and Allergies Home Medications Medication Instructions Recorded Confirmed Type Acetaminophen [Tylenol] 650 mg PO Q4H PRN 01/26/21 05/10/21 History Apixaban [Eliquis] 2.5 mg PO BID@0800,1700 01/26/21 05/10/21 History Budesonide/Formoterol Fumarate 2 puff INHALATION RT-BID 01/26/21 05/10/21 History [Symbicort 160-4.5 Mcg Inhaler] Empagliflozin [Jardiance] 25 mg PO DAILY@0800 01/26/21 05/10/21 History HYDROcodone/APAP 5-325MG [[place] 1 tab PO Q6H PRN 01/26/21 05/10/21 History 5-325] INSULIN ASPART (NovoLOG) [NovoLOG See Protocol SQ TID@0700,1100,1630 01/26/21 05/10/21 History (formulary)] Ipratropium-Albuterol Nebulize 3 ml INHALATION RT-Q6H 01/26/21 05/10/21 History [Duoneb 0.5 mg-3 mg/3 ml Soln] Liquacel 30 ml PO BID@0800,1700 01/26/21 05/10/21 History Magnesium Hydroxide [Milk of 7,200 mg PO DAILY PRN 01/26/21 05/10/21 History Magnesia Concentrate] Metoprolol Tartrate [Lopressor] 25 mg PO BID@0800,1700 01/26/21 05/10/21 History guaiFENesin [Mucinex] 600 mg PO BID@0800,2100 01/26/21 05/10/21 History lisinopriL [Zestril] 10 mg PO HS@209901/26/21 05/10/21 History metFORMIN HCL [Glucophage] 500 mg PO BID@0800,1700 01/26/21 05/10/21 History Dexamethasone [Decadron] 4 mg PO DAILY@1200 03/01/22 03/01/22 History Furosemide [Lasix] 20 mg PO DAILY@0800 05/10/21 05/10/21 History Glucerna Shake 237 ml PO TID@0800,1200,1700 05/10/21 05/10/21 History Brian Packet 1 packet PO BID@1000,1500 05/10/21 05/10/21 History Levofloxacin [Levaquin] 500 mg PO DAILY@1200 05/10/21 05/10/21 History Magic Butt Paste 1 applic TOPICAL BID 05/10/21 05/10/21 History Na Phos,M-B/Na Phos,Di-Ba [Fleet 133 ml RECTAL DAILY PRN 05/10/21 05/10/21 History Adult] Sennosides/Docusate Sodium [Senna 1 cap PO HS 05/10/21 05/10/21 History Plus 8.6-50 mg Softgel] Tamsulosin HCl [Flomax] 0.4 mg PO DAILY@0800 05/10/21 05/10/21 History bisacodyL [Dulcolax] 10 mg RECTAL DAILY PRN 05/10/21 05/10/21 History Allergies Allergy/AdvReac Type Severity Reaction Status Date / Time No Known Allergies Allergy Verified 05/10/21 13:17 Physical Exam Vitals: Vital Signs Temp Pulse Pulse Resp BP BP Pulse Ox 05/11/21 07:48 94 L 05/11/21 04:00 98.1 F 101 H 17 111/62 95 05/11/21 02:00 106 H 17 05/11/21 00:00 97.9 F 106 H 17 126/65 96 05/10/21 22:25 104 H 22 112/84 94 L 05/10/21 19:12 98.1 F 99 18 102/60 94 L 05/10/21 16:46 97.5 F L 101 H 18 102/66 95 05/10/21 15:13 104 H 24 105/68 98 05/10/21 13:47 115 H 28 H 106/70 95 05/10/21 13:45 105 H 05/10/21 13:30 105 H 05/10/21 13:22 109 H 32 H 106/63 91 L Intake and Output 05/10/21 05/11/21 05/11/21 22:59 06:59 14:59 Intake Total 0 Balance 0 Intake: Oral 0 Other: Voiding Method Diaper # Voids 4 Weight 76.204 kg GENERAL DESCRIPTION: An elderly male lying in bed, no distress. No tachypnea or accessory muscle of respiration use. HEENT: Shows Pallor , no scleral icterus. Oral mucous membrane is dry. No phary ngeal erythema or thrush NECK: Trachea central, no thyromegaly. LUNGS: Unlabored breathing. Coarse vessels bilaterally. No wheeze or crackle. HEART: S1, S2, regular rate and rhythm. No loud murmur ABDOMEN: Soft, no tenderness , guarding or rigidity, no organomegaly EXTREMITIES: No edema of feet. Right heel did have more necrotic pressure ulcer SKIN: No rash, no masses palpable. NEUROLOGICAL: The patient is lethargic though arousable however orientation could not be determined Results CBC & Chem 7: 05/10/21 13:32 05/10/21 13:32 Labs: Abnormal Lab Results - Last 24 Hours (Table) 05/10/21 05/10/21 05/10/21 Range/Units 13:32 13:32 13:32 Neutrophils # 8.2 H (1.3-7.7) k/uL Lymphocytes # 0.7 L (1.0-4.8) k/uL D-Dimer 1.07 H (<0.60) mg/L FEU Sodium 148 H (137-145) mmol/L Chloride 113 H (98-107) mmol/L Carbon Dioxide 21 L (22-30) mmol/L BUN 58 H (9-20) mg/dL Glucose 173 H (74-99) mg/dL POC Glucose (mg/dL) (75-99) mg/dL Plasma Lactic Acid Justino (0.7-2.0) mmol/L 05/10/21 05/10/21 05/10/21 Range/Units 13:32 16:41 19:46 Neutrophils # (1.3-7.7) k/uL Lymphocytes # (1.0-4.8) k/uL D-Dimer (<0.60) mg/L FEU Sodium (137-145) mmol/L Chloride (98-107) mmol/L Carbon Dioxide (22-30) mmol/L BUN (9-20) mg/dL Glucose (74-99) mg/dL POC Glucose (mg/dL) (75-99) mg/dL Plasma Lactic Acid Justino 4.3 H* 3.4 H* 2.2 H* (0.7-2.0) mmol/L 05/10/21 05/11/21 Range/Units 22:29 06:11 Neutrophils # (1.3-7.7) k/uL Lymphocytes # (1.0-4.8) k/uL D-Dimer (<0.60) mg/L FEU Sodium (137-145) mmol/L Chloride (98-107) mmol/L Carbon Dioxide (22-30) mmol/L BUN (9-20) mg/dL Glucose (74-99) mg/dL POC Glucose (mg/dL) 189 H 164 H (75-99) mg/dL Plasma Lactic Acid Justino (0.7-2.0) mmol/L Assessment and Plan (1) Bilateral pneumonia Current Visit: Yes Status: Acute Code(s): J18.9 - PNEUMONIA, UNSPECIFIED ORGANISM SNOMED Code(s): 582677274 Plan: 1patient presented to hospital with increasing shortness of breath and hypoxemia with a chest x-ray and CT has been concerning for bibasilar pneumonia question of aspiration etiology in this patient did have a swallow evaluation and concerning for aspiration. 2patient did have unstageable pressure ulcer of the right heel area but no cellulitis. 3Zosyn three-point esophagram should provide adequate biotic coverage 4try to obtain a sputum for Gram stain culture 5keep the right heel area of the pressure We will follow on clinical condition and cultures to further adjust medication if needed Thank you for this consultation will follow this patient along with you Time with Patient: Greater than 30
[2021-05-12] MEDS: methylPREDNISolone SOD SUCCI 40 MG/ML 1 ML VIAL IV SCH ×2 (02:16→09:46)
[2021-05-12 03:31] VITALS: RESP 18
--- NOTE | 2021-05-12 04:37 | PN ---
PROGRESS NOTE 85-year-old white male who the nurse ordered a swallow eval on her room own today which shows poor swallowing ability. She did contact the family and convinced them to go into hospice. All this was done without my consent. So hospice has been consulted due to the family's wishes after I discussed with him in the afternoon as they were afraid Dr. Carpenter might be doing amputation of his other leg down the road and they do not want him to have a PEG tube. Blood pressure is 106/84, temp 97 to 98, heart rate low 100s, blood pressure is 110 to 140s, currently down to 2 L of oxygen. We will get a hospice consult. Continue with broad-spectrum antibiotics and await further family recommendations and apparently the nurse's recommendations to the family. MMROSEL / SUNDAYN: [id number] /
[2021-05-12 06:11] LABS: Glucose,Whole Blood 173 mg/dL (75-99)
[2021-05-12] MEDS: INSULIN ASPART (NovoLOG) 100 UNIT/ML VIAL SQ SCH ×2 (06:32→15:38)
[2021-05-12] MEDS: SYMBICORT 160-4.5 MCG INHALER INHALATION SCH (07:20)
[2021-05-12] MEDS: metFORMIN 500 MG TAB PO SCH ×2 (09:45→15:39)
[2021-05-12] MEDS: guaiFENesin 600 MG TABLET.ER PO SCH (09:45)
[2021-05-12] MEDS: FUROSEMIDE 20 MG TAB PO SCH (09:45)
[2021-05-12] MEDS: NON FORMULARY DRUG (Empagliflozin [Jardiance] 25 MG Tablet) PO SCH (09:45)
[2021-05-12] MEDS: TAMSULOSIN 0.4 MG CAP.ER.24H PO SCH (09:45)
[2021-05-12] MEDS: APIXABAN 2.5 MG TABLET PO SCH ×2 (09:45→15:39)
[2021-05-12] MEDS: METOPROLOL TARTRATE 25 MG TAB PO SCH ×2 (09:45→15:39)
[2021-05-12] MEDS: MENTHOL-ZINC OXIDE OINT 113 GM TUBE TOPICAL SCH (09:46)
[2021-05-12] MEDS: PIPERACILLIN-TAZOBACTAM 3.375 GM in SODIUM CHLORIDE 0.9% 100 ML IVPB SCH ×2 (09:46→15:39)
[2021-05-12] MEDS: dexAMETHasone 4 MG TAB PO SCH (10:42)
[2021-05-12 11:25] LABS: Glucose,Whole Blood 182 mg/dL (75-99)
[2021-05-12 11:58] VITALS: TEMP 97.7
[2021-05-12 11:59] VITALS: BP 148/93; PULSE 113
[2021-05-12] MEDS: LEVOFLOXACIN 500MG-D5W PMX 500 MG in DEXTROSE/WATER 1 100ML.BAG IVPB SCH (15:22)
--- NOTE | 2021-05-12 22:48 | P.PN ---
Subjective Progress Note Date: 05/12/21 Principal diagnosis: Aspiration pneumonia Patient is 85 year old male presenting to the hospital with increasing shortness of breath and hypoxemia patient was noticed to have evidence of pneumonia, patient has failed his swallow evaluation and concern for aspiration pneumonia. On today's evaluation that is 05/12/2021, the patient is afebrile, the patient slightly more awake and alert and is currently breathing comfortably on room air patient was asking for water no vomiting no diarrhea or any new changes reported by the nursing staff Objective - Vital Signs Vital signs: Vital Signs Temp 97.7 F 05/12/21 11:58 Pulse 113 H 05/12/21 11:58 Resp 18 05/12/21 11:58 BP 148/93 05/12/21 11:58 Pulse Ox 93 L 05/12/21 11:58 Intake & Output 05/11/21 05/12/21 05/12/21 18:59 06:59 18:59 Intake Total 100 0 110 Output Total 1 0 Balance 99 0 110 Weight 76.204 kg 76.204 kg Intake: IV 110 Invasive Line 2 10 Piperacillin-Tazobactam 3 100 .375 gm In Sodium Chloride 0.9% 100 ml @ 200 mls/hr IVPB Q8HR [facility] Rx#:[id number] Intake, IV Titration 100 Amount Piperacillin-Tazobactam 3 100 .375 gm In Sodium Chloride 0.9% 100 ml @ 200 mls/hr IVPB Q8HR [facility] Rx#:[id number] Oral 0 0 0 Output: Urine 1 Stool 0 Other: Voiding Method Diaper Diaper Diaper # Voids 2 2 1 # Bowel Movements 0 - Exam GENERAL DESCRIPTION: An elderly male lying in bed in no distress RESPIRATORY SYSTEM: Unlabored breathing , coarse breath sounds bilaterally HEART: S1 S2 regular rate and rhythm , ABDOMEN: Soft , no tenderness EXTREMITIES: No edema feet - Labs CBC & Chem 7: 05/10/21 13:32 05/10/21 13:32 Labs: Abnormal Lab Results - Last 24 Hours (Table) 05/11/21 05/11/21 05/12/21 Range/Units 16:29 20:16 06:10 POC Glucose (mg/dL) 174 H 161 H 173 H (75-99) mg/dL 05/12/21 Range/Units 11:24 POC Glucose (mg/dL) 182 H (75-99) mg/dL Microbiology - Last 24 Hours (Table) 05/10/21 19:15 Blood Culture - Preliminary Blood No Growth after 24 hours 05/10/21 19:00 Blood Culture - Preliminary Blood No Growth after 24 hours Assessment and Plan (1) Bilateral pneumonia Status: Acute Code(s): J18.9 - PNEUMONIA, UNSPECIFIED ORGANISM SNOMED Code(s): 378279540 Plan: 1patient presented to hospital with increasing shortness of breath and hypoxem ia with a chest x-ray and CT has been concerning for bibasilar pneumonia question of aspiration etiology in this patient did have a swallow evaluation and concerning for aspiration. Patient to continue with the Zosyn however with a possible plan for hospice antibiotics can be safely discontinued once patient is switched to hospice Time with Patient: Less than 30
--- NOTE | 2021-06-04 22:27 | DS ---
DISCHARGE SUMMARY DATE OF ADMISSION: 05/10/2021. DISCHARGE DATE: 05/12/2021. MEDICATION: [place] 5/325 every 6 hours. DuoNeb q.i.d., Mucinex 600 b.i.d., Eliquis 2.5 b.i.d. NovoLog a.c., q.h.s., Symbicort 160/4.5 two puffs b.i.d., Jardiance 25 mg daily, metformin 500 mg b.i.d., Lopressor 25 b.i.d., lisinopril 10 mg daily, Decadron 4 mg daily, Senna daily, magic Butt paste daily, Lasix 20 mg daily, Levaquin 500 daily, tamsulosin 0.4 mg daily. This patient came to the hospital with increasing shortness of breath, hypoxemia with aspiration pneumonia. He failed a swallow study. Family refused to have a PEG tube placed as he has had 1 amputation of the leg and is supposed to get another amputation per Dr. Carpenter, the vascular doctor saw him because of his poor living and prognosis with no legs. He did not want to put a PEG tube in for feeding as he was aspirating to give him a chance to recover from the pneumonia. They wanted to send him home like in comfort care and hospice to the group home and continue oral feedings as tolerated and not do a PEG tube, even though he failed a swallow eval. Family understands his poor prognosis and he is probably going to soon because he is aspirating when he swallows and they understand and that is what they want. MMODL / IJN: [id number] /
== END 2021-05-12 15:59 | disposition hospice, home (50) | DRG 177 ==
LOC: EC 13:08 → 3SCARD 16:18
PROVIDERS: ADMIT Family Medicine; ATTEND Family Medicine
PROC: 5A09357 Assistance with Respiratory Ventilation, Less than 24 Consecutive Hours, Continuous Positive Airway Pressure (ICD-10-PCS; principal; 2021-05-10)
DX: J69.0 Pneumonitis due to inhalation of food and vomit (principal); J96.01 Acute respiratory failure with hypoxia; J44.0 Chronic obstructive pulmonary disease with (acute) lower respiratory infection; I48.20 Chronic atrial fibrillation, unspecified; E87.2 Acidosis; I11.9 Hypertensive heart disease without heart failure; E86.0 Dehydration; E78.5 Hyperlipidemia, unspecified; Z20.822 Contact with and (suspected) exposure to COVID-19; Z96.1 Presence of intraocular lens; E11.40 Type 2 diabetes mellitus with diabetic neuropathy, unspecified; L89.610 Pressure ulcer of right heel, unstageable; Z96.643 Presence of artificial hip joint, bilateral; Z89.611 Acquired absence of right leg above knee; Z79.01 Long term (current) use of anticoagulants; Z86.14 Personal history of Methicillin resistant Staphylococcus aureus infection; Z79.899 Other long term (current) drug therapy; Z79.4 Long term (current) use of insulin; Z79.51 Long term (current) use of inhaled steroids; Z87.01 Personal history of pneumonia (recurrent); Z87.891 Personal history of nicotine dependence; Z98.42 Cataract extraction status, left eye; Z98.41 Cataract extraction status, right eye; Z86.73 Personal history of transient ischemic attack (TIA), and cerebral infarction without residual deficits; Z86.16 Personal history of COVID-19; Z82.5 Family history of asthma and other chronic lower respiratory diseases; Z82.49 Family history of ischemic heart disease and other diseases of the circulatory system
CPT/HCPCS: 36415; 71045; 71046; 71275; 74230; 80053; 83605; 83735; 83880; 84484; 85025; 85379; 85610; 85730; 87040; 87502; 87635; 93005; 94640; 94660; 94760; 96361; 96365; 96367; 99291